=== PATIENT | male | born 1940 | race Caucasian/White ===

== ENCOUNTER 2019-11-05 14:57 | Inpatient (IN) | payer MEDICARE, OTHER ==
--- NOTE | 2019-11-05 15:20 | EDM.PDOC ---
ED HPI GENERAL MEDICAL PROBLEM - General Chief Complaint: Respiratory Problem Stated Complaint: [facility] Time Seen by Provider: 11/05/19 15:18 Source of Information: Reports: Patient History Limitations: Reports: No Limitations - History of Present Illness INITIAL COMMENTS - FREE TEXT/NARRATIVE: pt arrived with a history of being sob. Onset: Other (this has been going on for 1 week. He was much more sob today. he has noticed increased swelling in his legs. ) Duration: Hour(s): Location: Reports: Chest, Lower Extremity, Left, Lower Extremity, Right Associated Symptoms: Reports: Cough, Shortness of Breath, Weakness - Related Data Allergies Allergy/AdvReac Type Severity Reaction Status Date / Time No Known Allergies Allergy Verified 11/05/19 15:13 Home Meds: Home Meds Albuterol [Proventil Neb Soln] 1 ampule NEB Q4HRRT PRN 09/24/13 [History] Albuterol [Ventolin HFA] 2 puff INH Q4H PRN 09/24/13 [History] Cyclobenzaprine [Flexeril] 10 - 15 mg PO BEDTIME PRN 09/24/13 [History] Escitalopram [Lexapro] 10 mg PO DAILY 09/24/13 [History] Isosorbide Mononitrate [Imdur] 30 mg PO DAILY 09/24/13 [History] Lisinopril [Zestril] 2.5 mg PO DAILY 09/24/13 [History] Montelukast [Singulair] 10 mg PO DAILY 09/24/13 [History] Nitroglycerin [Nitrostat] 0.4 mg SL ASDIRECTED PRN 09/24/13 [History] Pramipexole [Mirapex] 2 mg PO BEDTIME 09/24/13 [History] Zolpidem Tartrate [Ambien Cr] 12.5 mg PO BEDTIME 09/24/13 [History] atorvaSTATin [Lipitor] 20 mg PO BEDTIME 09/24/13 [History] hydroCHLOROthiazide [Hydrochlorothiazide] 25 mg PO DAILY 09/24/13 [History] metFORMIN HCl [Glucophage] 1,000 mg PO BIDM 09/24/13 [History] traZODone HCl [Trazodone HCl] 150 mg PO BEDTIME 09/24/13 [History] Aspirin [Low Dose Aspirin EC] 81 mg PO DAILY 09/30/14 [History] Fluticasone Propionate [Flonase] 2 spray NS DAILY 09/30/14 [History] Triamcinolone Acetonide [Kenalog 0.1% Crm] 1 applic TOP BID 09/30/14 [History] Furosemide [Lasix] 20 mg PO DAILY 09/16/16 [History] Exenatide Microspheres [Bydureon Pen] 2 mg SQ WEEKLY 09/18/16 [History] Insulin Glargine,Hum.Rec.Anlog [Lantus Solostar] 14 units SQ Q12H 11/05/19 [ History] Tamsulosin HCl [Flomax] 0.4 mg PO DAILY 11/05/19 [History] Tolterodine Tartrate [Detrol LA] 4 mg PO DAILY 11/05/19 [History] glipiZIDE [Glucotrol] 10 mg PO BID 11/05/19 [History] predniSONE [Prednisone] 5 mg PO DAILY 11/05/19 [History] Albuterol [Proventil Neb Soln] 2.5 mg NEB Q4H PRN #60 neb 11/07/19 [Rx] predniSONE 40 mg PO DAILY #6 tablet 11/07/19 [Rx] Past Medical History HEENT History: Reports: Cataract, Impaired Vision Cardiovascular History: Reports: CAD, High Cholesterol, Hypertension, SOB on Exertion, Stents Respiratory History: Reports: Bronchitis, Recurrent, COPD, Sleep Apnea, SOB Gastrointestinal History: Reports: Colon Polyp, GERD, Hemorrhoids Genitourinary History: Reports: UTI, Recurrent Musculoskeletal History: Reports: Back Pain, Chronic, Fracture, Neck Pain, Chronic, Osteoarthritis Neurological History: Reports: None Psychiatric History: Reports: Depression Endocrine/Metabolic History: Reports: Diabetes, Type II, Obesity/BMI 30+ Dermatologic History: Reports: Eczema - Infectious Disease History Infectious Disease History: Reports: Chicken Pox, Measles, Mumps, Pertussis ( Whooping Cough) - Past Surgical History HEENT Surgical History: Reports: Cataract Surgery Cardiovascular Surgical History: Reports: Coronary Artery Stent Neurological Surgical History: Reports: Discectomy Social & Family History - Tobacco Use Smoking Status *Q: Former Smoker Used Tobacco, but Quit: Yes Month/Year Tobacco Last Used: 2005 - Caffeine Use Caffeine Use: Reports: Coffee - Recreational Drug Use Recreational Drug Use: No ED ROS GENERAL - Review of Systems Review Of Systems: See Below Constitutional: Reports: Malaise, Weakness, Decreased Appetite HEENT: Reports: No Symptoms Respiratory: Reports: Shortness of Breath, Wheezing, Cough Cardiovascular: Reports: No Symptoms Endocrine: Reports: No Symptoms GI/Abdominal: Reports: No Symptoms : Reports: No Symptoms Skin: Reports: No Symptoms Neurological: Reports: No Symptoms Psychiatric: Reports: Anxiety ED EXAM, GENERAL - Physical Exam Exam: See Below Free Text/Narrative:: pt has noticed increased ankle swelling and increased sob for 1 week. He has not had a fever. He was much worse today. He has been coughing but it is non productive. Exam Limited By: No Limitations General Appearance: Alert, Anxious, Moderate Distress Ears: Normal TMs Nose: Normal Inspection Throat/Mouth: Normal Inspection Head: Atraumatic Neck: Normal Inspection Respiratory/Chest: Decreased Breath Sounds, Rales, Wheezing Cardiovascular: Regular Rate, Rhythm, Tachycardia, Irregularly Irregular GI/Abdominal: Soft (Male) Exam: Deferred Rectal (Males) Exam: Deferred Back Exam: Normal Inspection Extremities: Pedal Edema, Other ( plus 2 edema. ) Psychiatric: Normal Affect, Anxious Course - Vital Signs Last Recorded V/S: Last Vital Signs Temp 35.5 C L 11/07/19 07:30 Pulse 90 11/07/19 10:52 Resp 16 11/07/19 07:30 BP 160/65 H 11/07/19 10:10 Pulse Ox 94 L 11/07/19 07:30 - Orders/Labs/Meds Labs: Laboratory Tests 11/05/19 11/05/19 11/05/19 Range/Units 15:36 15:36 15:45 WBC 9.2 (4.5-11.0) K/uL RBC 4.44 (4.30-5.90) M/uL Hgb 12.7 (12.0-15.0) g/dL Hct 40.5 (40.0-54.0) % MCV 91 (80-98) fL MCH 29 (27-31) pg MCHC 31 L (32-36) % Plt Count 183 (150-400) K/uL Neut % (Auto) 80 H (36-66) % Lymph % (Auto) 12 L (24-44) % Smith % (Auto) 6 (2-6) % Eos % (Auto) 1 L (2-4) % Baso % (Auto) 0 (0-1) % D-Dimer, Quantitative (0.0-400.0) ng/mL Puncture Site ABG pH (7.350-7.450) ABG pCO2 (35.0-42.0) mmHg ABG pO2 (75.0-100.0) mmHg ABG HCO3 (22.0-26.0) mmol/L ABG Total CO2 (23.0-27.0) mmol/L ABG O2 Saturation (95.0-98.0) % ABG O2 Content (15.0-23.0) %vol ABG Base Excess mm/L ABG Hemoglobin (13.5-18.0) g/dL ABG Oxyhemoglobin % ABG Carboxyhemoglobin (0.0-1.6) % ABG Methemoglobin % Antoine Test O2 Delivery Device Sodium 142 (140-148) mmol/L Potassium 3.9 (3.6-5.2) mmol/L Chloride 104 (100-108) mmol/L Carbon Dioxide 26 (21-32) mmol/L Anion Gap 12.4 (5.0-14.0) mmol/L BUN 12 (7-18) mg/dL Creatinine 1.3 (0.8-1.3) mg/dL Est Cr Clr Drug Dosing 38.30 mL/min Estimated GFR (MDRD) 54 L (>60) Glucose 111 H (74-106) mg/dL Calcium 8.2 L (8.5-10.1) mg/dL Total Bilirubin 0.3 (0.2-1.0) mg/dL AST 15 (15-37) U/L ALT 29 (12-78) U/L Alkaline Phosphatase 127 H (46-116) U/L Troponin I (0.000-0.056) ng/mL NT-Pro-B Natriuret Pep 261 (5-450) pg/mL Total Protein 6.6 (6.4-8.2) g/dL Albumin 3.2 L (3.4-5.0) g/dL Globulin 3.4 (2.3-3.5) g/dL Albumin/Globulin Ratio 0.9 L (1.2-2.2) Urine Color (YELLOW) Urine Appearance (CLEAR) Urine pH (5.0-8.0) Ur Specific [place] (1.008-1.030) Urine Protein (NEGATIVE) mg/dL Urine Glucose (UA) (NEGATIVE) mg/dL Urine Ketones (NEGATIVE) mg/dL Urine Occult Blood (NEGATIVE) Urine Nitrite (NEGATIVE) Urine Bilirubin (NEGATIVE) Urine Urobilinogen (0.2-1.0) EU/dL Ur Leukocyte Esterase (NEGATIVE) Urine RBC (0-5) Urine WBC (0-5) Ur Epithelial Cells Amorphous Sediment Urine Bacteria Urine Mucus 11/05/19 11/05/19 11/05/19 Range/Units 15:46 15:47 16:38 WBC (4.5-11.0) K/uL RBC (4.30-5.90) M/uL Hgb (12.0-15.0) g/dL Hct (40.0-54.0) % MCV (80-98) fL MCH (27-31) pg MCHC (32-36) % Plt Count (150-400) K/uL Neut % (Auto) (36-66) % Lymph % (Auto) (24-44) % Smith % (Auto) (2-6) % Eos % (Auto) (2-4) % Baso % (Auto) (0-1) % D-Dimer, Quantitative (0.0-400.0) ng/mL Puncture Site Rt radial ABG pH 7.445 (7.350-7.450) ABG pCO2 36.3 (35.0-42.0) mmHg ABG pO2 69.7 L (75.0-100.0) mmHg ABG HCO3 24.5 (22.0-26.0) mmol/L ABG Total CO2 22.0 L (23.0-27.0) mmol/L ABG O2 Saturation 93.5 L (95.0-98.0) % ABG O2 Content 15.7 (15.0-23.0) %vol ABG Base Excess 1.1 mm/L ABG Hemoglobin 12.1 L (13.5-18.0) g/dL ABG Oxyhemoglobin 91.8 % ABG Carboxyhemoglobin 1.1 (0.0-1.6) % ABG Methemoglobin 0.7 % Antoine Test Passed O2 Delivery Device Nasal cannula Sodium (140-148) mmol/L Potassium (3.6-5.2) mmol/L Chloride (100-108) mmol/L Carbon Dioxide (21-32) mmol/L Anion Gap (5.0-14.0) mmol/L BUN (7-18) mg/dL Creatinine (0.8-1.3) mg/dL Est Cr Clr Drug Dosing mL/min Estimated GFR (MDRD) (>60) Glucose (74-106) mg/dL Calcium (8.5-10.1) mg/dL Total Bilirubin (0.2-1.0) mg/dL AST (15-37) U/L ALT (12-78) U/L Alkaline Phosphatase (46-116) U/L Troponin I < 0.017 (0.000-0.056) ng/mL NT-Pro-B Natriuret Pep (5-450) pg/mL Total Protein (6.4-8.2) g/dL Albumin (3.4-5.0) g/dL Globulin (2.3-3.5) g/dL Albumin/Globulin Ratio (1.2-2.2) Urine Color Yellow (YELLOW) Urine Appearance Clear (CLEAR) Urine pH 5.5 (5.0-8.0) Ur Specific [place] 1.020 (1.008-1.030) Urine Protein 30 H (NEGATIVE) mg/dL Urine Glucose (UA) Negative (NEGATIVE) mg/dL Urine Ketones Negative (NEGATIVE) mg/dL Urine Occult Blood Negative (NEGATIVE) Urine Nitrite Negative (NEGATIVE) Urine Bilirubin Negative (NEGATIVE) Urine Urobilinogen 0.2 (0.2-1.0) EU/dL Ur Leukocyte Esterase Small H (NEGATIVE) Urine RBC Not seen (0-5) Urine WBC 0-5 (0-5) Ur Epithelial Cells Not seen Amorphous Sediment Few Urine Bacteria Not seen Urine Mucus Not seen 11/05/19 Range/Units 16:39 WBC (4.5-11.0) K/uL RBC (4.30-5.90) M/uL Hgb (12.0-15.0) g/dL Hct (40.0-54.0) % MCV (80-98) fL MCH (27-31) pg MCHC (32-36) % Plt Count (150-400) K/uL Neut % (Auto) (36-66) % Lymph % (Auto) (24-44) % Smith % (Auto) (2-6) % Eos % (Auto) (2-4) % Baso % (Auto) (0-1) % D-Dimer, Quantitative 514 H (0.0-400.0) ng/mL Puncture Site ABG pH (7.350-7.450) ABG pCO2 (35.0-42.0) mmHg ABG pO2 (75.0-100.0) mmHg ABG HCO3 (22.0-26.0) mmol/L ABG Total CO2 (23.0-27.0) mmol/L ABG O2 Saturation (95.0-98.0) % ABG O2 Content (15.0-23.0) %vol ABG Base Excess mm/L ABG Hemoglobin (13.5-18.0) g/dL ABG Oxyhemoglobin % ABG Carboxyhemoglobin (0.0-1.6) % ABG Methemoglobin % Antoine Test O2 Delivery Device Sodium (140-148) mmol/L Potassium (3.6-5.2) mmol/L Chloride (100-108) mmol/L Carbon Dioxide (21-32) mmol/L Anion Gap (5.0-14.0) mmol/L BUN (7-18) mg/dL Creatinine (0.8-1.3) mg/dL Est Cr Clr Drug Dosing mL/min Estimated GFR (MDRD) (>60) Glucose (74-106) mg/dL Calcium (8.5-10.1) mg/dL Total Bilirubin (0.2-1.0) mg/dL AST (15-37) U/L ALT (12-78) U/L Alkaline Phosphatase (46-116) U/L Troponin I (0.000-0.056) ng/mL NT-Pro-B Natriuret Pep (5-450) pg/mL Total Protein (6.4-8.2) g/dL Albumin (3.4-5.0) g/dL Globulin (2.3-3.5) g/dL Albumin/Globulin Ratio (1.2-2.2) Urine Color (YELLOW) Urine Appearance (CLEAR) Urine pH (5.0-8.0) Ur Specific [place] (1.008-1.030) Urine Protein (NEGATIVE) mg/dL Urine Glucose (UA) (NEGATIVE) mg/dL Urine Ketones (NEGATIVE) mg/dL Urine Occult Blood (NEGATIVE) Urine Nitrite (NEGATIVE) Urine Bilirubin (NEGATIVE) Urine Urobilinogen (0.2-1.0) EU/dL Ur Leukocyte Esterase (NEGATIVE) Urine RBC (0-5) Urine WBC (0-5) Ur Epithelial Cells Amorphous Sediment Urine Bacteria Urine Mucus Meds: Medications Discontinued Medications Generic Name Dose Route Start Last Admin Trade Name Freq PRN Reason Stop Dose Admin Acetaminophen 650 mg 11/05/19 17:25 Tylenol PO Q4H PRN Pain (Mild 1-3)/fever Albuterol 2.5 mg 11/05/19 15:42 11/05/19 15:45 Proventil Neb Soln NEB 11/05/19 15:43 2.5 mg ONETIME ONE Administration Albuterol Confirm 11/05/19 15:41 11/05/19 15:55 Proventil Neb Soln Administered 11/05/19 15:42 Not Given Dose 2.5 mg .ROUTE .STK-MED ONE Albuterol 2.5 mg 11/05/19 17:25 11/06/19 01:26 Proventil Neb Soln NEB 2.5 mg Q4H PRN Administration Shortness Of Breath/wheezing Albuterol/Ipratropium 3 ml 11/05/19 21:00 11/07/19 10:50 Duoneb 3.0-0.5 Mg/3 Ml NEB 3 ml QIDRT KAYLA Administration Aspirin 81 mg 11/06/19 09:00 11/07/19 08:01 Halfprin PO 81 mg DAILY KAYLA Administration Atorvastatin Calcium 20 mg 11/05/19 21:00 11/06/19 21:02 Lipitor PO 20 mg BEDTIME KAYLA Administration Cyclobenzaprine HCl 10 mg 11/05/19 21:19 11/05/19 21:33 Flexeril PO 10 mg BEDTIME PRN Administration Muscle Spasm Dextrose 15 gm 11/05/19 17:25 Glutose 15 PO ONETIME PRN Hypoglycemia Dextrose/Water 50 ml 11/05/19 17:25 Dextrose 50% In Water IV ONETIME PRN Hypoglycemia Enoxaparin Sodium 40 mg 11/05/19 21:00 11/06/19 21:02 Lovenox SUBCUT 40 mg BEDTIME KAYLA Administration Escitalopram Oxalate 10 mg 11/06/19 09:00 11/07/19 08:01 Lexapro PO 10 mg DAILY KAYLA Administration Fluticasone Propionate 0 gm 11/06/19 09:00 11/07/19 08:01 Flonase NASBOTH 2 sprays DAILY KAYLA Administration Furosemide 60 mg 11/05/19 16:37 11/05/19 19:41 Lasix IVPUSH 11/05/19 16:38 Not Given ONETIME ONE Furosemide 20 mg 11/06/19 09:00 11/07/19 08:00 Lasix PO 20 mg DAILY KAYLA Administration Glipizide 10 mg 11/05/19 21:00 11/07/19 08:01 Glucotrol PO 10 mg BID KAYLA Administration Hydrochlorothiazide 25 mg 11/06/19 09:00 11/07/19 08:01 Hydrochlorothiazide PO 25 mg DAILY KAYLA Administration Sodium Chloride 1,000 mls @ 150 mls/hr 11/05/19 17:00 Normal Saline IV ASDIRECTED KAYLA Sodium Chloride 100 mls @ 3 mls/sec 11/05/19 17:00 Normal Saline IV ASDIRECTED [facility] Insulin Glargine 14 units 11/05/19 21:00 11/07/19 10:06 Lantus Solostar SUBCUT Not Given BID [facility] Insulin Human Lispro 0 unit 11/05/19 17:25 11/07/19 07:39 Humalog SUBCUT 1 unit QIDACANDBED [facility] Administration Protocol Iopamidol 100 ml 11/05/19 17:00 [id number] (76%) IV . DIRECTED [facility] Isosorbide Mononitrate 30 mg 11/06/19 09:00 11/07/19 08:00 Imdur PO 30 mg DAILY KAYLA Administration Lisinopril 2.5 mg 11/06/19 09:00 11/07/19 10:10 Prinivil PO 2.5 mg DAILY KAYLA Administration Metformin HCl 1,000 mg 11/05/19 17:25 11/07/19 08:00 Glucophage PO 1,000 mg BIDM KAYLA Administration Methylprednisolone Sodium Succinate 125 mg 11/05/19 16:13 11/05/19 16:25 Solu-Medrol IVPUSH 11/05/19 16:14 125 mg ONETIME ONE Administration Methylprednisolone Sodium Succinate 40 mg 11/05/19 22:00 11/06/19 03:27 Solu-Medrol IVPUSH 40 mg Q6H KAYLA Administration Methylprednisolone Sodium Succinate 40 mg 11/06/19 16:00 11/07/19 03:32 Solu-Medrol IVPUSH 40 mg Q12H KAYLA Administration Montelukast Sodium 10 mg 11/06/19 09:00 11/07/19 08:01 Singulair PO 10 mg DAILY KAYLA Administration Ondansetron HCl 4 mg 11/05/19 17:25 Zofran IV Q4H PRN Nausea/Vomiting Polyethylene Glycol 17 gm 11/05/19 17:25 Miralax PO DAILY PRN Constipation Pramipexole Dihydrochloride 2 mg 11/05/19 21:00 11/06/19 21:00 Mirapex PO 2 mg BEDTIME KAYLA Administration Prednisone 40 mg 11/07/19 09:30 11/07/19 10:10 Prednisone PO 40 mg DAILY KAYLA Administration Sodium Chloride 10 ml 11/05/19 16:12 11/05/19 16:25 Saline Flush FLUSH 10 ml ASDIRECTED PRN Administration Keep Vein Open Sodium Chloride 10 ml 11/05/19 17:25 Saline Flush FLUSH ASDIRECTED PRN Keep Vein Open Tamsulosin HCl 0.4 mg 11/06/19 09:00 11/07/19 08:01 Flomax PO 0.4 mg DAILY KAYLA Administration Tolterodine Tartrate 2 mg 11/06/19 09:00 11/07/19 08:00 Detrol PO 2 mg BID KAYLA Administration Trazodone HCl 150 mg 11/05/19 21:00 11/06/19 21:01 Trazodone PO 150 mg BEDTIME KAYLA Administration Zolpidem Tartrate 10 mg 11/05/19 21:00 11/06/19 21:01 Ambien PO 10 mg BEDTIME KAYLA Administration - Re-Assessments/Exams Free Text/Narrative Re-Assessment/Exam: 11/05/19 16:48 chest xray showed a infiltrate and a cat scan of the chest was obtained. Pt is in atrial fib. He has a rhythm strip from 2017 which did show atrial fib. He has not had a fwever. He has not traveled or had company from out of the area. 11/05/19 16:57 Departure - Departure Time of Disposition: 10:55 Disposition: Admitted As Inpatient 68 Condition: Fair Clinical Impression: COPD exacerbation, Fluid overload - Discharge Information Sepsis Event Note - Focused Exam Date Exam was Performed: 11/08/19 Time Exam was Performed: 19:07
[2019-11-05] MEDS ORDERED: Albuterol 0.083% 2.5 MG/3 ML Neb Soln ONE (15:41)
[2019-11-05] MEDS ORDERED: Albuterol 0.083% 2.5 MG/3 ML Neb Soln NEB ONE (15:42)
[2019-11-05] MEDS ORDERED: Sodium Chloride 0.9% 10 ML Syringe FLUSH PRN ×2 (16:12→17:25)
[2019-11-05] MEDS ORDERED: methylPREDNISolone Sodium Succinate 125 MG/2 ML SDV IVPUSH ONE (16:13)
[2019-11-05] MEDS ORDERED: Furosemide 40 MG/4 ML VIAL IVPUSH ONE (16:37)
--- NOTE | 2019-11-05 16:44 | CRLCR ---
Indication: Shortness of breath Technique: Chest 2 views Comparison: None Findings: Cardiovascular and mediastinum: Heart size and vasculature are normal in caliber and appearance. Lungs and pleural spaces: Perihilar congestive changes are present. Questionable nodular opacity in the lateral left mid lung. Remainder of the lungs and pleural spaces are clear. Bones and soft tissues: No significant findings. Impression: 1. Congestive changes in the hilar regions are nonspecific. Acute infectious or inflammatory process is not definite but possible. 2. Nodular opacity in the lateral left lung is indeterminate. 3. Short-term follow-up PA and lateral chest x-ray or CT evaluation is recommended. Dictated by Omar Calzada MD @ 11/05/2019 4:42:46 PM Dictated by: Omar Calzada MD @ 11/05/2019 16:42:52 (Electronically Signed)
[2019-11-05] MEDS ORDERED: Iopamidol 755 Mg/ML 100 ML Bottle IV SCH (17:00)
[2019-11-05] MEDS ORDERED: Sodium Chloride 0.9% 1,000 ML IV SCH (17:00)
[2019-11-05] MEDS ORDERED: Sodium Chloride 0.9% 100 ML IV SCH (17:00)
--- NOTE | 2019-11-05 17:00 | PCM.HP.2 ---
H&P History of Present Illness - General Date of Service: 11/05/19 Admit Problem/Dx: Admission Diagnosis/Problem Admission Diagnosis/Problem Dyspnea Source of Information: Patient, Provider, RN Notes Reviewed History Limitations: Reports: No Limitations - History of Present Illness Initial Comments - Free Text/Narative: Mr. Corbin is a 79-year-old gentleman who is admitted through the emergency department with shortness of breath secondary to COPD exacerbation. He has a known history of COPD, does not currently require oxygen at home. Over the last 3 weeks he has become progressively more short of breath to the point where he become short of breath with very minimal exertion. He has not had nocturnal dyspnea or significant shortness of breath at rest. He does have a known history of coronary artery disease but denies previous diagnosis of congestive heart failure. On evaluation in the emergency department BNP is within normal range. He was found to have peripheral edema which she reports has been worse recently. CT scan of the chest shows no new infiltrates, evidence of previous pleural disease and lung changes which are chronic. - Related Data Allergies/Adverse Reactions: Allergies Allergy/AdvReac Type Severity Reaction Status Date / Time No Known Allergies Allergy Verified 11/05/19 15:13 Home Medications: Home Meds Albuterol [Proventil Neb Soln] 1 ampule NEB Q4HRRT PRN 09/24/13 [History] Albuterol [Ventolin HFA] 2 puff INH Q4H PRN 09/24/13 [History] Cyclobenzaprine [Flexeril] 10 - 15 mg PO BEDTIME PRN 09/24/13 [History] Escitalopram [Lexapro] 10 mg PO DAILY 09/24/13 [History] Isosorbide Mononitrate [Imdur] 30 mg PO DAILY 09/24/13 [History] Lisinopril [Zestril] 2.5 mg PO DAILY 09/24/13 [History] Montelukast [Singulair] 10 mg PO DAILY 09/24/13 [History] Nitroglycerin [Nitrostat] 0.4 mg SL ASDIRECTED PRN 09/24/13 [History] Pramipexole [Mirapex] 2 mg PO BEDTIME 09/24/13 [History] Zolpidem Tartrate [Ambien Cr] 12.5 mg PO BEDTIME 09/24/13 [History] atorvaSTATin [Lipitor] 20 mg PO BEDTIME 09/24/13 [History] hydroCHLOROthiazide [Hydrochlorothiazide] 25 mg PO DAILY 09/24/13 [History] metFORMIN HCl [Glucophage] 1,000 mg PO BIDM 09/24/13 [History] traZODone HCl [Trazodone HCl] 150 mg PO BEDTIME 09/24/13 [History] Aspirin [Low Dose Aspirin EC] 81 mg PO DAILY 09/30/14 [History] Fluticasone Propionate [Flonase] 2 spray NS DAILY 09/30/14 [History] Triamcinolone Acetonide [Kenalog 0.1% Crm] 1 applic TOP BID 09/30/14 [History] Furosemide [Lasix] 20 mg PO DAILY 09/16/16 [History] Exenatide Microspheres [Bydureon Pen] 2 mg SQ WEEKLY 09/18/16 [History] Insulin Glargine,Hum.Rec.Anlog [Lantus Solostar] 14 units SQ Q12H 11/05/19 [ History] Tamsulosin HCl [Flomax] 0.4 mg PO DAILY 11/05/19 [History] Tolterodine Tartrate [Detrol LA] 4 mg PO DAILY 11/05/19 [History] glipiZIDE [Glucotrol] 10 mg PO BID 11/05/19 [History] predniSONE [Prednisone] 5 mg PO DAILY 11/05/19 [History] Past Medical History HEENT History: Reports: Cataract, Impaired Vision Cardiovascular History: Reports: CAD, High Cholesterol, Hypertension, SOB on Exertion, Stents Respiratory History: Reports: Bronchitis, Recurrent, COPD, Sleep Apnea, SOB Gastrointestinal History: Reports: Colon Polyp, GERD, Hemorrhoids Genitourinary History: Reports: UTI, Recurrent Musculoskeletal History: Reports: Back Pain, Chronic, Fracture, Neck Pain, Chronic, Osteoarthritis Neurological History: Reports: None Psychiatric History: Reports: Depression Endocrine/Metabolic History: Reports: Diabetes, Type II, Obesity/BMI 30+ Dermatologic History: Reports: Eczema - Infectious Disease History Infectious Disease History: Reports: Chicken Pox, Measles, Mumps, Pertussis ( Whooping Cough) - Past Surgical History HEENT Surgical History: Reports: Cataract Surgery Cardiovascular Surgical History: Reports: Coronary Artery Stent Neurological Surgical History: Reports: Discectomy Social & Family History - Tobacco Use Smoking Status *Q: Former Smoker Used Tobacco, but Quit: Yes Month/Year Tobacco Last Used: 2005 - Caffeine Use Caffeine Use: Reports: Coffee - Recreational Drug Use Recreational Drug Use: No H&P Review of Systems - Review of Systems: Review Of Systems: See Below General: Denies: Fever, Chills, Weakness HEENT: Reports: No Symptoms Pulmonary: Reports: Shortness of Breath, Wheezing. Denies: Pleuritic Chest Pain , Cough, Sputum, Hemoptysis Cardiovascular: Reports: Dyspnea on Exertion, Edema. Denies: Chest Pain, Palpitations, Orthopnea, PND, Lightheadedness, Syncope Gastrointestinal: Reports: No Symptoms Genitourinary: Reports: No Symptoms Musculoskeletal: Reports: No Symptoms Skin: Reports: No Symptoms Psychiatric: Reports: No Symptoms Neurological: Reports: No Symptoms Hematologic/Lymphatic: Reports: No Symptoms Immunologic: Reports: No Symptoms Exam - Exam Exam: See Below - Vital Signs Vital Signs: Last Vital Signs Temp 96.7 F L 11/05/19 15:19 Pulse 95 11/05/19 16:27 Resp 22 H 11/05/19 15:19 BP 143/74 H 11/05/19 16:27 Pulse Ox 95 11/05/19 16:27 Weight: 259 lb - Exam Quality Assessment: Supplemental Oxygen, DVT Prophylaxis General: Alert, Oriented, Cooperative, Moderate Distress HEENT: Conjunctiva Clear, Hearing Intact, Mucosa Moist & [place], Normal Nasal Septum, Posterior Pharynx Clear, Pupils Equal Neck: Supple, Trachea Midline, +2 Carotid Pulse wo Bruit Lungs: Normal Respiratory Effort, Decreased Breath Sounds, Wheezing. No: Rales , Rhonchi Cardiovascular: Regular Rate, Regular Rhythm, Normal S1, Normal S2. No: Systolic Murmur, Diastolic Murmur GI/Abdominal Exam: Soft, Non-Tender, No Organomegaly, No Distention Back Exam: Normal Inspection, Full Range of Motion Extremities: Non-Tender, Pedal Edema Skin: Warm, Dry, Intact Neurological: Cranial Nerves Intact, Strength Equal Bilateral, Normal Speech, Normal Tone, Sensation Intact. No: Focal Deficit Neuro Extensive - Mental Status: Alert, Oriented x3, Normal Mood/Affect, Normal Cognition, Memory Intact - Patient Data Lab Results Last 24 hrs: Laboratory Results - last 24 hr 11/05/19 11/05/19 11/05/19 Range/Units 15:36 15:36 15:45 WBC 9.2 (4.5-11.0) K/uL RBC 4.44 (4.30-5.90) M/uL Hgb 12.7 (12.0-15.0) g/dL Hct 40.5 (40.0-54.0) % MCV 91 (80-98) fL MCH 29 (27-31) pg MCHC 31 L (32-36) % Plt Count 183 (150-400) K/uL Neut % (Auto) 80 H (36-66) % Lymph % (Auto) 12 L (24-44) % [place] % (Auto) 6 (2-6) % Eos % (Auto) 1 L (2-4) % Baso % (Auto) 0 (0-1) % Puncture Site ABG pH (7.350-7.450) ABG pCO2 (35.0-42.0) mmHg ABG pO2 (75.0-100.0) mmHg ABG HCO3 (22.0-26.0) mmol/L ABG Total CO2 (23.0-27.0) mmol/L ABG O2 Saturation (95.0-98.0) % ABG O2 Content (15.0-23.0) %vol ABG Base Excess mm/L ABG Hemoglobin (13.5-18.0) g/dL ABG Oxyhemoglobin % ABG Carboxyhemoglobin (0.0-1.6) % ABG Methemoglobin % Antoine Test O2 Delivery Device Sodium 142 (140-148) mmol/L Potassium 3.9 (3.6-5.2) mmol/L Chloride 104 (100-108) mmol/L Carbon Dioxide 26 (21-32) mmol/L Anion Gap 12.4 (5.0-14.0) mmol/L BUN 12 (7-18) mg/dL Creatinine 1.3 (0.8-1.3) mg/dL Est Cr Clr Drug Dosing 38.30 mL/min Estimated GFR (MDRD) 54 L (>60) Glucose 111 H (74-106) mg/dL Calcium 8.2 L (8.5-10.1) mg/dL Total Bilirubin 0.3 (0.2-1.0) mg/dL AST 15 (15-37) U/L ALT 29 (12-78) U/L Alkaline Phosphatase 127 H (46-116) U/L Troponin I (0.000-0.056) ng/mL NT-Pro-B Natriuret Pep 261 (5-450) pg/mL Total Protein 6.6 (6.4-8.2) g/dL Albumin 3.2 L (3.4-5.0) g/dL Globulin 3.4 (2.3-3.5) g/dL Albumin/Globulin Ratio 0.9 L (1.2-2.2) Urine Color (YELLOW) Urine Appearance (CLEAR) Urine pH (5.0-8.0) Ur Specific [place] (1.008-1.030) Urine Protein (NEGATIVE) mg/dL Urine Glucose (UA) (NEGATIVE) mg/dL Urine Ketones (NEGATIVE) mg/dL Urine Occult Blood (NEGATIVE) Urine Nitrite (NEGATIVE) Urine Bilirubin (NEGATIVE) Urine Urobilinogen (0.2-1.0) EU/dL Ur Leukocyte Esterase (NEGATIVE) Urine RBC (0-5) Urine WBC (0-5) Ur Epithelial Cells Amorphous Sediment Urine Bacteria Urine Mucus 11/05/19 11/05/19 11/05/19 Range/Units 15:46 15:47 16:38 WBC (4.5-11.0) K/uL RBC (4.30-5.90) M/uL Hgb (12.0-15.0) g/dL Hct (40.0-54.0) % MCV (80-98) fL MCH (27-31) pg MCHC (32-36) % Plt Count (150-400) K/uL Neut % (Auto) (36-66) % Lymph % (Auto) (24-44) % [place] % (Auto) (2-6) % Eos % (Auto) (2-4) % Baso % (Auto) (0-1) % Puncture Site Rt radial ABG pH 7.445 (7.350-7.450) ABG pCO2 36.3 (35.0-42.0) mmHg ABG pO2 69.7 L (75.0-100.0) mmHg ABG HCO3 24.5 (22.0-26.0) mmol/L ABG Total CO2 22.0 L (23.0-27.0) mmol/L ABG O2 Saturation 93.5 L (95.0-98.0) % ABG O2 Content 15.7 (15.0-23.0) %vol ABG Base Excess 1.1 mm/L ABG Hemoglobin 12.1 L (13.5-18.0) g/dL ABG Oxyhemoglobin 91.8 % ABG Carboxyhemoglobin 1.1 (0.0-1.6) % ABG Methemoglobin 0.7 % Antoine Test Passed O2 Delivery Device Nasal cannula Sodium (140-148) mmol/L Potassium (3.6-5.2) mmol/L Chloride (100-108) mmol/L Carbon Dioxide (21-32) mmol/L Anion Gap (5.0-14.0) mmol/L BUN (7-18) mg/dL Creatinine (0.8-1.3) mg/dL Est Cr Clr Drug Dosing mL/min Estimated GFR (MDRD) (>60) Glucose (74-106) mg/dL Calcium (8.5-10.1) mg/dL Total Bilirubin (0.2-1.0) mg/dL AST (15-37) U/L ALT (12-78) U/L Alkaline Phosphatase (46-116) U/L Troponin I < 0.017 (0.000-0.056) ng/mL NT-Pro-B Natriuret Pep (5-450) pg/mL Total Protein (6.4-8.2) g/dL Albumin (3.4-5.0) g/dL Globulin (2.3-3.5) g/dL Albumin/Globulin Ratio (1.2-2.2) Urine Color Yellow (YELLOW) Urine Appearance Clear (CLEAR) Urine pH 5.5 (5.0-8.0) Ur Specific [place] 1.020 (1.008-1.030) Urine Protein 30 H (NEGATIVE) mg/dL Urine Glucose (UA) Negative (NEGATIVE) mg/dL Urine Ketones Negative (NEGATIVE) mg/dL Urine Occult Blood Negative (NEGATIVE) Urine Nitrite Negative (NEGATIVE) Urine Bilirubin Negative (NEGATIVE) Urine Urobilinogen 0.2 (0.2-1.0) EU/dL Ur Leukocyte Esterase Small H (NEGATIVE) Urine RBC Not seen (0-5) Urine WBC 0-5 (0-5) Ur Epithelial Cells Not seen Amorphous Sediment Few Urine Bacteria Not seen Urine Mucus Not seen Result Diagrams: 11/05/19 15:36 11/05/19 15:36 Sepsis Event Note - Evaluation Sepsis Screening Result: No Definite Risk - Focused Exam Vital Signs: Vital Signs Temp Pulse Resp BP Pulse Ox 11/05/19 16:27 95 143/74 H 95 11/05/19 15:58 93 172/74 H 96 11/05/19 15:19 96.7 F L 98 22 H 170/90 H 95 11/05/19 15:02 96.7 F L 98 22 H 170/90 H 95 Date Exam was Performed: 11/05/19 Time Exam was Performed: 17:56 *Q Meaningful Use (ADM) - VTE Risk Assess *Q Each Risk Factor Represents 1 Point: Swollen Legs, Current, Obesity ( BMI > 25 kg/m2), Abnormal Pulmonary Function (COPD) Total Score 1 Point Risk Factors: 3 Each Risk Factor Represents 2 Points: None Total Score 2 Point Risk Factors: 0 Each Risk Factor Represents 3 Points: Age 75 Years or Greater Total Score 3 Point Risk Factors: 3 Each Risk Factor Represents 5 Points: None Total Score 5 Point Risk Factors: 0 Venous Thromboembolism Risk Factor Score *Q: 6 Problem List Initiated/Reviewed/Updated: Yes Orders Last 24hrs: Active Orders 24 hr Category Date Time Status Patient Status Manage Transfer [TRANSFER] Routine ADT 11/05/19 16:46 Active EKG Documentation Completion [RC] ASDIRECTED Care 11/05/19 15:45 Active RT Aerosol Therapy [RC] ASDIRECTED Care 11/05/19 15:43 Active Ang Chest [CT] Stat Exams 11/05/19 16:47 Ordered Chest wo Cont [CT] Stat Exams 11/05/19 16:58 Ordered CRP [C-REACTIVE PROTEIN] [CHEM] Stat Lab 11/05/19 16:55 Ordered DD [D-DIMER QUANTITATIVE] [COAG] Stat Lab 11/05/19 16:39 Received Iopamidol [Isovue-370 (76%)] Med 11/05/19 17:00 Active 100 ml IV . DIRECTED Sodium Chloride 0.9% [Normal Saline] 1,000 ml Med 11/05/19 17:00 Active IV ASDIRECTED Sodium Chloride 0.9% [Normal Saline] 100 ml Med 11/05/19 17:00 Active IV ASDIRECTED Sodium Chloride 0.9% [Saline Flush] Med 11/05/19 16:12 Active 10 ml FLUSH ASDIRECTED PRN Saline Lock Insert [OM.PC] Routine Oth 11/05/19 16:12 Ordered Resuscitation Status Routine Resus Stat 11/05/19 16:52 Ordered EKG 12 Lead [EK] Routine Ther 11/05/19 15:45 Ordered Medication Orders Sodium Chloride (Normal Saline) 1,000 mls @ 150 mls/hr IV ASDIRECTED KAYLA Sodium Chloride (Normal Saline) 100 mls @ 3 mls/sec IV ASDIRECTED KAYLA Iopamidol (Isovue-370 (76%)) 100 ml IV . DIRECTED KAYLA Sodium Chloride (Saline Flush) 10 ml FLUSH ASDIRECTED PRN PRN Reason: Keep Vein Open Last Admin: 11/05/19 16:25 Dose: 10 ml Assessment/Plan Comment:: ASSESSMENT AND PLAN COPD EXACERBATION-specific cause of exacerbation not apparent. No findings or symptoms consistent with underlying infection. No evidence of significant congestive heart failure or pulmonary edema. Chest x-ray did appear to be abnormal, CT scan of the chest shows no acute abnormalities. BNP and d-dimer within acceptable range. -Hold antibiotic therapy -IV Solu-Medrol -Supplemental oxygen as needed -Nebulized albuterol and DuoNebs CORONARY ARTERY DISEASE-currently asymptomatic, troponin within normal range. -Continue outpatient medical therapy TYPE 2 DIABETES MELLITUS -Continue outpatient long-acting insulin -4 times daily glucometers -Low-dose sliding scale Humalog MAINTENANCE ISSUES -DVT prophylaxis; Lovenox 40 mg subcu daily -GI prophylaxis; not indicated -Robin catheter; not indicated -Nutrition; consistent carb diet -Nicotine dependence; not required CODE STATUS-full code ADMISSION STATUS-patient will be admitted to inpatient status, expect at least a 2 night hospital stay for evaluation and management of problems as outlined above. At the time of this admission I do not reasonably expected evaluation and management of this problem will require more than a 96 hour hospital stay. DISPOSITION-anticipate discharge to home after the hospital stay. PRIMARY CARE PROVIDER-Dr. Gloria - Mortality Measure Prognosis:: Good
[2019-11-05] MEDS ORDERED: Ondansetron 4 MG/2 ML SDV IV PRN (17:25)
[2019-11-05] MEDS ORDERED: Acetaminophen 325 MG Tab PO PRN (17:25)
[2019-11-05] MEDS ORDERED: Polyethylene Glycol 3350 Powder 17 GM Packet PO PRN (17:25)
[2019-11-05] MEDS ORDERED: Glucose Gel 15 GM in 37.5 GM Tube PO PRN (17:25)
[2019-11-05] MEDS ORDERED: 50% Dextrose in Water 50 ML Syringe IV PRN (17:25)
--- NOTE | 2019-11-05 17:40 | CRLCT ---
INDICATION: Dyspnea. Abnormal chest radiograph. CT CHEST WITHOUT CONTRAST TECHNIQUE: Multidetector CT imaging was performed through the chest without intravenous contrast administration. Coronal and sagittal reconstructions were generated. COMPARISON: 11/05/2019 chest radiograph and 06/02/[address] FINDINGS: Lungs and airways: Areas of linear scarring in the right lung appear unchanged compared to the previous exam. Nodular opacity in the inferior lingula on images 48-55 of series 3 appears stable compared to the prior exam and likely represents chronic rounded atelectasis. No acute pulmonary consolidation or suspicious nodule identified. Central airways are patent. Pleura and pleural spaces: Unchanged bilateral pleural calcifications and foci of pleural thickening, possibly reflecting prior asbestos exposure. No pleural effusions or pneumothorax. Heart and mediastinum: Normal heart size. No significant pericardial effusion. A few scattered upper normal sized mediastinal lymph nodes. No pathologically enlarged mediastinal lymph nodes identified. Vascular structures: Normal caliber thoracic aorta. Moderate aortic and coronary artery atherosclerotic calcifications. Chest wall and axillae: No mass or axillary lymphadenopathy. Osseous structures: Spinal degenerative changes. No acute fractures identified. Upper abdomen: Unremarkable. IMPRESSION: 1. No acute intrathoracic abnormality identified. 2. Unchanged areas of linear scarring in the right lung and stable nodular opacity in the left lingula which likely represents chronic rounded atelectasis. Three nonacute additional findings as detailed above. RACHEL GONSALES MD [facility] Dictated by Bry Gonsales MD @ 11/05/2019 5:38:32 PM Dictated by: Bry Gonsales MD @ 11/05/2019 17:38:44 (Electronically Signed)
[2019-11-05] MEDS: Insulin Lispro 100 Unit/ML 3 ML KwikPen SUBCUT SCH ×2 (18:08→21:01)
[2019-11-05] MEDS: metFORMIN 500 MG Tab PO SCH (18:08)
[2019-11-05] MEDS: Albuterol 0.083% 2.5 MG/3 ML Neb Soln NEB PRN (18:39)
[2019-11-05] MEDS ORDERED: glipiZIDE 5 MG Tab.ER PO SCH (21:00)
[2019-11-05] MEDS: Albuterol/Ipratropium 3.0-0.5 MG/3 ML Neb Soln NEB SCH (21:01)
[2019-11-05] MEDS: methylPREDNISolone Sodium Succinate 40 MG/1 ML SDV IVPUSH SCH (21:01)
[2019-11-05] MEDS: Zolpidem 5 MG Tab PO SCH (21:02)
[2019-11-05] MEDS: Enoxaparin 40 MG/0.4 ML Syringe SUBCUT SCH (21:02)
[2019-11-05] MEDS: traZODone 50 MG Tab PO SCH (21:02)
[2019-11-05] MEDS: Insulin Glargine,Human Rec. Analog 100 Units/ML 3 ML Pen SUBCUT SCH (21:04)
[2019-11-05] MEDS: glipiZIDE 5 MG Tab PO SCH (21:06)
[2019-11-05] MEDS: Pramipexole 0.5 MG Tab PO SCH (21:06)
[2019-11-05] MEDS: atorvaSTATin 20 MG Tab PO SCH (21:06)
[2019-11-05] MEDS ORDERED: Cyclobenzaprine 10 MG Tab PO PRN (21:19)
[2019-11-06] MEDS: Albuterol 0.083% 2.5 MG/3 ML Neb Soln NEB PRN (01:26)
[2019-11-06] MEDS: methylPREDNISolone Sodium Succinate 40 MG/1 ML SDV IVPUSH SCH ×2 (03:27→15:22)
[2019-11-06] MEDS: Albuterol/Ipratropium 3.0-0.5 MG/3 ML Neb Soln NEB SCH ×4 (07:41→21:02)
[2019-11-06] MEDS: Fluticasone Propionate Nasal Spray 16 GM Bottle NASBOTH SCH (08:04)
[2019-11-06] MEDS: Aspirin 81 MG Tab.EC PO SCH (08:05)
[2019-11-06] MEDS: Montelukast 10 MG Tab PO SCH (08:05)
[2019-11-06] MEDS: Escitalopram 10 MG Tab PO SCH (08:05)
[2019-11-06] MEDS: Lisinopril 2.5 MG Tab PO SCH (08:05)
[2019-11-06] MEDS: glipiZIDE 5 MG Tab PO SCH ×2 (08:05→21:04)
[2019-11-06] MEDS: Tamsulosin 0.4 MG Cap.ER PO SCH (08:05)
[2019-11-06] MEDS: metFORMIN 500 MG Tab PO SCH ×2 (08:05→17:06)
[2019-11-06] MEDS: Isosorbide Mononitrate 30 MG Tab.ER PO SCH (08:05)
[2019-11-06] MEDS: Furosemide 20 MG Tab PO SCH (08:05)
[2019-11-06] MEDS: Tolterodine 2 MG Tab PO SCH ×2 (08:06→21:01)
[2019-11-06] MEDS: Hydrochlorothiazide 25 MG Tab PO SCH (08:06)
[2019-11-06] MEDS: Insulin Lispro 100 Unit/ML 3 ML KwikPen SUBCUT SCH ×4 (08:09→20:50)
[2019-11-06] MEDS: Insulin Glargine,Human Rec. Analog 100 Units/ML 3 ML Pen SUBCUT SCH ×2 (08:09→20:50)
--- NOTE | 2019-11-06 08:46 | PCM.PN ---
- General Info Date of Service: 11/06/19 Subjective Update: Mr. Corbin has improved since admission with less shortness of breath. No longer requiring supplemental oxygen at rest, does desaturate with fairly minimal exertion. Vital signs have been stable and he has remained afebrile. Functional Status: Reports: Pain Controlled, Tolerating Diet, Urinating - Review of Systems General: Reports: Weakness. Denies: Fever, Chills Pulmonary: Reports: Shortness of Breath, Wheezing. Denies: Pleuritic Chest Pain , Cough, Sputum, Hemoptysis Cardiovascular: Reports: Dyspnea on Exertion, Edema. Denies: Chest Pain, Palpitations, Orthopnea, PND Gastrointestinal: Reports: No Symptoms - Patient Data Vitals - Most Recent: Last Vital Signs Temp 96 F L 11/06/19 07:39 Pulse 102 H 11/06/19 07:43 Resp 18 11/06/19 07:39 BP 180/93 H 11/06/19 08:05 Pulse Ox 96 11/06/19 07:43 Weight - Most Recent: 259 lb I&O - Last 24 Hours: Intake & Output 11/05/19 11/06/19 11/06/19 22:59 06:59 14:59 Intake Total 240 240 Output Total 600 350 125 Balance -360 -110 -125 Lab Results Last 24 Hours: Laboratory Results - last 24 hr 11/05/19 11/05/19 11/05/19 Range/Units 15:36 15:36 15:45 WBC 9.2 (4.5-11.0) K/uL RBC 4.44 (4.30-5.90) M/uL Hgb 12.7 (12.0-15.0) g/dL Hct 40.5 (40.0-54.0) % MCV 91 (80-98) fL MCH 29 (27-31) pg MCHC 31 L (32-36) % Plt Count 183 (150-400) K/uL Neut % (Auto) 80 H (36-66) % Lymph % (Auto) 12 L (24-44) % [place] % (Auto) 6 (2-6) % Eos % (Auto) 1 L (2-4) % Baso % (Auto) 0 (0-1) % D-Dimer, Quantitative (0.0-400.0) ng/mL Puncture Site ABG pH (7.350-7.450) ABG pCO2 (35.0-42.0) mmHg ABG pO2 (75.0-100.0) mmHg ABG HCO3 (22.0-26.0) mmol/L ABG Total CO2 (23.0-27.0) mmol/L ABG O2 Saturation (95.0-98.0) % ABG O2 Content (15.0-23.0) %vol ABG Base Excess mm/L ABG Hemoglobin (13.5-18.0) g/dL ABG Oxyhemoglobin % ABG Carboxyhemoglobin (0.0-1.6) % ABG Methemoglobin % Antoine Test O2 Delivery Device Sodium 142 (140-148) mmol/L Potassium 3.9 (3.6-5.2) mmol/L Chloride 104 (100-108) mmol/L Carbon Dioxide 26 (21-32) mmol/L Anion Gap 12.4 (5.0-14.0) mmol/L BUN 12 (7-18) mg/dL Creatinine 1.3 (0.8-1.3) mg/dL Est Cr Clr Drug Dosing 38.30 mL/min Estimated GFR (MDRD) 54 L (>60) Glucose 111 H (74-106) mg/dL Calcium 8.2 L (8.5-10.1) mg/dL Total Bilirubin 0.3 (0.2-1.0) mg/dL AST 15 (15-37) U/L ALT 29 (12-78) U/L Alkaline Phosphatase 127 H (46-116) U/L Troponin I (0.000-0.056) ng/mL C-Reactive Protein (0.0-0.3) mg/dL NT-Pro-B Natriuret Pep 261 (5-450) pg/mL Total Protein 6.6 (6.4-8.2) g/dL Albumin 3.2 L (3.4-5.0) g/dL Globulin 3.4 (2.3-3.5) g/dL Albumin/Globulin Ratio 0.9 L (1.2-2.2) Urine Color (YELLOW) Urine Appearance (CLEAR) Urine pH (5.0-8.0) Ur Specific [place] (1.008-1.030) Urine Protein (NEGATIVE) mg/dL Urine Glucose (UA) (NEGATIVE) mg/dL Urine Ketones (NEGATIVE) mg/dL Urine Occult Blood (NEGATIVE) Urine Nitrite (NEGATIVE) Urine Bilirubin (NEGATIVE) Urine Urobilinogen (0.2-1.0) EU/dL Ur Leukocyte Esterase (NEGATIVE) Urine RBC (0-5) Urine WBC (0-5) Ur Epithelial Cells Amorphous Sediment Urine Bacteria Urine Mucus 11/05/19 11/05/19 11/05/19 Range/Units 15:46 15:47 16:38 WBC (4.5-11.0) K/uL RBC (4.30-5.90) M/uL Hgb (12.0-15.0) g/dL Hct (40.0-54.0) % MCV (80-98) fL MCH (27-31) pg MCHC (32-36) % Plt Count (150-400) K/uL Neut % (Auto) (36-66) % Lymph % (Auto) (24-44) % [place] % (Auto) (2-6) % Eos % (Auto) (2-4) % Baso % (Auto) (0-1) % D-Dimer, Quantitative (0.0-400.0) ng/mL Puncture Site Rt radial ABG pH 7.445 (7.350-7.450) ABG pCO2 36.3 (35.0-42.0) mmHg ABG pO2 69.7 L (75.0-100.0) mmHg ABG HCO3 24.5 (22.0-26.0) mmol/L ABG Total CO2 22.0 L (23.0-27.0) mmol/L ABG O2 Saturation 93.5 L (95.0-98.0) % ABG O2 Content 15.7 (15.0-23.0) %vol ABG Base Excess 1.1 mm/L ABG Hemoglobin 12.1 L (13.5-18.0) g/dL ABG Oxyhemoglobin 91.8 % ABG Carboxyhemoglobin 1.1 (0.0-1.6) % ABG Methemoglobin 0.7 % Antoine Test Passed O2 Delivery Device Nasal cannula Sodium (140-148) mmol/L Potassium (3.6-5.2) mmol/L Chloride (100-108) mmol/L Carbon Dioxide (21-32) mmol/L Anion Gap (5.0-14.0) mmol/L BUN (7-18) mg/dL Creatinine (0.8-1.3) mg/dL Est Cr Clr Drug Dosing mL/min Estimated GFR (MDRD) (>60) Glucose (74-106) mg/dL Calcium (8.5-10.1) mg/dL Total Bilirubin (0.2-1.0) mg/dL AST (15-37) U/L ALT (12-78) U/L Alkaline Phosphatase (46-116) U/L Troponin I < 0.017 (0.000-0.056) ng/mL C-Reactive Protein (0.0-0.3) mg/dL NT-Pro-B Natriuret Pep (5-450) pg/mL Total Protein (6.4-8.2) g/dL Albumin (3.4-5.0) g/dL Globulin (2.3-3.5) g/dL Albumin/Globulin Ratio (1.2-2.2) Urine Color Yellow (YELLOW) Urine Appearance Clear (CLEAR) Urine pH 5.5 (5.0-8.0) Ur Specific [place] 1.020 (1.008-1.030) Urine Protein 30 H (NEGATIVE) mg/dL Urine Glucose (UA) Negative (NEGATIVE) mg/dL Urine Ketones Negative (NEGATIVE) mg/dL Urine Occult Blood Negative (NEGATIVE) Urine Nitrite Negative (NEGATIVE) Urine Bilirubin Negative (NEGATIVE) Urine Urobilinogen 0.2 (0.2-1.0) EU/dL Ur Leukocyte Esterase Small H (NEGATIVE) Urine RBC Not seen (0-5) Urine WBC 0-5 (0-5) Ur Epithelial Cells Not seen Amorphous Sediment Few Urine Bacteria Not seen Urine Mucus Not seen 11/05/19 11/05/19 11/06/19 Range/Units 16:39 16:55 04:40 WBC 9.4 (4.5-11.0) K/uL RBC 4.28 L (4.30-5.90) M/uL Hgb 12.3 (12.0-15.0) g/dL Hct 39.1 L (40.0-54.0) % MCV 91 (80-98) fL MCH 29 (27-31) pg MCHC 32 (32-36) % Plt Count 222 (150-400) K/uL Neut % (Auto) 95 H (36-66) % Lymph % (Auto) 4 L (24-44) % [place] % (Auto) 1 L (2-6) % Eos % (Auto) 0 L (2-4) % Baso % (Auto) 0 (0-1) % D-Dimer, Quantitative 514 H (0.0-400.0) ng/mL Puncture Site ABG pH (7.350-7.450) ABG pCO2 (35.0-42.0) mmHg ABG pO2 (75.0-100.0) mmHg ABG HCO3 (22.0-26.0) mmol/L ABG Total CO2 (23.0-27.0) mmol/L ABG O2 Saturation (95.0-98.0) % ABG O2 Content (15.0-23.0) %vol ABG Base Excess mm/L ABG Hemoglobin (13.5-18.0) g/dL ABG Oxyhemoglobin % ABG Carboxyhemoglobin (0.0-1.6) % ABG Methemoglobin % Antoine Test O2 Delivery Device Sodium (140-148) mmol/L Potassium (3.6-5.2) mmol/L Chloride (100-108) mmol/L Carbon Dioxide (21-32) mmol/L Anion Gap (5.0-14.0) mmol/L BUN (7-18) mg/dL Creatinine (0.8-1.3) mg/dL Est Cr Clr Drug Dosing mL/min Estimated GFR (MDRD) (>60) Glucose (74-106) mg/dL Calcium (8.5-10.1) mg/dL Total Bilirubin (0.2-1.0) mg/dL AST (15-37) U/L ALT (12-78) U/L Alkaline Phosphatase (46-116) U/L Troponin I (0.000-0.056) ng/mL C-Reactive Protein 0.40 H (0.0-0.3) mg/dL NT-Pro-B Natriuret Pep (5-450) pg/mL Total Protein (6.4-8.2) g/dL Albumin (3.4-5.0) g/dL Globulin (2.3-3.5) g/dL Albumin/Globulin Ratio (1.2-2.2) Urine Color (YELLOW) Urine Appearance (CLEAR) Urine pH (5.0-8.0) Ur Specific [place] (1.008-1.030) Urine Protein (NEGATIVE) mg/dL Urine Glucose (UA) (NEGATIVE) mg/dL Urine Ketones (NEGATIVE) mg/dL Urine Occult Blood (NEGATIVE) Urine Nitrite (NEGATIVE) Urine Bilirubin (NEGATIVE) Urine Urobilinogen (0.2-1.0) EU/dL Ur Leukocyte Esterase (NEGATIVE) Urine RBC (0-5) Urine WBC (0-5) Ur Epithelial Cells Amorphous Sediment Urine Bacteria Urine Mucus 11/06/19 Range/Units 04:40 WBC (4.5-11.0) K/uL RBC (4.30-5.90) M/uL Hgb (12.0-15.0) g/dL Hct (40.0-54.0) % MCV (80-98) fL MCH (27-31) pg MCHC (32-36) % Plt Count (150-400) K/uL Neut % (Auto) (36-66) % Lymph % (Auto) (24-44) % [place] % (Auto) (2-6) % Eos % (Auto) (2-4) % Baso % (Auto) (0-1) % D-Dimer, Quantitative (0.0-400.0) ng/mL Puncture Site ABG pH (7.350-7.450) ABG pCO2 (35.0-42.0) mmHg ABG pO2 (75.0-100.0) mmHg ABG HCO3 (22.0-26.0) mmol/L ABG Total CO2 (23.0-27.0) mmol/L ABG O2 Saturation (95.0-98.0) % ABG O2 Content (15.0-23.0) %vol ABG Base Excess mm/L ABG Hemoglobin (13.5-18.0) g/dL ABG Oxyhemoglobin % ABG Carboxyhemoglobin (0.0-1.6) % ABG Methemoglobin % Antoine Test O2 Delivery Device Sodium 140 (140-148) mmol/L Potassium 4.0 (3.6-5.2) mmol/L Chloride 104 (100-108) mmol/L Carbon Dioxide 25 (21-32) mmol/L Anion Gap 10.7 (5.0-14.0) mmol/L BUN 18 (7-18) mg/dL Creatinine 1.2 (0.8-1.3) mg/dL Est Cr Clr Drug Dosing 41.49 mL/min Estimated GFR (MDRD) 59 L (>60) Glucose 218 H (74-106) mg/dL Calcium 8.4 L (8.5-10.1) mg/dL Total Bilirubin (0.2-1.0) mg/dL AST (15-37) U/L ALT (12-78) U/L Alkaline Phosphatase (46-116) U/L Troponin I (0.000-0.056) ng/mL C-Reactive Protein (0.0-0.3) mg/dL NT-Pro-B Natriuret Pep (5-450) pg/mL Total Protein (6.4-8.2) g/dL Albumin (3.4-5.0) g/dL Globulin (2.3-3.5) g/dL Albumin/Globulin Ratio (1.2-2.2) Urine Color (YELLOW) Urine Appearance (CLEAR) Urine pH (5.0-8.0) Ur Specific [place] (1.008-1.030) Urine Protein (NEGATIVE) mg/dL Urine Glucose (UA) (NEGATIVE) mg/dL Urine Ketones (NEGATIVE) mg/dL Urine Occult Blood (NEGATIVE) Urine Nitrite (NEGATIVE) Urine Bilirubin (NEGATIVE) Urine Urobilinogen (0.2-1.0) EU/dL Ur Leukocyte Esterase (NEGATIVE) Urine RBC (0-5) Urine WBC (0-5) Ur Epithelial Cells Amorphous Sediment Urine Bacteria Urine Mucus Med Orders - Current: Current Medications Acetaminophen (Tylenol) 650 mg PO Q4H PRN PRN Reason: Pain (Mild 1-3)/fever Albuterol (Proventil Neb Soln) 2.5 mg NEB Q4H PRN PRN Reason: Shortness Of Breath/wheezing Last Admin: 11/06/19 01:26 Dose: 2.5 mg Albuterol/Ipratropium (Duoneb 3.0-0.5 Mg/3 Ml) 3 ml NEB QIDRT [facility] Last Admin: 11/06/19 07:41 Dose: 3 ml Aspirin (Halfprin) 81 mg PO DAILY [facility] Last Admin: 11/06/19 08:05 Dose: 81 mg Atorvastatin Calcium (Lipitor) 20 mg PO BEDTIME [facility] Last Admin: 11/05/19 21:06 Dose: 20 mg Cyclobenzaprine HCl (Flexeril) 10 mg PO BEDTIME PRN PRN Reason: Muscle Spasm Last Admin: 11/05/19 21:33 Dose: 10 mg Dextrose (Glutose 15) 15 gm PO ONETIME PRN PRN Reason: Hypoglycemia Dextrose/Water (Dextrose 50% In Water) 50 ml IV ONETIME PRN PRN Reason: Hypoglycemia Enoxaparin Sodium (Lovenox) 40 mg SUBCUT BEDTIME [facility] Last Admin: 11/05/19 21:02 Dose: 40 mg Escitalopram Oxalate (Lexapro) 10 mg PO DAILY [facility] Last Admin: 11/06/19 08:05 Dose: 10 mg Fluticasone Propionate (Flonase) 0 gm NASBOTH DAILY [facility] Last Admin: 11/06/19 08:04 Dose: 2 sprays Furosemide (Lasix) 20 mg PO DAILY [facility] Last Admin: 11/06/19 08:05 Dose: 20 mg Glipizide (Glucotrol) 10 mg PO BID [facility] Last Admin: 11/06/19 08:05 Dose: 10 mg Hydrochlorothiazide (Hydrochlorothiazide) 25 mg PO DAILY [facility] Last Admin: 11/06/19 08:06 Dose: 25 mg Insulin Glargine (Lantus Solostar) 14 units SUBCUT BID [facility] Last Admin: 11/06/19 08:09 Dose: 14 unit Insulin Human Lispro (Humalog) 0 unit SUBCUT QIDACANDBED [facility]; Protocol Last Admin: 11/06/19 08:09 Dose: 2 unit Isosorbide Mononitrate (Imdur) 30 mg PO DAILY [facility] Last Admin: 11/06/19 08:05 Dose: 30 mg Lisinopril (Prinivil) 2.5 mg PO DAILY [facility] Last Admin: 11/06/19 08:05 Dose: 2.5 mg Metformin HCl (Glucophage) 1,000 mg PO BIDM [facility] Last Admin: 11/06/19 08:05 Dose: 1,000 mg Methylprednisolone Sodium Succinate (Solu-Medrol) 40 mg IVPUSH Q12H [facility] Montelukast Sodium (Singulair) 10 mg PO DAILY [facility] Last Admin: 11/06/19 08:05 Dose: 10 mg Ondansetron HCl (Zofran) 4 mg IV Q4H PRN PRN Reason: Nausea/Vomiting Polyethylene Glycol (Miralax) 17 gm PO DAILY PRN PRN Reason: Constipation Pramipexole Dihydrochloride (Mirapex) 2 mg PO BEDTIME [facility] Last Admin: 11/05/19 21:06 Dose: 2 mg Sodium Chloride (Saline Flush) 10 ml FLUSH ASDIRECTED PRN PRN Reason: Keep Vein Open Tamsulosin HCl (Flomax) 0.4 mg PO DAILY [facility] Last Admin: 11/06/19 08:05 Dose: 0.4 mg Tolterodine Tartrate (Detrol) 2 mg PO BID [facility] Last Admin: 11/06/19 08:06 Dose: 2 mg Trazodone HCl (Trazodone) 150 mg PO BEDTIME [facility] Last Admin: 11/05/19 21:02 Dose: 150 mg Zolpidem Tartrate (Ambien) 10 mg PO BEDTIME [facility] Last Admin: 11/05/19 21:02 Dose: 10 mg Discontinued Medications Albuterol (Proventil Neb Soln) 2.5 mg NEB ONETIME ONE Stop: 11/05/19 15:43 Last Admin: 11/05/19 15:45 Dose: 2.5 mg Albuterol (Proventil Neb Soln) Confirm Administered Dose 2.5 mg .ROUTE .STK-MED ONE Stop: 11/05/19 15:42 Last Admin: 11/05/19 15:55 Dose: Not Given Furosemide (Lasix) 60 mg IVPUSH ONETIME ONE Stop: 11/05/19 16:38 Last Admin: 11/05/19 19:41 Dose: Not Given Sodium Chloride (Normal Saline) 1,000 mls @ 150 mls/hr IV ASDIRECTED KAYLA Sodium Chloride (Normal Saline) 100 mls @ 3 mls/sec IV ASDIRECTED KAYLA Iopamidol (Isovue-370 (76%)) 100 ml IV . DIRECTED [facility] Methylprednisolone Sodium Succinate (Solu-Medrol) 125 mg IVPUSH ONETIME ONE Stop: 11/05/19 16:14 Last Admin: 11/05/19 16:25 Dose: 125 mg Methylprednisolone Sodium Succinate (Solu-Medrol) 40 mg IVPUSH Q6H [facility] Last Admin: 11/06/19 03:27 Dose: 40 mg Sodium Chloride (Saline Flush) 10 ml FLUSH ASDIRECTED PRN PRN Reason: Keep Vein Open Last Admin: 11/05/19 16:25 Dose: 10 ml - Exam Quality Assessment: DVT Prophylaxis General: Alert, Oriented, Cooperative, Mild Distress Lungs: Decreased Breath Sounds, Wheezing. No: Rales, Rhonchi Cardiovascular: Regular Rate, Regular Rhythm, No Murmurs GI/Abdominal Exam: Soft, Non-Tender, No Organomegaly, No Distention Extremities: Non-Tender, Pedal Edema Sepsis Event Note - Evaluation Sepsis Screening Result: No Definite Risk - Focused Exam Vital Signs: Vital Signs Temp Pulse Resp BP BP Pulse Ox Pulse Ox 11/06/19 08:05 180/93 H 11/06/19 07:43 102 H 96 11/06/19 07:39 96 F L 99 18 180/93 H 98 11/06/19 03:00 97.0 F 92 20 143/87 H 94 L 11/05/19 23:00 97.2 F 105 H 20 160/74 H 95 Date Exam was Performed: 11/06/19 Time Exam was Performed: 08:44 - Problem List Review Problem List Initiated/Reviewed/Updated: Yes - My Orders Last 24 Hours: My Active Orders 11/05/19 16:52 Resuscitation Status Routine 11/05/19 17:25 Patient Status [ADT] Routine Ambulate [RC] QID Blood Glucose Check, Bedside [RC] QIDACANDBED Diabetes Education [RC] Click to Edit Height and Weight [RC] DAILY Intake and Output [RC] QSHIFT Notify Provider Vital Signs [RC] ASDIRECTED Notify Provider [RC] PRN Oxygen Therapy [RC] PRN RT Aerosol Therapy [RC] ASDIRECTED Up With Assistance [RC] ASDIRECTED Up to Chair [RC] QID Vital Signs [RC] Q4H Acetaminophen [Tylenol] 650 mg PO Q4H PRN Albuterol [Proventil Neb Soln] 2.5 mg NEB Q4H PRN Dextrose 50% in Water 50 ml IV ONETIME PRN Dextrose [Glutose 15] 15 gm PO ONETIME PRN Insulin Lispro [HumaLOG] See Protocol SUBCUT QIDACANDBED Ondansetron [Zofran] 4 mg IV Q4H PRN Sodium Chloride 0.9% [Saline Flush] 10 ml FLUSH ASDIRECTED PRN metFORMIN [Glucophage] 1,000 mg PO BIDM polyethylene glycoL 3350 [MiraLAX] 17 gm PO DAILY PRN Saline Lock Insert [OM.PC] Routine 11/05/19 21:00 Albuterol/Ipratropium [DuoNeb 3.0-0.5 MG/3 ML] 3 ml NEB QIDRT Enoxaparin [Lovenox] 40 mg SUBCUT BEDTIME Insulin Glarg,Human.Rec.Analog [LantUS Solostar] 14 units SUBCUT BID Pramipexole [Mirapex] 2 mg PO BEDTIME Zolpidem [Ambien] 10 mg PO BEDTIME atorvaSTATin [Lipitor] 20 mg PO BEDTIME glipiZIDE [Glucotrol] 10 mg PO BID traZODone 150 mg PO BEDTIME 11/05/19 21:19 Cyclobenzaprine [Flexeril] 10 mg PO BEDTIME PRN 11/05/19 Lunch Consistent Carbohydrate Diet [DIET] 11/06/19 08:45 methylPREDNISolone Sod Succ [Solu-MEDROL] 40 mg IVPUSH Q12H 11/06/19 09:00 Aspirin [Halfprin] 81 mg PO DAILY Escitalopram [Lexapro] 10 mg PO DAILY Fluticasone Propionate [Flonase] 0 gm NASBOTH DAILY Furosemide [Lasix] 20 mg PO DAILY Isosorbide Mononitrate [Imdur] 30 mg PO DAILY Montelukast [Singulair] 10 mg PO DAILY Tamsulosin [Flomax] 0.4 mg PO DAILY Tolterodine [DetroL] 2 mg PO BID hydroCHLOROthiazide 25 mg PO DAILY lisinopriL [Prinivil] 2.5 mg PO DAILY 11/07/19 07:30 GLUCOSE POC LAB TO COLLECT [POC] QIDACANDBED 11/07/19 11:30 GLUCOSE POC LAB TO COLLECT [POC] QIDACANDBED 11/07/19 16:30 GLUCOSE POC LAB TO COLLECT [POC] QIDACANDBED 11/07/19 21:00 GLUCOSE POC LAB TO COLLECT [POC] QIDACANDBED 11/08/19 07:30 GLUCOSE POC LAB TO COLLECT [POC] QIDACANDBED 11/08/19 11:30 GLUCOSE POC LAB TO COLLECT [POC] QIDACANDBED 11/08/19 16:30 GLUCOSE POC LAB TO COLLECT [POC] QIDACANDBED 11/08/19 21:00 GLUCOSE POC LAB TO COLLECT [POC] QIDACANDBED 11/09/19 07:30 GLUCOSE POC LAB TO COLLECT [POC] QIDACANDBED 11/09/19 11:30 GLUCOSE POC LAB TO COLLECT [POC] QIDACANDBED 11/09/19 16:30 GLUCOSE POC LAB TO COLLECT [POC] QIDACANDBED 11/09/19 21:00 GLUCOSE POC LAB TO COLLECT [POC] QIDACANDBED 11/10/19 07:30 GLUCOSE POC LAB TO COLLECT [POC] QIDACANDBED 11/10/19 11:30 GLUCOSE POC LAB TO COLLECT [POC] QIDACANDBED 11/10/19 16:30 GLUCOSE POC LAB TO COLLECT [POC] QIDACANDBED - Plan Plan:: ASSESSMENT AND PLAN COPD EXACERBATION-specific cause of exacerbation not apparent. No findings or symptoms consistent with underlying infection. No evidence of significant congestive heart failure or pulmonary edema. Chest x-ray did appear to be abnormal, CT scan of the chest shows no acute abnormalities. BNP and d-dimer within acceptable range. Improved from admission with less shortness of breath and decreased wheezing on examination. -Hold antibiotic therapy -IV Solu-Medrol -Supplemental oxygen as needed -Nebulized albuterol and DuoNebs CORONARY ARTERY DISEASE-currently asymptomatic, troponin within normal range. -Continue outpatient medical therapy TYPE 2 DIABETES MELLITUS -Continue outpatient long-acting insulin -4 times daily glucometers -Low-dose sliding scale Humalog MAINTENANCE ISSUES -DVT prophylaxis; Lovenox 40 mg subcu daily -GI prophylaxis; not indicated -Robin catheter; not indicated -Nutrition; consistent carb diet -Nicotine dependence; not required CODE STATUS-full code ADMISSION STATUS-patient will be admitted to inpatient status, expect at least a 2 night hospital stay for evaluation and management of problems as outlined above. At the time of this admission I do not reasonably expected evaluation and management of this problem will require more than a 96 hour hospital stay. DISPOSITION-anticipate discharge to home after the hospital stay. PRIMARY CARE PROVIDER-Dr. Gloria
[2019-11-06] MEDS: Pramipexole 0.5 MG Tab PO SCH (21:00)
[2019-11-06] MEDS: traZODone 50 MG Tab PO SCH (21:01)
[2019-11-06] MEDS: Zolpidem 5 MG Tab PO SCH (21:01)
[2019-11-06] MEDS: Enoxaparin 40 MG/0.4 ML Syringe SUBCUT SCH (21:02)
[2019-11-06] MEDS: atorvaSTATin 20 MG Tab PO SCH (21:02)
[2019-11-07] MEDS: methylPREDNISolone Sodium Succinate 40 MG/1 ML SDV IVPUSH SCH (03:32)
[2019-11-07] MEDS: Albuterol/Ipratropium 3.0-0.5 MG/3 ML Neb Soln NEB SCH ×2 (07:19→10:50)
[2019-11-07] MEDS: Insulin Glargine,Human Rec. Analog 100 Units/ML 3 ML Pen SUBCUT SCH ×2 (07:39→10:06)
[2019-11-07] MEDS: Insulin Lispro 100 Unit/ML 3 ML KwikPen SUBCUT SCH (07:39)
[2019-11-07] MEDS: Furosemide 20 MG Tab PO SCH (08:00)
[2019-11-07] MEDS: Tolterodine 2 MG Tab PO SCH (08:00)
[2019-11-07] MEDS: Isosorbide Mononitrate 30 MG Tab.ER PO SCH (08:00)
[2019-11-07] MEDS: metFORMIN 500 MG Tab PO SCH (08:00)
[2019-11-07] MEDS: Fluticasone Propionate Nasal Spray 16 GM Bottle NASBOTH SCH (08:01)
[2019-11-07] MEDS: Aspirin 81 MG Tab.EC PO SCH (08:01)
[2019-11-07] MEDS: Hydrochlorothiazide 25 MG Tab PO SCH (08:01)
[2019-11-07] MEDS: Escitalopram 10 MG Tab PO SCH (08:01)
[2019-11-07] MEDS: Tamsulosin 0.4 MG Cap.ER PO SCH (08:01)
[2019-11-07] MEDS: Montelukast 10 MG Tab PO SCH (08:01)
[2019-11-07] MEDS: glipiZIDE 5 MG Tab PO SCH (08:01)
--- NOTE | 2019-11-07 09:29 | PCM.DCSUM1 ---
Discharge Summary - Hospital Course Brief History: Mr. Corbin is a 79-year-old gentleman who was admitted through the emergency department with weakness and shortness of breath secondary to COPD exacerbation. - Discharge Data Discharge Date: 11/07/19 Discharge Disposition: Home, Self-Care 01 Condition: Fair - Referral to Home Health Primary Care Physician: PCP None - Discharge Diagnosis/Problem(s) (1) COPD with exacerbation SNOMED Code(s): 155058603 ICD Code: J44.1 - CHRONIC OBSTRUCTIVE PULMONARY DISEASE W (ACUTE) EXACERBATION Status: Acute Current Visit: Yes (2) Hypoxia SNOMED Code(s): 522348024 ICD Code: R09.02 - HYPOXEMIA Status: Acute Current Visit: Yes (3) Type 2 diabetes mellitus SNOMED Code(s): 93045294 ICD Code: E11.9 - TYPE 2 DIABETES MELLITUS WITHOUT COMPLICATIONS Status: Acute Current Visit: Yes - Patient Summary/Data Hospital Course: Mr. Corbin is a 79-year-old gentleman who is admitted through the emergency department with shortness of breath secondary to COPD exacerbation. He has a known history of COPD, does not currently require oxygen at home. Over the last 3 weeks he has become progressively more short of breath to the point where he become short of breath with very minimal exertion. He has not had nocturnal dyspnea or significant shortness of breath at rest. He does have a known history of coronary artery disease but denies previous diagnosis of congestive heart failure. On evaluation in the emergency department BNP is within normal range. He was found to have peripheral edema which he reports has been worse recently. CT scan of the chest shows no new infiltrates, evidence of previous pleural disease and lung changes which are chronic. Admission he was started on scheduled and as needed nebulizer therapy as well as IV Solu-Medrol. Over the next few days of hospitalization he improved but was not yet back to baseline by the time of discharge. Oxygen saturation at rest remained within desired range. On the day of discharge he was walked on room air and did drop his oxygen saturation to 86% with fairly minimal activity. After this he was walked with supplemental oxygen and oxygen saturation remained within desired range with activity. No evidence of underlying infection identified during his hospital stay. Activity will be as tolerated and he will resume his usual diet. He will be discharged home with oxygen 2 L/min via nasal cannula. Follow-up appointment will be scheduled with his primary care provider within 1 month. - Patient Instructions Diet: Diabetic Diet Activity: As Tolerated Other/Special Instructions: Please schedule follow-up appointment with primary care provider within 1 week. Please arrange for home oxygen 2 L/min via nasal cannula. - Discharge Plan *PRESCRIPTION DRUG MONITORING PROGRAM REVIEWED*: Not Applicable *COPY OF PRESCRIPTION DRUG MONITORING REPORT IN PATIENT DONAVAN: Not Applicable Prescriptions/Med Rec: Albuterol [Proventil Neb Soln] 2.5 mg NEB Q4H PRN #60 neb PRN Reason: Shortness Of Breath/wheezing predniSONE 40 mg PO DAILY #6 tablet Home Medications: Home Meds Albuterol [Proventil Neb Soln] 1 ampule NEB Q4HRRT PRN 09/24/13 [History] Albuterol [Ventolin HFA] 2 puff INH Q4H PRN 09/24/13 [History] Cyclobenzaprine [Flexeril] 10 - 15 mg PO BEDTIME PRN 09/24/13 [History] Escitalopram [Lexapro] 10 mg PO DAILY 09/24/13 [History] Isosorbide Mononitrate [Imdur] 30 mg PO DAILY 09/24/13 [History] Lisinopril [Zestril] 2.5 mg PO DAILY 09/24/13 [History] Montelukast [Singulair] 10 mg PO DAILY 09/24/13 [History] Nitroglycerin [Nitrostat] 0.4 mg SL ASDIRECTED PRN 09/24/13 [History] Pramipexole [Mirapex] 2 mg PO BEDTIME 09/24/13 [History] Zolpidem Tartrate [Ambien Cr] 12.5 mg PO BEDTIME 09/24/13 [History] atorvaSTATin [Lipitor] 20 mg PO BEDTIME 09/24/13 [History] hydroCHLOROthiazide [Hydrochlorothiazide] 25 mg PO DAILY 09/24/13 [History] metFORMIN HCl [Glucophage] 1,000 mg PO BIDM 09/24/13 [History] traZODone HCl [Trazodone HCl] 150 mg PO BEDTIME 09/24/13 [History] Aspirin [Low Dose Aspirin EC] 81 mg PO DAILY 09/30/14 [History] Fluticasone Propionate [Flonase] 2 spray NS DAILY 09/30/14 [History] Triamcinolone Acetonide [Kenalog 0.1% Crm] 1 applic TOP BID 09/30/14 [History] Furosemide [Lasix] 20 mg PO DAILY 09/16/16 [History] Exenatide Microspheres [Bydureon Pen] 2 mg SQ WEEKLY 09/18/16 [History] Insulin Glargine,Hum.Rec.Anlog [Lantus Solostar] 14 units SQ Q12H 11/05/19 [ History] Tamsulosin HCl [Flomax] 0.4 mg PO DAILY 11/05/19 [History] Tolterodine Tartrate [Detrol LA] 4 mg PO DAILY 11/05/19 [History] glipiZIDE [Glucotrol] 10 mg PO BID 11/05/19 [History] predniSONE [Prednisone] 5 mg PO DAILY 11/05/19 [History] Albuterol [Proventil Neb Soln] 2.5 mg NEB Q4H PRN #60 neb 11/07/19 [Rx] predniSONE 40 mg PO DAILY #6 tablet 11/07/19 [Rx] - Discharge Summary/Plan Comment DC Time >30 min.: No - Patient Data Vitals - Most Recent: Last Vital Signs Temp 96 F L 11/07/19 07:30 Pulse 98 11/07/19 07:30 Resp 16 11/07/19 07:30 BP 163/83 H 11/07/19 08:00 Pulse Ox 94 L 11/07/19 07:30 Weight - Most Recent: 259 lb I&O - Last 24 hours: Intake & Output 11/06/19 11/07/19 11/07/19 22:59 06:59 14:59 Intake Total 150 Output Total 200 Balance -50 Med Orders - Current: Current Medications Acetaminophen (Tylenol) 650 mg PO Q4H PRN PRN Reason: Pain (Mild 1-3)/fever Albuterol (Proventil Neb Soln) 2.5 mg NEB Q4H PRN PRN Reason: Shortness Of Breath/wheezing Last Admin: 11/06/19 01:26 Dose: 2.5 mg Albuterol/Ipratropium (Duoneb 3.0-0.5 Mg/3 Ml) 3 ml NEB QIDRT KAYLA Last Admin: 11/07/19 07:19 Dose: 3 ml Aspirin (Halfprin) 81 mg PO DAILY [facility] Last Admin: 11/07/19 08:01 Dose: 81 mg Atorvastatin Calcium (Lipitor) 20 mg PO BEDTIME [facility] Last Admin: 11/06/19 21:02 Dose: 20 mg Cyclobenzaprine HCl (Flexeril) 10 mg PO BEDTIME PRN PRN Reason: Muscle Spasm Last Admin: 11/05/19 21:33 Dose: 10 mg Dextrose (Glutose 15) 15 gm PO ONETIME PRN PRN Reason: Hypoglycemia Dextrose/Water (Dextrose 50% In Water) 50 ml IV ONETIME PRN PRN Reason: Hypoglycemia Enoxaparin Sodium (Lovenox) 40 mg SUBCUT BEDTIME [facility] Last Admin: 11/06/19 21:02 Dose: 40 mg Escitalopram Oxalate (Lexapro) 10 mg PO DAILY [facility] Last Admin: 11/07/19 08:01 Dose: 10 mg Fluticasone Propionate (Flonase) 0 gm NASBOTH DAILY [facility] Last Admin: 11/07/19 08:01 Dose: 2 sprays Furosemide (Lasix) 20 mg PO DAILY [facility] Last Admin: 11/07/19 08:00 Dose: 20 mg Glipizide (Glucotrol) 10 mg PO BID [facility] Last Admin: 11/07/19 08:01 Dose: 10 mg Hydrochlorothiazide (Hydrochlorothiazide) 25 mg PO DAILY [facility] Last Admin: 11/07/19 08:01 Dose: 25 mg Insulin Glargine (Lantus Solostar) 14 units SUBCUT BID [facility] Last Admin: 11/07/19 07:39 Dose: 14 unit Insulin Human Lispro (Humalog) 0 unit SUBCUT QIDACANDBED [facility]; Protocol Last Admin: 11/07/19 07:39 Dose: 1 unit Isosorbide Mononitrate (Imdur) 30 mg PO DAILY [facility] Last Admin: 11/07/19 08:00 Dose: 30 mg Lisinopril (Prinivil) 2.5 mg PO DAILY [facility] Last Admin: 11/06/19 08:05 Dose: 2.5 mg Metformin HCl (Glucophage) [facility] Last Admin: 11/07/19 08:00 Dose: 1,000 mg Montelukast Sodium (Singulair) 10 mg PO DAILY [facility] Last Admin: 11/07/19 08:01 Dose: 10 mg Ondansetron HCl (Zofran) 4 mg IV Q4H PRN PRN Reason: Nausea/Vomiting Polyethylene Glycol (Miralax) 17 gm PO DAILY PRN PRN Reason: Constipation Pramipexole Dihydrochloride (Mirapex) 2 mg PO BEDTIME [facility] Last Admin: 11/06/19 21:00 Dose: 2 mg Prednisone (Prednisone) 40 mg PO DAILY [facility] Sodium Chloride (Saline Flush) 10 ml FLUSH ASDIRECTED PRN PRN Reason: Keep Vein Open Tamsulosin HCl (Flomax) 0.4 mg PO DAILY [facility] Last Admin: 11/07/19 08:01 Dose: 0.4 mg Tolterodine Tartrate (Detrol) 2 mg PO BID [facility] Last Admin: 11/07/19 08:00 Dose: 2 mg Trazodone HCl (Trazodone) 150 mg PO BEDTIME [facility] Last Admin: 11/06/19 21:01 Dose: 150 mg Zolpidem Tartrate (Ambien) 10 mg PO BEDTIME [facility] Last Admin: 11/06/19 21:01 Dose: 10 mg Discontinued Medications Albuterol (Proventil Neb Soln) 2.5 mg NEB ONETIME ONE Stop: 11/05/19 15:43 Last Admin: 11/05/19 15:45 Dose: 2.5 mg Albuterol (Proventil Neb Soln) Confirm Administered Dose 2.5 mg .ROUTE .STK-MED ONE Stop: 11/05/19 15:42 Last Admin: 11/05/19 15:55 Dose: Not Given Furosemide (Lasix) 60 mg IVPUSH ONETIME ONE Stop: 11/05/19 16:38 Last Admin: 11/05/19 19:41 Dose: Not Given Sodium Chloride (Normal Saline) 1,000 mls @ 150 mls/hr IV ASDIRECTED [facility] Sodium Chloride (Normal Saline) 100 mls @ 3 mls/sec IV ASDIRECTED [facility] Iopamidol (Isovue-370 (76%)) 100 ml IV . DIRECTED [facility] Methylprednisolone Sodium Succinate (Solu-Medrol) 125 mg IVPUSH ONETIME ONE Stop: 11/05/19 16:14 Last Admin: 11/05/19 16:25 Dose: 125 mg Methylprednisolone Sodium Succinate (Solu-Medrol) 40 mg IVPUSH Q6H [facility] Last Admin: 11/06/19 03:27 Dose: 40 mg Methylprednisolone Sodium Succinate (Solu-Medrol) 40 mg IVPUSH Q12H [facility] Last Admin: 11/07/19 03:32 Dose: 40 mg Sodium Chloride (Saline Flush) 10 ml FLUSH ASDIRECTED PRN PRN Reason: Keep Vein Open Last Admin: 11/05/19 16:25 Dose: 10 ml - Exam Quality Assessment: Reports: DVT Prophylaxis General: Reports: Alert, Oriented, Cooperative, Mild Distress Lungs: Reports: Decreased Breath Sounds, Wheezing. Denies: Rales, Rhonchi Cardiovascular: Reports: Regular Rate, Regular Rhythm, No Murmurs GI/Abdominal Exam: Soft, Non-Tender, No Organomegaly, No Distention Extremities: Non-Tender, Pedal Edema
[2019-11-07] MEDS ORDERED: predniSONE 20 MG Tab PO SCH (09:30)
[2019-11-07 10:10] VITALS: BP 160/65
[2019-11-07] MEDS: Lisinopril 2.5 MG Tab PO SCH (10:10)
[2019-11-07 10:53] VITALS: PULSE 90
== END 2019-11-07 12:10 | disposition home or self-care (01) | DRG 191 ==
LOC: JP.ED 14:57 → JP.MS 16:46 → JP.ICU 17:28
PROVIDERS: ADMIT Hospitalist; ATTEND Hospitalist
DX: J44.1 Chronic obstructive pulmonary disease with (acute) exacerbation (principal); E87.70 Fluid overload, unspecified; Z68.42 Body mass index [BMI] 45.0-49.9, adult; E11.9 Type 2 diabetes mellitus without complications; I10 Essential (primary) hypertension; I25.10 Atherosclerotic heart disease of native coronary artery without angina pectoris; H54.7 Unspecified visual loss; E78.00 Pure hypercholesterolemia, unspecified; G47.30 Sleep apnea, unspecified; K21.9 Gastro-esophageal reflux disease without esophagitis; G89.29 Other chronic pain; M54.9 Dorsalgia, unspecified; M54.2 Cervicalgia; M19.90 Unspecified osteoarthritis, unspecified site; F32.9 Major depressive disorder, single episode, unspecified; E66.9 Obesity, unspecified; Z98.49 Cataract extraction status, unspecified eye; Z79.899 Other long term (current) drug therapy; Z79.84 Long term (current) use of oral hypoglycemic drugs; Z79.4 Long term (current) use of insulin; Z79.51 Long term (current) use of inhaled steroids; Z79.52 Long term (current) use of systemic steroids; Z79.82 Long term (current) use of aspirin; Z86.010 Personal history of colon polyps; Z87.440 Personal history of urinary (tract) infections; Z95.5 Presence of coronary angioplasty implant and graft; Z87.891 Personal history of nicotine dependence
CPT/HCPCS: 36415; 36600; 71045; 80053; 81001; 82803; 83880; 84484; 85025; 85379; 94640; J2930; 71250; 80048; 82962; 86140; 96374; 99285-25; A9270-GY; J1650; J1815; J1815-GY; J2920; J7620-GY

== ENCOUNTER 2020-11-10 15:54 | Inpatient (IN) | payer MEDICARE, OTHER ==
--- NOTE | 2020-11-10 17:25 | EDM.PDOC ---
ED HPI GENERAL MEDICAL PROBLEM - General Chief Complaint: Respiratory Problem Stated Complaint: SENT OVER FROM CLINIC FOR TEST Time Seen by Provider: 11/10/20 17:16 Source of Information: Reports: Patient, Family, Provider, RN Notes Reviewed History Limitations: Reports: No Limitations - History of Present Illness INITIAL COMMENTS - FREE TEXT/NARRATIVE: 80-year-old gentleman presents emergency department today sent over from clinic, he did see his primary care provider he has known history of COPD although he states over the last 3 to 4 days has been feeling maybe more short of breath than usual his biggest thing is he has had chills mainly at night just cannot keep warm enough and he describes what appears to be more like night sweats. He denies any fevers does not cough any sputum no chest pain no problems with bowel movements Chest Pain Score (Numeric/FACES): 3 - Related Data Allergies Allergy/AdvReac Type Severity Reaction Status Date / Time No Known Allergies Allergy Verified 11/10/20 16:41 Home Meds: Home Meds Albuterol [Ventolin HFA] 2 puff INH Q4H PRN 09/24/13 [History] Cyclobenzaprine [Flexeril] 10 - 15 mg PO BEDTIME PRN 09/24/13 [History] Escitalopram [Lexapro] 10 mg PO DAILY 09/24/13 [History] Isosorbide Mononitrate [Imdur] 30 mg PO DAILY 09/24/13 [History] Lisinopril [Zestril] 2.5 mg PO DAILY 09/24/13 [History] Montelukast [Singulair] 10 mg PO DAILY 09/24/13 [History] Nitroglycerin [Nitrostat] 0.4 mg SL ASDIRECTED PRN 09/24/13 [History] Pramipexole [Mirapex] 2 mg PO BEDTIME 09/24/13 [History] Zolpidem Tartrate [Ambien Cr] 12.5 mg PO BEDTIME 09/24/13 [History] atorvaSTATin [Lipitor] 20 mg PO BEDTIME 09/24/13 [History] hydroCHLOROthiazide [Hydrochlorothiazide] 25 mg PO DAILY 09/24/13 [History] metFORMIN HCl [Glucophage] 1,000 mg PO BIDM 09/24/13 [History] traZODone HCl [Trazodone HCl] 150 mg PO BEDTIME 09/24/13 [History] Aspirin [Low Dose Aspirin EC] 81 mg PO DAILY 09/30/14 [History] Fluticasone Propionate [Flonase] 2 spray NS DAILY 09/30/14 [History] Triamcinolone Acetonide [Kenalog 0.1% Crm] 1 applic TOP BID 09/30/14 [History] Furosemide [Lasix] 20 mg PO DAILY 09/16/16 [History] Exenatide Microspheres [Bydureon Pen] 2 mg SQ WEEKLY 09/18/16 [History] Insulin Glargine,Hum.Rec.Anlog [Lantus Solostar] 14 units SQ Q12H 11/05/19 [History] Tamsulosin HCl [Flomax] 0.4 mg PO DAILY 11/05/19 [History] Tolterodine Tartrate [Detrol LA] 4 mg PO DAILY 11/05/19 [History] glipiZIDE [Glucotrol] 10 mg PO BID 11/05/19 [History] predniSONE [Prednisone] 5 mg PO DAILY 11/05/19 [History] Albuterol [Proventil Neb Soln] 2.5 mg NEB Q4H PRN #60 neb 11/07/19 [Rx] Acetaminophen/HYDROcodone [[place] 325-5 MG] 1 tab PO DAILY 11/10/20 [History] Omeprazole 40 mg PO BIDAC 11/10/20 [History] Trospium Chloride 20 mg PO DAILY 11/10/20 [History] Umeclidinium Brm/Vilanterol Tr [Anoro Ellipta 62.5-25 MCG] 1 puff IH DAILY 11/10/20 [History] Past Medical History HEENT History: Reports: Cataract, Impaired Vision Cardiovascular History: Reports: CAD, High Cholesterol, Hypertension, SOB on Exertion, Stents Respiratory History: Reports: Bronchitis, Recurrent, COPD, Sleep Apnea, SOB Gastrointestinal History: Reports: Colon Polyp, GERD, Hemorrhoids Genitourinary History: Reports: UTI, Recurrent Musculoskeletal History: Reports: Back Pain, Chronic, Fracture, Neck Pain, Chronic, Osteoarthritis Psychiatric History: Reports: Depression Endocrine/Metabolic History: Reports: Diabetes, Type II, Obesity/BMI 30+ Dermatologic History: Reports: Eczema - Infectious Disease History Infectious Disease History: Reports: Chicken Pox, Measles, Mumps, Pertussis (Whooping Cough) - Past Surgical History HEENT Surgical History: Reports: Cataract Surgery Cardiovascular Surgical History: Reports: Coronary Artery Stent Respiratory Surgical History: Reports: None GI Surgical History: Reports: Colonoscopy, EGD Male Surgical History: Reports: None Endocrine Surgical History: Reports: None Neurological Surgical History: Reports: Discectomy Musculoskeletal Surgical History: Reports: None Dermatological Surgical History: Reports: None Social & Family History - Family History Family Medical History: No Pertinent Family History - Tobacco Use Tobacco Use Status *Q: Former Tobacco User Used Tobacco, but Quit: Yes Month/Year Tobacco Last Used: 2005 - Caffeine Use Caffeine Use: Reports: Coffee - Recreational Drug Use Recreational Drug Use: No ED ROS GENERAL - Review of Systems Review Of Systems: See Below Constitutional: Reports: Chills. Denies: Fever HEENT: Reports: No Symptoms Respiratory: Reports: Shortness of Breath. Denies: Cough, Sputum Cardiovascular: Reports: Dyspnea on Exertion. Denies: Chest Pain GI/Abdominal: Reports: No Symptoms ED EXAM, SEPSIS - Physical Exam Exam: See Below Exam Limited By: No Limitations General Appearance: Alert, WD/WN, No Apparent Distress Respiratory/Chest: No Respiratory Distress, Lungs Clear, Normal Breath Sounds, No Accessory Muscle Use, Chest Non-Tender Cardiovascular: Regular Rate, Rhythm, No Murmur, Tachycardia GI/Abdominal Exam: Soft, Non-Tender Extremities: No Pedal Edema Course - Vital Signs Last Recorded V/S: Last Vital Signs Temp 96.3 F L 11/11/20 02:28 Pulse 97 11/11/20 02:28 Resp 20 11/11/20 02:28 BP 132/65 11/11/20 02:28 Pulse Ox 94 L 11/11/20 02:28 - Orders/Labs/Meds Orders: Active Orders 24 hr Category Date Time Status Blood Pressure Mgt: Sepsis [RC] Q15MX2 Care 11/10/20 17:22 Active Cardiac Monitoring [RC] CONTINUOUS Care 11/10/20 21:49 Active Communication Order [RC] PER UNIT ROUTINE Care 11/10/20 21:49 Active Diabetes Education [RC] Click to Edit Care 11/10/20 21:49 Active EKG Documentation Completion [RC] ASDIRECTED Care 11/10/20 18:29 Active Intake and Output [RC] QSHIFT Care 11/10/20 21:49 Active Notify Provider Vital Signs [RC] ASDIRECTED Care 11/10/20 21:49 Active Notify Provider [RC] PRN Care 11/10/20 21:49 Active Oxygen Therapy [RC] PRN Care 11/10/20 21:49 Active Pulse Oximetry [RC] CONTINUOUS Care 11/10/20 21:49 Active RT Aerosol Therapy [RC] ASDIRECTED Care 11/10/20 21:49 Active Up With Assistance [RC] ASDIRECTED Care 11/10/20 21:49 Active VTE/DVT Education [RC] Per Unit Routine Care 11/10/20 21:49 Active Vital Signs [RC] Q4H Care 11/10/20 21:49 Active Consistent Carbohydrate Diet [DIET] Diet 11/10/20 Breakfast Active Chest 2V [CR] Stat Exams 11/10/20 17:21 Taken CULTURE BLOOD [BC] Urgent Lab 11/10/20 17:40 Received CULTURE BLOOD [BC] Urgent Lab 11/10/20 17:45 Received GLUCOSE POC LAB TO COLLECT JPM [POC] QIDACANDBED Lab 11/11/20 07:30 Ordered Acetaminophen [TylenoL] Med 11/10/20 21:49 Active 650 mg PO Q4H PRN Acetaminophen/HYDROcodone [[place] 325-5 MG] Med 11/11/20 09:00 Active 1 tab PO DAILY Albuterol [Proventil Neb Soln] Med 11/10/20 21:49 Active 2.5 mg NEB Q4H PRN Albuterol/Ipratropium [DuoNeb 3.0-0.5 MG/3 ML] Med 11/10/20 21:49 Active 3 ml NEB QID PRN Cyclobenzaprine [Flexeril] Med 11/10/20 21:59 Active 10 - 15 mg PO BEDTIME PRN Dextrose 50% in Water Med 11/10/20 21:49 Active 50 ml IVPUSH ASDIRECTED PRN Docusate Sodium [Colace] Med 11/10/20 21:49 Active 100 mg PO BID PRN Enoxaparin [Lovenox] Med 11/10/20 21:49 Active 40 mg SUBCUT DAILY Escitalopram [Lexapro] Med 11/11/20 09:00 Active 10 mg PO DAILY Exenatide Microspheres [Bydureon Pen] Med 11/10/20 21:49 Pending 2 mg SQ WEEKLY Fluticasone Propionate [Flonase] Med 11/11/20 09:00 Active 0 gm NASBOTH DAILY Furosemide [Lasix] Med 11/11/20 09:00 Active 20 mg PO DAILY Glucagon,Human Recombinant [GlucaGen] Med 11/10/20 21:49 Active 1 mg IM ASDIRECTED PRN Insulin Glarg,Human.Rec.Analog [LantUS Solostar] Med 11/10/20 21:49 Hold 14 units SUBCUT Q12H Insulin Lispro [HumaLOG] Med 11/11/20 07:00 Active See Protocol SUBCUT QIDACANDBED Isosorbide Mononitrate [Imdur] Med 11/11/20 09:00 Active 30 mg PO DAILY LORazepam [Ativan] Med 11/10/20 21:49 Active 1 mg IV Q6H PRN Levofloxacin/Dextrose 5%-Water [Levaquin in D5W 750 MG/ Med 11/10/20 17:30 Active 150 ML] 750 mg Premix Bag 1 bag IV Q24H Montelukast [Singulair] Med 11/11/20 21:00 Active 10 mg PO BEDTIME Morphine Med 11/10/20 21:49 Active 2 mg IVPUSH Q2H PRN Nitroglycerin [Nitrostat] Med 11/10/20 21:49 Active 0.4 mg SL ASDIRECTED PRN Ondansetron [Zofran ODT] Med 11/10/20 21:49 Active 4 mg PO Q6H PRN Pantoprazole [ProTONIX] Med 11/11/20 07:30 Active 40 mg PO BIDAC Pramipexole [Mirapex] Med 11/10/20 21:00 Active 2 mg PO BEDTIME Tamsulosin [Flomax] Med 11/11/20 09:00 Active 0.4 mg PO DAILY Tiotropium BR/Olodaterol HCL [Stiolto Respimat] Med 11/11/20 09:00 Active 0 gm INH DAILY Triamcinolone Acetonide [Kenalog 0.1% Crm] Med 11/10/20 21:49 Active 0 gm TOP BID Trospium [Sanctura] Med 11/11/20 09:00 Active 20 mg PO DAILY Zolpidem [Ambien] Med 11/10/20 21:00 Active 10 mg PO BEDTIME atorvaSTATin [Lipitor] Med 11/10/20 21:49 Active 20 mg PO BEDTIME bisacodyL [Dulcolax] Med 11/10/20 21:49 Active 5 mg PO DAILY PRN glipiZIDE [Glucotrol] Med 11/11/20 09:00 Active 10 mg PO BID hydroCHLOROthiazide Med 11/11/20 09:00 Active 25 mg PO DAILY lisinopriL [Prinivil] Med 11/11/20 09:00 Active 2.5 mg PO DAILY oxyCODONE Med 11/10/20 21:49 Active 5 mg PO Q4H PRN predniSONE Med 11/11/20 09:00 Active 5 mg PO DAILY traZODone Med 11/10/20 21:00 Active 150 mg PO BEDTIME Blood Culture x2 Reflex Set [OM.PC] Urgent Oth 11/10/20 17:21 Ordered Severe Sepsis Onset Time [OM.PC] Stat Oth 11/10/20 17:21 Ordered Resuscitation Status Routine Resus Stat 11/10/20 20:37 Ordered EKG 12 Lead [EK] Routine Ther 11/10/20 18:29 Ordered Medication Orders Acetaminophen (Acetaminophen 325 Mg Tab) 650 mg PO Q4H PRN PRN Reason: Pain (Mild 1-3)/fever Hydrocodone Bitart/Acetaminophen (Acetaminophen/Hydrocodone 325-5 Mg Tab) 1 tab PO DAILY KAYLA Albuterol (Albuterol 0.083% 2.5 Mg/3 Ml Neb Soln) 2.5 mg NEB Q4H PRN PRN Reason: Shortness Of Breath/wheezing Albuterol/Ipratropium (Albuterol/Ipratropium 3.0-0.5 Mg/3 Ml Neb Soln) 3 ml NEB QID PRN PRN Reason: Shortness Of Breath/wheezing Atorvastatin Calcium (Atorvastatin 20 Mg Tab) 20 mg PO BEDTIME KAYLA Last Admin: 11/10/20 22:21 Dose: 20 mg Documented by: ANETTE Bisacodyl (Bisacodyl 5 Mg Tab) 5 mg PO DAILY PRN PRN Reason: Constipation Cyclobenzaprine HCl (Cyclobenzaprine 10 Mg Tab) 10 - 15 mg PO BEDTIME PRN PRN Reason: Muscle Spasm Dextrose/Water (50% Dextrose In Water 50 Ml Syringe) 50 ml IVPUSH ASDIRECTED PRN PRN Reason: Hypoglycemia Docusate Sodium (Docusate Sodium 100 Mg Cap) 100 mg PO BID PRN PRN Reason: Constipation Enoxaparin Sodium (Enoxaparin 40 Mg/0.4 Ml Syringe) 40 mg SUBCUT DAILY [facility] Last Admin: 11/10/20 22:22 Dose: 40 mg Documented by: ANETTE Escitalopram Oxalate (Escitalopram 10 Mg Tab) 10 mg PO DAILY [facility] Fluticasone Propionate (Fluticasone Propionate Nasal [place] 16 Gm Bottle) 0 gm NASBOTH DAILY [facility] Furosemide (Furosemide 20 Mg Tab) 20 mg PO DAILY [facility] Glipizide (Glipizide 5 Mg Tab) 10 mg PO BID [facility] Glucagon (Glucagon,Human Recombinant 1 Mg Vial) 1 mg IM ASDIRECTED PRN PRN Reason: Hypoglycemia Hydrochlorothiazide (Hydrochlorothiazide 25 Mg Tab) 25 mg PO DAILY [facility] Levofloxacin/Dextrose 750 mg/ (Premix) 150 mls @ 100 mls/hr IV Q24H [facility] Last Admin: 11/10/20 17:50 Dose: 100 mls/hr Documented by: PREILOR Potassium Chloride 20 meq/ (Premix) 100 mls @ 50 mls/hr IV ONETIME ONE Stop: 11/11/20 07:39 Last Admin: 11/11/20 06:04 Dose: 50 mls/hr Documented by: ANETTE Insulin Glargine (Insulin Glargine,Human Rec. Analog 100 Units/Ml 3 Ml Pen) 14 units SUBCUT Q12H [facility] Last Admin: 11/10/20 22:11 Dose: Not Given Documented by: CHASE Insulin Human Lispro (Insulin Lispro 100 Unit/Ml 3 Ml Kwikpen) 0 unit SUBCUT QIDACANDBED [facility]; Protocol Isosorbide Mononitrate (Isosorbide Mononitrate 30 Mg Tab.Er) 30 mg PO DAILY [facility] Lisinopril (Lisinopril 2.5 Mg Tab) 2.5 mg PO DAILY [facility] Lorazepam (Lorazepam 2 Mg/Ml Sdv) 1 mg IV Q6H PRN PRN Reason: Nausea/Vomiting Montelukast Sodium (Montelukast 10 Mg Tab) 10 mg PO BEDTIME [facility] Morphine Sulfate (Morphine 2 Mg/Ml Syringe) 2 mg IVPUSH Q2H PRN PRN Reason: Pain (severe 7-10) Nitroglycerin (Nitroglycerin 0.4 Mg Tab.Sl) 0.4 mg SL ASDIRECTED PRN PRN Reason: Chest Pain Non-Formulary Medication (Exenatide Microspheres [Bydureon Pen]) 2 mg SQ WEEKLY [facility] Ondansetron HCl (Ondansetron 4 Mg Tab.Dis) 4 mg PO Q6H PRN PRN Reason: Nausea able to take PO Oxycodone HCl (Oxycodone 5 Mg Tab) 5 mg PO Q4H PRN PRN Reason: Pain (moderate 4-6) Pantoprazole Sodium (Pantoprazole 40 Mg Tab.Cr) 40 mg PO BIDAC [facility] Pramipexole Dihydrochloride (Pramipexole 0.5 Mg Tab) 2 mg PO BEDTIME [facility] Last Admin: 11/10/20 23:16 Dose: 2 mg Documented by: ANETTE Prednisone (Prednisone 5 Mg Tab) 5 mg PO DAILY [facility] Tamsulosin HCl (Tamsulosin 0.4 Mg Cap.Er) 0.4 mg PO DAILY [facility] Trazodone HCl (Trazodone 50 Mg Tab) 150 mg PO BEDTIME [facility] Last Admin: 11/10/20 22:21 Dose: 150 mg Documented by: ANETTE Triamcinolone Acetonide (Triamcinolone Acetonide 0.1% Crm 80 Gm Tube) 0 gm TOP BID [facility] Last Admin: 11/10/20 22:58 Dose: Not Given Documented by: ANETTE Trospium (Trospium 20 Mg Tab) 20 mg PO DAILY [facility] Zolpidem Tartrate (Zolpidem 5 Mg Tab) 10 mg PO BEDTIME [facility] Last Admin: 11/10/20 22:21 Dose: 10 mg Documented by: ANETTE Labs: Laboratory Tests 11/10/20 11/10/20 11/10/20 Range/Units 17:40 17:40 17:40 WBC 14.0 H (4.5-11.0) K/uL RBC 4.79 (4.30-5.90) M/uL Hgb 14.0 (12.0-15.0) g/dL Hct 41.1 (40.0-54.0) % MCV 86 (80-98) fL MCH 29 (27-31) pg MCHC 34 (32-36) % Plt Count 193 (150-400) K/uL Neut % (Auto) 79 H (36-66) % Lymph % (Auto) 11 L (24-44) % [place] % (Auto) 9 H (2-6) % Eos % (Auto) 0 L (2-4) % Baso % (Auto) 0 (0-1) % Sodium 130 L (140-148) mmol/L Potassium 3.3 L (3.6-5.2) mmol/L Chloride 87 L (100-108) mmol/L Carbon Dioxide 31 (21-32) mmol/L Anion Gap 15.3 H (5.0-14.0) mmol/L BUN 19 H (7-18) mg/dL Creatinine 1.2 (0.8-1.3) mg/dL Est Cr Clr Drug Dosing 39.18 mL/min Estimated GFR (MDRD) 59 L (>60) Glucose 71 L (74-106) mg/dL Lactic Acid 2.5 H (0.4-2.0) mmol/L Calcium 9.2 (8.5-10.1) mg/dL Total Bilirubin 0.5 D (0.2-1.0) mg/dL AST 19 (15-37) U/L ALT 21 (12-78) U/L Alkaline Phosphatase 135 H (46-116) U/L Troponin I 0.177 H* (0.000-0.056) ng/mL C-Reactive Protein < 0.05 (0.0-0.3) mg/dL NT-Pro-B Natriuret Pep (5-450) pg/mL Total Protein 7.0 (6.4-8.2) g/dL Albumin 3.5 (3.4-5.0) g/dL Globulin 3.5 (2.3-3.5) g/dL Albumin/Globulin Ratio 1.0 L (1.2-2.2) Procalcitonin ng/mL Influenza Type A RNA (NEGATIVE) RSV RNA (INAAT) (NEGATIVE) Influenza Type B RNA (NEGATIVE) SARS-CoV-2 RNA (JAN) (NEGATIVE) 11/10/20 11/10/20 11/10/20 Range/Units 17:40 18:37 19:21 WBC (4.5-11.0) K/uL RBC (4.30-5.90) M/uL Hgb (12.0-15.0) g/dL Hct (40.0-54.0) % MCV (80-98) fL MCH (27-31) pg MCHC (32-36) % Plt Count (150-400) K/uL Neut % (Auto) (36-66) % Lymph % (Auto) (24-44) % [place] % (Auto) (2-6) % Eos % (Auto) (2-4) % Baso % (Auto) (0-1) % Sodium (140-148) mmol/L Potassium (3.6-5.2) mmol/L Chloride (100-108) mmol/L Carbon Dioxide (21-32) mmol/L Anion Gap (5.0-14.0) mmol/L BUN (7-18) mg/dL Creatinine (0.8-1.3) mg/dL Est Cr Clr Drug Dosing mL/min Estimated GFR (MDRD) (>60) Glucose (74-106) mg/dL Lactic Acid (0.4-2.0) mmol/L Calcium (8.5-10.1) mg/dL Total Bilirubin (0.2-1.0) mg/dL AST (15-37) U/L ALT (12-78) U/L Alkaline Phosphatase (46-116) U/L Troponin I (0.000-0.056) ng/mL C-Reactive Protein (0.0-0.3) mg/dL NT-Pro-B Natriuret Pep 1135 H (5-450) pg/mL Total Protein (6.4-8.2) g/dL Albumin (3.4-5.0) g/dL Globulin (2.3-3.5) g/dL Albumin/Globulin Ratio (1.2-2.2) Procalcitonin < 0.05 ng/mL Influenza Type A RNA Negative (NEGATIVE) RSV RNA (INAAT) Negative (NEGATIVE) Influenza Type B RNA Negative (NEGATIVE) SARS-CoV-2 RNA (JAN) Negative (NEGATIVE) Meds: Medications Generic Name Dose Route Start Last Admin Trade Name Freq PRN Reason Stop Dose Admin Acetaminophen 650 mg 11/10/20 21:49 Acetaminophen 325 Mg Tab PO Q4H PRN Pain (Mild 1-3)/fever Hydrocodone Bitart/Acetaminophen 1 tab 11/11/20 09:00 Acetaminophen/Hydrocodone 325-5 Mg Tab PO DAILY KAYLA Albuterol 2.5 mg 11/10/20 21:49 Albuterol 0.083% 2.5 Mg/3 Ml Neb Soln NEB Q4H PRN Shortness Of Breath/wheezing Albuterol/Ipratropium 3 ml 11/10/20 21:49 Albuterol/Ipratropium 3.0-0.5 Mg/3 Ml Neb Soln NEB QID PRN Shortness Of Breath/wheezing Atorvastatin Calcium 20 mg 11/10/20 21:49 11/10/20 22:21 Atorvastatin 20 Mg Tab PO 20 mg BEDTIME KAYLA Administration Bisacodyl 5 mg 11/10/20 21:49 Bisacodyl 5 Mg Tab PO DAILY PRN Constipation Cyclobenzaprine HCl 10 - 15 mg 11/10/20 21:59 Cyclobenzaprine 10 Mg Tab PO BEDTIME PRN Muscle Spasm Dextrose/Water 50 ml 11/10/20 21:49 50% Dextrose In Water 50 Ml Syringe IVPUSH ASDIRECTED PRN Hypoglycemia Docusate Sodium 100 mg 11/10/20 21:49 Docusate Sodium 100 Mg Cap PO BID PRN Constipation Enoxaparin Sodium 40 mg 11/10/20 21:49 11/10/20 22:22 Enoxaparin 40 Mg/0.4 Ml Syringe SUBCUT 40 mg DAILY KAYLA Administration Escitalopram Oxalate 10 mg 11/11/20 09:00 Escitalopram 10 Mg Tab PO DAILY KAYLA Fluticasone Propionate 0 gm 11/11/20 09:00 Fluticasone Propionate Nasal [place] 16 Gm Bottle NASBOTH DAILY KAYLA Furosemide 20 mg 11/11/20 09:00 Furosemide 20 Mg Tab PO DAILY KAYLA Glipizide 10 mg 11/11/20 09:00 Glipizide 5 Mg Tab PO BID KAYLA Glucagon 1 mg 11/10/20 21:49 Glucagon,Human Recombinant 1 Mg Vial IM ASDIRECTED PRN Hypoglycemia Hydrochlorothiazide 25 mg 11/11/20 09:00 Hydrochlorothiazide 25 Mg Tab PO DAILY KAYLA Levofloxacin/Dextrose 750 mg/ 150 mls @ 100 mls/hr 11/10/20 17:30 11/10/20 17:50 Premix IV 100 mls/hr Q24H KAYLA Administration Potassium Chloride 20 meq/ 100 mls @ 50 mls/hr 11/11/20 05:40 11/11/20 06:04 Premix IV 11/11/20 07:39 50 mls/hr ONETIME ONE Administration Insulin Glargine 14 units 11/10/20 21:49 11/10/20 22:11 Insulin Glargine,Human Rec. Analog 100 Units/Ml 3 Ml Pen SUBCUT Not Given Q12H [facility] Insulin Human Lispro 0 unit 11/11/20 07:00 Insulin Lispro 100 Unit/Ml 3 Ml Kwikpen SUBCUT QIDACANDBED [facility] Protocol Isosorbide Mononitrate 30 mg 11/11/20 09:00 Isosorbide Mononitrate 30 Mg Tab.Er PO DAILY [facility] Lisinopril 2.5 mg 11/11/20 09:00 Lisinopril 2.5 Mg Tab PO DAILY [facility] Lorazepam 1 mg 11/10/20 21:49 Lorazepam 2 Mg/Ml Sdv IV Q6H PRN Nausea/Vomiting Montelukast Sodium 10 mg 11/11/20 21:00 Montelukast 10 Mg Tab PO BEDTIME [facility] Morphine Sulfate 2 mg 11/10/20 21:49 Morphine 2 Mg/Ml Syringe IVPUSH Q2H PRN Pain (severe 7-10) Nitroglycerin 0.4 mg 11/10/20 21:49 Nitroglycerin 0.4 Mg Tab.Sl SL ASDIRECTED PRN Chest Pain Non-Formulary Medication 2 mg 11/10/20 21:49 Exenatide Microspheres [Bydureon Pen] SQ WEEKLY [facility] Ondansetron HCl 4 mg 11/10/20 21:49 Ondansetron 4 Mg Tab.Dis PO Q6H PRN Nausea able to take PO Oxycodone HCl 5 mg 11/10/20 21:49 Oxycodone 5 Mg Tab PO Q4H PRN Pain (moderate 4-6) Pantoprazole Sodium 40 mg 11/11/20 07:30 Pantoprazole 40 Mg Tab.Cr PO BIDAC [facility] Pramipexole Dihydrochloride 2 mg 11/10/20 21:00 11/10/20 23:16 Pramipexole 0.5 Mg Tab PO 2 mg BEDTIME KAYLA Administration Prednisone 5 mg 11/11/20 09:00 Prednisone 5 Mg Tab PO DAILY [facility] Tamsulosin HCl 0.4 mg 11/11/20 09:00 Tamsulosin 0.4 Mg Cap.Er PO DAILY KAYLA Trazodone HCl 150 mg 11/10/20 21:00 11/10/20 22:21 Trazodone 50 Mg Tab PO 150 mg BEDTIME KAYLA Administration Triamcinolone Acetonide 0 gm 11/10/20 21:49 11/10/20 22:58 Triamcinolone Acetonide 0.1% Crm 80 Gm Tube TOP Not Given BID KAYLA Trospium 20 mg 11/11/20 09:00 Trospium 20 Mg Tab PO DAILY KAYLA Zolpidem Tartrate 10 mg 11/10/20 21:00 11/10/20 22:21 Zolpidem 5 Mg Tab PO 10 mg BEDTIME KAYLA Administration Discontinued Medications Generic Name Dose Route Start Last Admin Trade Name Freq PRN Reason Stop Dose Admin Bumetanide 2 mg 11/10/20 19:48 11/10/20 20:14 Bumetanide 2.5 Mg/10 Ml Mdv IVPUSH 11/10/20 19:49 2 mg ONETIME ONE Administration Lactated Ringer's 1,000 mls @ 500 mls/hr 11/10/20 17:30 11/10/20 17:49 Ringers, Lactated IV 500 mls/hr ASDIRECTED KAYLA Administration Potassium Chloride 20 meq/ 100 mls @ 50 mls/hr 11/10/20 19:50 11/10/20 20:15 Premix IV 11/10/20 21:49 50 mls/hr ONETIME ONE Administration Lidocaine HCl 5 ml 11/10/20 20:07 11/10/20 20:16 Lidocaine 1% 5 Ml Sdv INJECT 11/10/20 20:08 2 ml ONETIME ONE Administration Lidocaine HCl 2 ml 11/11/20 05:42 11/11/20 06:05 Lidocaine 1% 5 Ml Sdv INJECT 11/11/20 05:43 2 ml ONETIME ONE Administration Departure - Departure Time of Disposition: 07:01 Disposition: Admitted As Inpatient 68 Clinical Impression: Congestive heart failure (CHF) Qualifiers: Heart failure type: unspecified Heart failure chronicity: acute on chronic Qualified Code(s): I50.9 - Heart failure, unspecified - Discharge Information Sepsis Event Note (ED) - Evaluation Sepsis Screening Result: Possible Sepsis Risk - Focused Exam Vital Signs: Vital Signs Pulse Resp BP Pulse Ox 11/10/20 20:43 105 H 20 152/79 H 93 L 11/10/20 20:03 113 H 18 139/67 94 L - My Orders Last 24 Hours: My Active Orders 11/10/20 17:21 Chest 2V [CR] Stat Blood Culture x2 Reflex Set [OM.PC] Urgent Severe Sepsis Onset Time [OM.PC] Stat 11/10/20 17:22 Blood Pressure Mgt: Sepsis [RC] Q15MX2 11/10/20 17:30 Levofloxacin/Dextrose 5%-Water [Levaquin in D5W 750 MG/150 ML] 750 mg Premix Bag 1 bag IV Q24H 11/10/20 17:40 CULTURE BLOOD [BC] Urgent 11/10/20 17:45 CULTURE BLOOD [BC] Urgent - Assessment/Plan Last 24 Hours: My Active Orders 11/10/20 17:21 Chest 2V [CR] Stat Blood Culture x2 Reflex Set [OM.PC] Urgent Severe Sepsis Onset Time [OM.PC] Stat 11/10/20 17:22 Blood Pressure Mgt: Sepsis [RC] [id number] 11/10/20 17:30 Levofloxacin/Dextrose 5%-Water [Levaquin in D5W 750 MG/150 ML] 750 mg Premix Bag 1 bag IV Q24H 11/10/20 17:40 CULTURE BLOOD [BC] Urgent 11/10/20 17:45 CULTURE BLOOD [BC] Urgent Plan: Assessment Acuity = acute Site and laterality = CHF exacerbation Etiology = unknown Manifestations = dyspnea Location of injury = Home Lab values = WBC 14.0 consistent with leukocytosis, sodium of 130 consistent hyponatremia potassium low at 3.3 consistent hypokalemia lactic acid slightly elevated 2.5 consistent with lactic acidosis troponin elevated 0.177 high related to leak phenomenon BNP elevated 1135 consistent with fluid overload type pattern CRP is negative process calcitonin is negative chest x-ray no acute process official read radiologist pending EKG demonstrates atrial fibrillation Plan Call discussed case hospitalist on-call at 1830 kindly agreed to come evaluate the patient emergency department for admission This note was dictated using [employer] voice recognition software please call with any questions on syntax or grammar.
[2020-11-10] MEDS ORDERED: Lactated Ringers 1,000 ML IV SCH (17:30)
[2020-11-10] MEDS ORDERED: Levofloxacin/Dextrose 5%-Water 750 MG in Premix Bag 1 BAG IV SCH (17:30)
[2020-11-10 19:19] LABS: CORONAVIRUS COVID-19 NAA NEGATIVE (NEGATIVE)
[2020-11-10] MEDS ORDERED: Bumetanide 2.5 MG/10 ML MDV IVPUSH ONE (19:48)
[2020-11-10] MEDS ORDERED: Potassium Chloride 20 MEQ in Premix Bag 1 BAG IV ONE (19:50)
[2020-11-10] MEDS ORDERED: oxyCODONE 5 MG Tab PO PRN (21:49)
[2020-11-10] MEDS ORDERED: Morphine 2 MG/ML SYRINGE IVPUSH PRN (21:49)
[2020-11-10] MEDS ORDERED: Enoxaparin 40 MG/0.4 ML Syringe SUBCUT SCH (21:49)
[2020-11-10] MEDS ORDERED: Albuterol/Ipratropium 3.0-0.5 MG/3 ML Neb Soln NEB PRN (21:49)
[2020-11-10] MEDS ORDERED: EXENATIDE MICROSPHERES 2 MG/0.65 ML SQ SCH (21:49)
[2020-11-10] MEDS ORDERED: Acetaminophen 325 MG Tab PO PRN (21:49)
[2020-11-10] MEDS ORDERED: LORazepam 2 MG/ML SDV IV PRN (21:49)
[2020-11-10] MEDS ORDERED: Bisacodyl 5 MG Tab PO PRN (21:49)
[2020-11-10] MEDS ORDERED: Glucagon,Human Recombinant 1 MG Vial IM PRN (21:49)
[2020-11-10] MEDS ORDERED: Ondansetron 4 MG Tab.DIS PO PRN (21:49)
[2020-11-10] MEDS ORDERED: 50% Dextrose in Water 50 ML Syringe IVPUSH PRN (21:49)
[2020-11-10] MEDS ORDERED: Nitroglycerin 0.4 MG Tab.SL SL PRN (21:49)
[2020-11-10] MEDS ORDERED: Cyclobenzaprine 10 MG Tab PO PRN (21:59)
[2020-11-10] MEDS: Insulin Glargine,Human Rec. Analog 100 Units/ML 3 ML Pen SUBCUT SCH (22:11)
--- NOTE | 2020-11-10 22:18 | PCM.HP.2 ---
H&P History of Present Illness - General Date of Service: 11/10/20 Admit Problem/Dx: Admission Diagnosis/Problem Admission Diagnosis/Problem Congestive heart failure Source of Information: Patient History Limitations: Reports: No Limitations - History of Present Illness Initial Comments - Free Text/Narative: chief complaint: shortness of breath 80-year-old gentleman presents emergency department today sent over from clinic, he did see his primary care provider he has known history of COPD although he states over the last 3 to 4 days has been feeling maybe more short of breath than usual his biggest thing is he has had chills mainly at night just cannot keep warm enough and he describes what appears to be more like night sweats. He denies any fevers does not cough any sputum no chest pain no problems with bowel movements. Onset of Symptoms: Reports: Gradual Duration of Symptoms: Reports: Chronic (shortness of breath for about one month- getting worse the past 3-4 days.), Other Location: Reports: Chest, Generalized Quality: Reports: Same as Previous Episode Improves with: Reports: Medication, Rest Worsens with: Reports: Movement Context: Reports: Other (chronic disease) Associated Symptoms: Reports: Cough, Fever/Chills (chills without fever), Shortness of Breath Chest Pain Score (Numeric/FACES): 3 - Related Data Allergies/Adverse Reactions: Allergies Allergy/AdvReac Type Severity Reaction Status Date / Time No Known Allergies Allergy Verified 11/10/20 16:41 Home Medications: Home Meds Albuterol [Ventolin HFA] 2 puff INH Q4H PRN 09/24/13 [History] Cyclobenzaprine [Flexeril] 10 - 15 mg PO BEDTIME PRN 09/24/13 [History] Escitalopram [Lexapro] 10 mg PO DAILY 09/24/13 [History] Isosorbide Mononitrate [Imdur] 30 mg PO DAILY 09/24/13 [History] Lisinopril [Zestril] 2.5 mg PO DAILY 09/24/13 [History] Montelukast [Singulair] 10 mg PO DAILY 09/24/13 [History] Nitroglycerin [Nitrostat] 0.4 mg SL ASDIRECTED PRN 09/24/13 [History] Pramipexole [Mirapex] 2 mg PO BEDTIME 09/24/13 [History] Zolpidem Tartrate [Ambien Cr] 12.5 mg PO BEDTIME 09/24/13 [History] atorvaSTATin [Lipitor] 20 mg PO BEDTIME 09/24/13 [History] hydroCHLOROthiazide [Hydrochlorothiazide] 25 mg PO DAILY 09/24/13 [History] metFORMIN HCl [Glucophage] 1,000 mg PO BIDM 09/24/13 [History] traZODone HCl [Trazodone HCl] 150 mg PO BEDTIME 09/24/13 [History] Aspirin [Low Dose Aspirin EC] 81 mg PO DAILY 09/30/14 [History] Fluticasone Propionate [Flonase] 2 spray NS DAILY 09/30/14 [History] Triamcinolone Acetonide [Kenalog 0.1% Crm] 1 applic TOP BID 09/30/14 [History] Furosemide [Lasix] 20 mg PO DAILY 09/16/16 [History] Exenatide Microspheres [Bydureon Pen] 2 mg SQ WEEKLY 09/18/16 [History] Insulin Glargine,Hum.Rec.Anlog [Lantus Solostar] 14 units SQ Q12H 11/05/19 [History] Tamsulosin HCl [Flomax] 0.4 mg PO DAILY 11/05/19 [History] Tolterodine Tartrate [Detrol LA] 4 mg PO DAILY 11/05/19 [History] glipiZIDE [Glucotrol] 10 mg PO BID 11/05/19 [History] predniSONE [Prednisone] 5 mg PO DAILY 11/05/19 [History] Albuterol [Proventil Neb Soln] 2.5 mg NEB Q4H PRN #60 neb 11/07/19 [Rx] Acetaminophen/HYDROcodone [[place]if[place] 325-5 MG] 1 tab PO DAILY 11/10/20 [History] Omeprazole 40 mg PO BIDAC 11/10/20 [History] Trospium Chloride 20 mg PO DAILY 11/10/20 [History] Umeclidinium Brm/Vilanterol Tr [Anoro Ellipta 62.5-25 MCG] 1 puff IH DAILY 11/10/20 [History] Past Medical History HEENT History: Reports: Cataract, Impaired Vision Cardiovascular History: Reports: CAD, High Cholesterol, Hypertension, SOB on Exertion, Stents Respiratory History: Reports: Bronchitis, Recurrent, COPD, Sleep Apnea, SOB Gastrointestinal History: Reports: Colon Polyp, GERD, Hemorrhoids Genitourinary History: Reports: UTI, Recurrent Musculoskeletal History: Reports: Back Pain, Chronic, Fracture, Neck Pain, Chronic, Osteoarthritis Neurological History: Reports: None Psychiatric History: Reports: Depression Endocrine/Metabolic History: Reports: Diabetes, Type II, Obesity/BMI 30+ Dermatologic History: Reports: Eczema - Infectious Disease History Infectious Disease History: Reports: Chicken Pox, Measles, Mumps, Pertussis (Whooping Cough) - Past Surgical History HEENT Surgical History: Reports: Cataract Surgery Cardiovascular Surgical History: Reports: Coronary Artery Stent Respiratory Surgical History: Reports: None GI Surgical History: Reports: Colonoscopy, EGD Male Surgical History: Reports: None Endocrine Surgical History: Reports: None Neurological Surgical History: Reports: Discectomy Musculoskeletal Surgical History: Reports: None Dermatological Surgical History: Reports: None Social & Family History - Family History Family Medical History: No Pertinent Family History - Tobacco Use Tobacco Use Status *Q: Former Tobacco User Used Tobacco, but Quit: Yes Month/Year Tobacco Last Used: 2005 - Caffeine Use Caffeine Use: Reports: Coffee - Recreational Drug Use Recreational Drug Use: No - Living Situation & Occupation Living situation: Reports: Single (li) Occupation: Disabled (lives with Son in [place], [place]. has two adult children.) H&P Review of Systems - Review of Systems: Review Of Systems: See Below General: Reports: Chills, Weakness, Fatigue, Weight Gain HEENT: Reports: Glasses, Other (dentures) Pulmonary: Reports: Shortness of Breath, Pleuritic Chest Pain, Cough (occasional) Cardiovascular: Reports: Dyspnea on Exertion, Edema (lower legs and hands) Gastrointestinal: Reports: No Symptoms Genitourinary: Reports: No Symptoms Musculoskeletal: Reports: No Symptoms Skin: Reports: Rash (lower legs- treated with triamcinolone) Psychiatric: Reports: No Symptoms Neurological: Reports: No Symptoms Hematologic/Lymphatic: Reports: No Symptoms Immunologic: Reports: No Symptoms Exam - Exam Exam: See Below - Vital Signs Vital Signs: Last Vital Signs Temp 98.5 F 11/10/20 16:46 Pulse 105 H 11/10/20 20:43 Resp 20 11/10/20 20:43 BP 152/79 H 11/10/20 20:43 Pulse Ox 93 L 11/10/20 20:43 Weight: 290 lb - Exam Quality Assessment: Skin Breakdown (rash to lower legs) General: Alert, Oriented, Cooperative, Mild Distress (increased work of respiration with movement ) HEENT: PERRLA, Hearing Intact, Mucosa Moist & [place], Nares Patent, Normal Nasal Septum, Posterior Pharynx Clear, Conjunctiva Clear, EOMI, EACs Clear, TMs Clear Neck: Supple, Trachea Midline, 2 Lungs: Decreased Breath Sounds, Crackles (at bases), Wheezing (bilateral) Cardiovascular: Irregular Rhythm GI/Abdominal Exam: Normal Bowel Sounds, Soft, Distended (due to obese) (Male) Exam: Other (depends on Mr. Corbin) Back Exam: Normal Inspection, Full Range of Motion Extremities: Normal Range of Motion, Non-Tender, Pedal Edema (1+), Slow Capillary Refill Skin: Warm, Dry, Intact, Rash (dry dermatitis to the lower legs, more intense rash noted to the right lower leg) Neurological: Reflexes Equal Bilateral, Strength Equal Bilateral, Normal Gait, Normal Speech, Normal Tone, Sensation Intact Neuro Extensive - Mental Status: Alert, Oriented x3, Normal Mood/Affect, Normal Cognition, Memory Intact Psychiatric: Alert, Normal Affect, Normal Mood - Patient Data Lab Results Last 24 hrs: Laboratory Results - last 24 hr 11/10/20 11/10/20 11/10/20 Range/Units 17:40 17:40 17:40 WBC 14.0 H (4.5-11.0) K/uL RBC 4.79 (4.30-5.90) M/uL Hgb 14.0 (12.0-15.0) g/dL Hct 41.1 (40.0-54.0) % MCV 86 (80-98) fL MCH 29 (27-31) pg MCHC 34 (32-36) % Plt Count 193 (150-400) K/uL Neut % (Auto) 79 H (36-66) % Lymph % (Auto) 11 L (24-44) % [place] % (Auto) 9 H (2-6) % Eos % (Auto) 0 L (2-4) % Baso % (Auto) 0 (0-1) % Sodium 130 L (140-148) mmol/L Potassium 3.3 L (3.6-5.2) mmol/L Chloride 87 L (100-108) mmol/L Carbon Dioxide 31 (21-32) mmol/L Anion Gap 15.3 H (5.0-14.0) mmol/L BUN 19 H (7-18) mg/dL Creatinine 1.2 (0.8-1.3) mg/dL Est Cr Clr Drug Dosing 39.18 mL/min Estimated GFR (MDRD) 59 L (>60) Glucose 71 L (74-106) mg/dL Lactic Acid 2.5 H (0.4-2.0) mmol/L Calcium 9.2 (8.5-10.1) mg/dL Total Bilirubin 0.5 D (0.2-1.0) mg/dL AST 19 (15-37) U/L ALT 21 (12-78) U/L Alkaline Phosphatase 135 H (46-116) U/L Troponin I 0.177 H* (0.000-0.056) ng/mL C-Reactive Protein < 0.05 (0.0-0.3) mg/dL NT-Pro-B Natriuret Pep (5-450) pg/mL Total Protein 7.0 (6.4-8.2) g/dL Albumin 3.5 (3.4-5.0) g/dL Globulin 3.5 (2.3-3.5) g/dL Albumin/Globulin Ratio 1.0 L (1.2-2.2) Procalcitonin ng/mL Urine Color (YELLOW) Urine Appearance (CLEAR) Urine pH (5.0-8.0) Ur Specific [place] (1.008-1.030) Urine Protein (NEGATIVE) mg/dL Urine Glucose (UA) (NEGATIVE) mg/dL Urine Ketones (NEGATIVE) mg/dL Urine Occult Blood (NEGATIVE) Urine Nitrite (NEGATIVE) Urine Bilirubin (NEGATIVE) Urine Urobilinogen (0.2-1.0) EU/dL Ur Leukocyte Esterase (NEGATIVE) Influenza Type A RNA (NEGATIVE) RSV RNA (INAAT) (NEGATIVE) Influenza Type B RNA (NEGATIVE) SARS-CoV-2 RNA (JAN) (NEGATIVE) 11/10/20 11/10/20 11/10/20 Range/Units 17:40 18:37 19:21 WBC (4.5-11.0) K/uL RBC (4.30-5.90) M/uL Hgb (12.0-15.0) g/dL Hct (40.0-54.0) % MCV (80-98) fL MCH (27-31) pg MCHC (32-36) % Plt Count (150-400) K/uL Neut % (Auto) (36-66) % Lymph % (Auto) (24-44) % [place] % (Auto) (2-6) % Eos % (Auto) (2-4) % Baso % (Auto) (0-1) % Sodium (140-148) mmol/L Potassium (3.6-5.2) mmol/L Chloride (100-108) mmol/L Carbon Dioxide (21-32) mmol/L Anion Gap (5.0-14.0) mmol/L BUN (7-18) mg/dL Creatinine (0.8-1.3) mg/dL Est Cr Clr Drug Dosing mL/min Estimated GFR (MDRD) (>60) Glucose (74-106) mg/dL Lactic Acid (0.4-2.0) mmol/L Calcium (8.5-10.1) mg/dL Total Bilirubin (0.2-1.0) mg/dL AST (15-37) U/L ALT (12-78) U/L Alkaline Phosphatase (46-116) U/L Troponin I (0.000-0.056) ng/mL C-Reactive Protein (0.0-0.3) mg/dL NT-Pro-B Natriuret Pep 1135 H (5-450) pg/mL Total Protein (6.4-8.2) g/dL Albumin (3.4-5.0) g/dL Globulin (2.3-3.5) g/dL Albumin/Globulin Ratio (1.2-2.2) Procalcitonin < 0.05 ng/mL Urine Color (YELLOW) Urine Appearance (CLEAR) Urine pH (5.0-8.0) Ur Specific [place] (1.008-1.030) Urine Protein (NEGATIVE) mg/dL Urine Glucose (UA) (NEGATIVE) mg/dL Urine Ketones (NEGATIVE) mg/dL Urine Occult Blood (NEGATIVE) Urine Nitrite (NEGATIVE) Urine Bilirubin (NEGATIVE) Urine Urobilinogen (0.2-1.0) EU/dL Ur Leukocyte Esterase (NEGATIVE) Influenza Type A RNA Negative (NEGATIVE) RSV RNA (INAAT) Negative (NEGATIVE) Influenza Type B RNA Negative (NEGATIVE) SARS-CoV-2 RNA (JAN) Negative (NEGATIVE) 11/10/20 Range/Units 21:49 WBC (4.5-11.0) K/uL RBC (4.30-5.90) M/uL Hgb (12.0-15.0) g/dL Hct (40.0-54.0) % MCV (80-98) fL MCH (27-31) pg MCHC (32-36) % Plt Count (150-400) K/uL Neut % (Auto) (36-66) % Lymph % (Auto) (24-44) % [place] % (Auto) (2-6) % Eos % (Auto) (2-4) % Baso % (Auto) (0-1) % Sodium (140-148) mmol/L Potassium (3.6-5.2) mmol/L Chloride (100-108) mmol/L Carbon Dioxide (21-32) mmol/L Anion Gap (5.0-14.0) mmol/L BUN (7-18) mg/dL Creatinine (0.8-1.3) mg/dL Est Cr Clr Drug Dosing mL/min Estimated GFR (MDRD) (>60) Glucose (74-106) mg/dL Lactic Acid (0.4-2.0) mmol/L Calcium (8.5-10.1) mg/dL Total Bilirubin (0.2-1.0) mg/dL AST (15-37) U/L ALT (12-78) U/L Alkaline Phosphatase (46-116) U/L Troponin I (0.000-0.056) ng/mL C-Reactive Protein (0.0-0.3) mg/dL NT-Pro-B Natriuret Pep (5-450) pg/mL Total Protein (6.4-8.2) g/dL Albumin (3.4-5.0) g/dL Globulin (2.3-3.5) g/dL Albumin/Globulin Ratio (1.2-2.2) Procalcitonin ng/mL Urine Color Yellow (YELLOW) Urine Appearance Clear (CLEAR) Urine pH 7.5 (5.0-8.0) Ur Specific [place] 1.020 (1.008-1.030) Urine Protein Negative (NEGATIVE) mg/dL Urine Glucose (UA) Negative (NEGATIVE) mg/dL Urine Ketones Negative (NEGATIVE) mg/dL Urine Occult Blood Trace-intact H (NEGATIVE) Urine Nitrite Negative (NEGATIVE) Urine Bilirubin Negative (NEGATIVE) Urine Urobilinogen 0.2 (0.2-1.0) EU/dL Ur Leukocyte Esterase Small H (NEGATIVE) Influenza Type A RNA (NEGATIVE) RSV RNA (INAAT) (NEGATIVE) Influenza Type B RNA (NEGATIVE) SARS-CoV-2 RNA (JAN) (NEGATIVE) Result Diagrams: 11/10/20 17:40 11/10/20 17:40 Sepsis Event Note - Evaluation Sepsis Screening Result: Possible Sepsis Risk - Focused Exam Vital Signs: Vital Signs Temp Pulse Resp BP Pulse Ox 11/10/20 20:43 105 H 20 152/79 H 93 L 11/10/20 20:03 113 H 18 139/67 94 L 11/10/20 17:47 73 22 H 133/75 94 L 11/10/20 16:46 98.5 F 104 H 21 H 139/67 92 L 11/10/20 16:33 98.5 F 104 H 21 H 139/67 92 L - Problem List (1) Congestive heart failure (CHF) SNOMED Code(s): 91000388 ICD Code: I50.9 - HEART FAILURE, UNSPECIFIED Status: Acute Priority: High Current Visit: Yes Qualifiers: Heart failure type: unspecified Heart failure chronicity: acute on chronic Qualified Code(s): I50.9 - Heart failure, unspecified (2) Type 2 diabetes mellitus SNOMED Code(s): 45597451 ICD Code: E11.9 - TYPE 2 DIABETES MELLITUS WITHOUT COMPLICATIONS Status: Chronic Priority: Medium Current Visit: Yes Qualifiers: Diabetes mellitus terminal supervisor insulin use: with terminal supervisor use (3) Hypokalemia SNOMED Code(s): 38650180 ICD Code: E87.6 - HYPOKALEMIA Status: Acute Priority: Medium Current Visit: Yes (4) Elevated troponin I level SNOMED Code(s): 742192230 ICD Code: R77.8 - OTHER SPECIFIED ABNORMALITIES OF PLASMA PROTEINS Status: Acute Priority: Medium Current Visit: Yes Problem List Initiated/Reviewed/Updated: Yes Orders Last 24hrs: Active Orders 24 hr Category Date Time Status Admission Status [Patient Status] [ADT] Routine ADT 11/10/20 20:32 Active Blood Pressure Mgt: Sepsis [RC] Q15MX2 Care 11/10/20 17:22 Active Cardiac Monitoring [RC] CONTINUOUS Care 11/10/20 21:49 Active Communication Order [RC] PER UNIT ROUTINE Care 11/10/20 21:49 Active Diabetes Education [RC] Click to Edit Care 11/10/20 21:49 Active EKG Documentation Completion [RC] ASDIRECTED Care 11/10/20 18:29 Active Intake and Output [RC] QSHIFT Care 11/10/20 21:49 Active Notify Provider Vital Signs [RC] ASDIRECTED Care 11/10/20 21:49 Active Notify Provider [RC] PRN Care 11/10/20 21:49 Active Oxygen Therapy [RC] PRN Care 11/10/20 21:49 Active Pulse Oximetry [RC] CONTINUOUS Care 11/10/20 21:49 Active RT Aerosol Therapy [RC] ASDIRECTED Care 11/10/20 21:49 Active Up With Assistance [RC] ASDIRECTED Care 11/10/20 21:49 Active VTE/DVT Education [RC] Per Unit Routine Care 11/10/20 21:49 Active Vital Signs [RC] Q4H Care 11/10/20 21:49 Active Consistent Carbohydrate Diet [DIET] Diet 11/10/20 Breakfast Active Chest 2V [CR] Stat Exams 11/10/20 17:21 Taken BASIC METABOLIC PANEL,BMP [CHEM] AM Lab 11/11/20 05:11 Ordered CBC WITH AUTO DIFF [HEME] AM Lab 11/11/20 05:11 Ordered CULTURE BLOOD [BC] Urgent Lab 11/10/20 17:40 Received CULTURE BLOOD [BC] Urgent Lab 11/10/20 17:45 Received GLUCOSE POC LAB TO COLLECT JPM [POC] QIDACANDBED Lab 11/11/20 07:30 Ordered LACTIC ACID [CHEM] Routine Lab 11/10/20 21:28 Ordered LACTIC ACID [CHEM] Routine Lab 11/10/20 23:10 Ordered TROPONIN I [CHEM] Routine Lab 11/10/20 23:10 Ordered UA W/MICROSCOPIC [URIN] Urgent Lab 11/10/20 21:49 Results Acetaminophen [TylenoL] Med 11/10/20 21:49 Active 650 mg PO Q4H PRN Acetaminophen/HYDROcodone [[place] 325-5 MG] Med 11/11/20 09:00 Active 1 tab PO DAILY Albuterol [Proventil Neb Soln] Med 11/10/20 21:49 Active 2.5 mg NEB Q4H PRN Albuterol/Ipratropium [DuoNeb 3.0-0.5 MG/3 ML] Med 11/10/20 21:49 Active 3 ml NEB QID PRN Cyclobenzaprine [Flexeril] Med 11/10/20 21:59 Active 10 - 15 mg PO BEDTIME PRN Dextrose 50% in Water Med 11/10/20 21:49 Active 50 ml IVPUSH ASDIRECTED PRN Docusate Sodium [Colace] Med 11/10/20 21:49 Active 100 mg PO BID PRN Enoxaparin [Lovenox] Med 11/10/20 21:49 Active 40 mg SUBCUT DAILY Escitalopram [Lexapro] Med 11/11/20 09:00 Active 10 mg PO DAILY Exenatide Microspheres [Bydureon Pen] Med 11/10/20 21:49 Pending 2 mg SQ WEEKLY Fluticasone Propionate [Flonase] Med 11/11/20 09:00 Active 0 gm NASBOTH DAILY Furosemide [Lasix] Med 11/11/20 09:00 Active 20 mg PO DAILY Glucagon,Human Recombinant [GlucaGen] Med 11/10/20 21:49 Active 1 mg IM ASDIRECTED PRN Insulin Glarg,Human.Rec.Analog [LantUS Solostar] Med 11/10/20 21:49 Hold 14 units SUBCUT Q12H Insulin Lispro [HumaLOG] Med 11/11/20 07:00 Active See Protocol SUBCUT QIDACANDBED Isosorbide Mononitrate [Imdur] Med 11/11/20 09:00 Active 30 mg PO DAILY LORazepam [Ativan] Med 11/10/20 21:49 Active 1 mg IV Q6H PRN Levofloxacin/Dextrose 5%-Water [Levaquin in D5W 750 MG/ Med 11/10/20 17:30 Active 150 ML] 750 mg Premix Bag 1 bag IV Q24H Montelukast [Singulair] Med 11/11/20 21:00 Active 10 mg PO BEDTIME Morphine Med 11/10/20 21:49 Active 2 mg IVPUSH Q2H PRN Nitroglycerin [Nitrostat] Med 11/10/20 21:49 Active 0.4 mg SL ASDIRECTED PRN Ondansetron [Zofran ODT] Med 11/10/20 21:49 Active 4 mg PO Q6H PRN Pantoprazole [ProTONIX] Med 11/11/20 07:30 Active 40 mg PO BIDAC Pramipexole [Mirapex] Med 11/10/20 21:00 Active 2 mg PO BEDTIME Tamsulosin [Flomax] Med 11/11/20 09:00 Active 0.4 mg PO DAILY Tiotropium BR/Olodaterol HCL [Stiolto Respimat] Med 11/11/20 09:00 Active 0 gm INH DAILY Triamcinolone Acetonide [Kenalog 0.1% Crm] Med 11/10/20 21:49 Active 0 gm TOP BID Trospium [San[place]] Med 11/11/20 09:00 Active 20 mg PO DAILY Zolpidem [Ambien] Med 11/10/20 21:00 Active 10 mg PO BEDTIME atorvaSTATin [Lipitor] Med 11/10/20 21:49 Active 20 mg PO BEDTIME bisacodyL [Dulcolax] Med 11/10/20 21:49 Active 5 mg PO DAILY PRN glipiZIDE [Glucotrol] Med 11/11/20 09:00 Active 10 mg PO BID hydroCHLOROthiazide Med 11/11/20 09:00 Active 25 mg PO DAILY lisinopriL [Prinivil] Med 11/11/20 09:00 Active 2.5 mg PO DAILY oxyCODONE Med 11/10/20 21:49 Active 5 mg PO Q4H PRN predniSONE Med 11/11/20 09:00 Active 5 mg PO DAILY traZODone Med 11/10/20 21:00 Active 150 mg PO BEDTIME Blood Culture x2 Reflex Set [OM.PC] Urgent Oth 11/10/20 17:21 Ordered Convert IV to Saline Lock [OM.PC] Routine Oth 11/10/20 22:12 Ordered Severe Sepsis Onset Time [OM.PC] Stat Oth 11/10/20 17:21 Ordered Resuscitation Status Routine Resus Stat 11/10/20 20:37 Ordered EKG 12 Lead [EK] Routine Ther 11/10/20 18:29 Ordered Medication Orders Acetaminophen (Acetaminophen 325 Mg Tab) 650 mg PO Q4H PRN PRN Reason: Pain (Mild 1-3)/fever Hydrocodone Bitart/Acetaminophen (Acetaminophen/Hydrocodone 325-5 Mg Tab) 1 tab PO DAILY [facility] Albuterol (Albuterol 0.083% 2.5 Mg/3 Ml Neb Soln) 2.5 mg NEB Q4H PRN PRN Reason: Shortness Of Breath/wheezing Albuterol/Ipratropium (Albuterol/Ipratropium 3.0-0.5 Mg/3 Ml Neb Soln) 3 ml NEB QID PRN PRN Reason: Shortness Of Breath/wheezing Atorvastatin Calcium (Atorvastatin 20 Mg Tab) 20 mg PO BEDTIME KAYLA Bisacodyl (Bisacodyl 5 Mg Tab) 5 mg PO DAILY PRN PRN Reason: Constipation Cyclobenzaprine HCl (Cyclobenzaprine 10 Mg Tab) 10 - 15 mg PO BEDTIME PRN PRN Reason: Muscle Spasm Dextrose/Water (50% Dextrose In Water 50 Ml Syringe) 50 ml IVPUSH ASDIRECTED PRN PRN Reason: Hypoglycemia Docusate Sodium (Docusate Sodium 100 Mg Cap) 100 mg PO BID PRN PRN Reason: Constipation Enoxaparin Sodium (Enoxaparin 40 Mg/0.4 Ml Syringe) 40 mg SUBCUT DAILY [facility] Escitalopram Oxalate (Escitalopram 10 Mg Tab) 10 mg PO DAILY [facility] Fluticasone Propionate (Fluticasone Propionate Nasal [place] 16 Gm Bottle) 0 gm NASBOTH DAILY [facility] Furosemide (Furosemide 20 Mg Tab) 20 mg PO DAILY [facility] Glipizide (Glipizide 5 Mg Tab) 10 mg PO BID [facility] Glucagon (Glucagon,Human Recombinant 1 Mg Vial) 1 mg IM ASDIRECTED PRN PRN Reason: Hypoglycemia Hydrochlorothiazide (Hydrochlorothiazide 25 Mg Tab) 25 mg PO DAILY [facility] Levofloxacin/Dextrose 750 mg/ (Premix) 150 mls @ 100 mls/hr IV Q24H [facility] Last Admin: 11/10/20 17:50 Dose: 100 mls/hr Documented by: PREILOR Insulin Glargine (Insulin Glargine,Human Rec. Analog 100 Units/Ml 3 Ml Pen) 14 units SUBCUT Q12H [facility] Last Admin: 11/10/20 22:11 Dose: Not Given Documented by: [id number] Insulin Human Lispro (Insulin Lispro 100 Unit/Ml 3 Ml Kwikpen) 0 unit SUBCUT QIDACANDBED KAYLA; Protocol Isosorbide Mononitrate (Isosorbide Mononitrate 30 Mg Tab.Er) 30 mg PO DAILY [facility] Lisinopril (Lisinopril 2.5 Mg Tab) 2.5 mg PO DAILY [facility] Lorazepam (Lorazepam 2 Mg/Ml Sdv) 1 mg IV Q6H PRN PRN Reason: Nausea/Vomiting Montelukast Sodium (Montelukast 10 Mg Tab) 10 mg PO BEDTIME [facility] Morphine Sulfate (Morphine 2 Mg/Ml Syringe) 2 mg IVPUSH Q2H PRN PRN Reason: Pain (severe 7-10) Nitroglycerin (Nitroglycerin 0.4 Mg Tab.Sl) 0.4 mg SL ASDIRECTED PRN PRN Reason: Chest Pain Non-Formulary Medication (Exenatide Microspheres [Bydureon Pen]) 2 mg SQ WEEKLY [facility] Ondansetron HCl (Ondansetron 4 Mg Tab.Dis) 4 mg PO Q6H PRN PRN Reason: Nausea able to take PO Oxycodone HCl (Oxycodone 5 Mg Tab) 5 mg PO Q4H PRN PRN Reason: Pain (moderate 4-6) Pantoprazole Sodium (Pantoprazole 40 Mg Tab.Cr) 40 mg PO BIDAC [facility] Pramipexole Dihydrochloride (Pramipexole 0.5 Mg Tab) 2 mg PO BEDTIME [facility] Prednisone (Prednisone 5 Mg Tab) 5 mg PO DAILY [facility] Tamsulosin HCl (Tamsulosin 0.4 Mg Cap.Er) 0.4 mg PO DAILY [facility] Trazodone HCl (Trazodone 50 Mg Tab) 150 mg PO BEDTIME [facility] Triamcinolone Acetonide (Triamcinolone Acetonide 0.1% Crm 80 Gm Tube) 0 gm TOP BID [facility] Trospium (Trospium 20 Mg Tab) 20 mg PO DAILY [facility] Zolpidem Tartrate (Zolpidem 5 Mg Tab) 10 mg PO BEDTIME [facility] Assessment/Plan Comment:: Assessment/Plan Comment:: ASSESSMENT AND PLAN DIASTOLIC CONGESTIVE HEART FAILURE-progressive increase in peripheral edema over the last several weeks to one month, increased shortness of breath over the last week. -Bumex 2 mg IV given in the emergency department -Lasix 20 mg in am -saline lock IV TYPE 2 DIABETES MELLITUS -Continue usual dose of long-acting insulin- Lantus 14 units subcut. every 12 hours -before meals and at bedtime glucometers -Low-dose sliding scale Humalog -consistent carb diet HYPOKALEMIA- Potassium noted to be 3.3, given IV Potassium 20 meq in ER -recheck Potassium in am. ELEVATED TROPONIN-this is most likely related to CHF, Troponin 0.177 in ER, recheck at 2300 now 0.152 -will recheck in am MAINTENANCE ISSUES -DVT prophylaxis; Lovenox 40 mg subcu daily -GI prophylaxis; continue PPI therapy -Robin catheter; not indicated -Nutrition- consistent carb diet -Nicotine dependence; not required CODE STATUS-FULL CODE ADMISSION STATUS-patient will be admitted to inpatient status, expect at least a 2 night hospital stay for evaluation and management of problems as outlined above. At the time of this admission I do not reasonably expected evaluation and management of this problem will require more than a 96 hour hospital stay. DISPOSITION-anticipate discharge to home after the hospital stay. PRIMARY CARE PROVIDER-Dr. Сергей Gloria HOSPITALIST - Dr. Montesinos - Mortality Measure Prognosis:: Good - Mortality Measure Prognosis:: Good
[2020-11-10] MEDS: traZODone 50 MG Tab PO SCH (22:21)
[2020-11-10] MEDS: atorvaSTATin 20 MG Tab PO SCH (22:21)
[2020-11-10] MEDS: Zolpidem 5 MG Tab PO SCH (22:21)
[2020-11-10] MEDS: Triamcinolone Acetonide 0.1% Crm 80 GM Tube TOP SCH (22:58)
[2020-11-10] MEDS: Pramipexole 0.5 MG Tab PO SCH (23:16)
[2020-11-11] MEDS ORDERED: Potassium Chloride 20 MEQ in Premix Bag 1 BAG IV ONE (05:40)
[2020-11-11] MEDS ORDERED: Insulin Lispro 100 Unit/ML 3 ML KwikPen SUBCUT SCH (07:00)
[2020-11-11] MEDS: Pantoprazole 40 MG Tab.CR PO SCH ×2 (08:20→16:56)
[2020-11-11] MEDS: Tiotropium BR/Olodaterol HCL 4 GM Inhalation Spray 2.5mcg/1 dose; 10 doses INH SCH (08:43)
[2020-11-11] MEDS ORDERED: Tiotropium BR/Olodaterol HCL 4 GM Inhalation Spray 2.5mcg/1 dose; 10 doses INH SCH (09:00)
[2020-11-11] MEDS ORDERED: Furosemide 20 MG Tab PO SCH (09:00)
[2020-11-11] MEDS ORDERED: Escitalopram 10 MG Tab PO SCH (09:00)
[2020-11-11] MEDS ORDERED: Potassium Chloride 20 MEQ Tab.ER PO ONE ×2 (09:00→18:26)
[2020-11-11] MEDS: Hydrochlorothiazide 25 MG Tab PO SCH (09:04)
[2020-11-11] MEDS: Isosorbide Mononitrate 30 MG Tab.ER PO SCH (09:07)
[2020-11-11] MEDS: Tamsulosin 0.4 MG Cap.ER PO SCH (09:07)
[2020-11-11] MEDS: Lisinopril 2.5 MG Tab PO SCH (09:11)
[2020-11-11] MEDS: Trospium 20 MG Tab PO SCH (09:12)
[2020-11-11] MEDS: Acetaminophen/HYDROcodone 325-5 MG Tab PO SCH (09:13)
[2020-11-11] MEDS: predniSONE 5 MG Tab PO SCH (09:13)
[2020-11-11] MEDS: glipiZIDE 5 MG Tab PO SCH ×3 (09:13→16:55)
[2020-11-11] MEDS: Triamcinolone Acetonide 0.1% Crm 80 GM Tube TOP SCH ×2 (09:14→21:21)
[2020-11-11] MEDS: Fluticasone Propionate Nasal Spray 16 GM Bottle NASBOTH SCH (09:14)
[2020-11-11] MEDS: Insulin Glargine,Human Rec. Analog 100 Units/ML 3 ML Pen SUBCUT SCH ×2 (09:58→21:19)
--- NOTE | 2020-11-11 10:47 | PCM.PN ---
- General Info Date of Service: 11/11/20 Subjective Update: No acute events overnight since admission. He still feels short of breath and thinks this is about the same as it was yesterday. He did have an excellent response to diuresis yesterday. Lower extremity edema has improved. He does not have any chest pain or nausea. He is quite weak and required assistance to get out of bed and get to the chair. Potassium level is slightly lower today. Functional Status: Reports: Pain Controlled, Tolerating Diet - Review of Systems General: Reports: Weakness Pulmonary: Reports: Shortness of Breath - Patient Data Vitals - Most Recent: Last Vital Signs Temp 36.5 C 11/11/20 07:00 Pulse 68 11/11/20 07:00 Resp 18 11/11/20 07:00 BP 130/64 11/11/20 09:11 Pulse Ox 93 L 11/11/20 07:24 Weight - Most Recent: 111.2 kg I&O - Last 24 Hours: Intake & Output 11/10/20 11/11/20 11/11/20 22:59 06:59 14:59 Intake Total 280 Output Total 400 6045 600 Balance -592 -9757 -910 Lab Results Last 24 Hours: Laboratory Results - last 24 hr 11/10/20 11/10/20 11/10/20 Range/Units 17:40 17:40 17:40 WBC 14.0 H (4.5-11.0) K/uL RBC 4.79 (4.30-5.90) M/uL Hgb 14.0 (12.0-15.0) g/dL Hct 41.1 (40.0-54.0) % MCV 86 (80-98) fL MCH 29 (27-31) pg MCHC 34 (32-36) % Plt Count 193 (150-400) K/uL Neut % (Auto) 79 H (36-66) % Lymph % (Auto) 11 L (24-44) % [place] % (Auto) 9 H (2-6) % Eos % (Auto) 0 L (2-4) % Baso % (Auto) 0 (0-1) % Sodium 130 L (140-148) mmol/L Potassium 3.3 L (3.6-5.2) mmol/L Chloride 87 L (100-108) mmol/L Carbon Dioxide 31 (21-32) mmol/L Anion Gap 15.3 H (5.0-14.0) mmol/L BUN 19 H (7-18) mg/dL Creatinine 1.2 (0.8-1.3) mg/dL Est Cr Clr Drug Dosing 39.18 mL/min Estimated GFR (MDRD) 59 L (>60) Glucose 71 L (74-106) mg/dL POC Glucose (74-106) MG/DL Lactic Acid 2.5 H (0.4-2.0) mmol/L Calcium 9.2 (8.5-10.1) mg/dL Total Bilirubin 0.5 D (0.2-1.0) mg/dL AST 19 (15-37) U/L ALT 21 (12-78) U/L Alkaline Phosphatase 135 H (46-116) U/L Troponin I 0.177 H* (0.000-0.056) ng/mL C-Reactive Protein < 0.05 (0.0-0.3) mg/dL NT-Pro-B Natriuret Pep (5-450) pg/mL Total Protein 7.0 (6.4-8.2) g/dL Albumin 3.5 (3.4-5.0) g/dL Globulin 3.5 (2.3-3.5) g/dL Albumin/Globulin Ratio 1.0 L (1.2-2.2) Procalcitonin ng/mL Urine Color (YELLOW) Urine Appearance (CLEAR) Urine pH (5.0-8.0) Ur Specific [place] (1.008-1.030) Urine Protein (NEGATIVE) mg/dL Urine Glucose (UA) (NEGATIVE) mg/dL Urine Ketones (NEGATIVE) mg/dL Urine Occult Blood (NEGATIVE) Urine Nitrite (NEGATIVE) Urine Bilirubin (NEGATIVE) Urine Urobilinogen (0.2-1.0) EU/dL Ur Leukocyte Esterase (NEGATIVE) Urine RBC (0-5) Urine WBC (0-5) Ur Epithelial Cells Amorphous Sediment Urine Bacteria Urine Mucus Influenza Type A RNA (NEGATIVE) RSV RNA (INAAT) (NEGATIVE) Influenza Type B RNA (NEGATIVE) SARS-CoV-2 RNA (JAN) (NEGATIVE) 11/10/20 11/10/20 11/10/20 Range/Units 17:40 18:37 19:21 WBC (4.5-11.0) K/uL RBC (4.30-5.90) M/uL Hgb (12.0-15.0) g/dL Hct (40.0-54.0) % MCV (80-98) fL MCH (27-31) pg MCHC (32-36) % Plt Count (150-400) K/uL Neut % (Auto) (36-66) % Lymph % (Auto) (24-44) % [place] % (Auto) (2-6) % Eos % (Auto) (2-4) % Baso % (Auto) (0-1) % Sodium (140-148) mmol/L Potassium (3.6-5.2) mmol/L Chloride (100-108) mmol/L Carbon Dioxide (21-32) mmol/L Anion Gap (5.0-14.0) mmol/L BUN (7-18) mg/dL Creatinine (0.8-1.3) mg/dL Est Cr Clr Drug Dosing mL/min Estimated GFR (MDRD) (>60) Glucose (74-106) mg/dL POC Glucose (74-106) MG/DL Lactic Acid (0.4-2.0) mmol/L Calcium (8.5-10.1) mg/dL Total Bilirubin (0.2-1.0) mg/dL AST (15-37) U/L ALT (12-78) U/L Alkaline Phosphatase (46-116) U/L Troponin I (0.000-0.056) ng/mL C-Reactive Protein (0.0-0.3) mg/dL NT-Pro-B Natriuret Pep 1135 H (5-450) pg/mL Total Protein (6.4-8.2) g/dL Albumin (3.4-5.0) g/dL Globulin (2.3-3.5) g/dL Albumin/Globulin Ratio (1.2-2.2) Procalcitonin < 0.05 ng/mL Urine Color (YELLOW) Urine Appearance (CLEAR) Urine pH (5.0-8.0) Ur Specific [place] (1.008-1.030) Urine Protein (NEGATIVE) mg/dL Urine Glucose (UA) (NEGATIVE) mg/dL Urine Ketones (NEGATIVE) mg/dL Urine Occult Blood (NEGATIVE) Urine Nitrite (NEGATIVE) Urine Bilirubin (NEGATIVE) Urine Urobilinogen (0.2-1.0) EU/dL Ur Leukocyte Esterase (NEGATIVE) Urine RBC (0-5) Urine WBC (0-5) Ur Epithelial Cells Amorphous Sediment Urine Bacteria Urine Mucus Influenza Type A RNA Negative (NEGATIVE) RSV RNA (INAAT) Negative (NEGATIVE) Influenza Type B RNA Negative (NEGATIVE) SARS-CoV-2 RNA (JAN) Negative (NEGATIVE) 11/10/20 11/10/20 11/10/20 Range/Units 21:49 23:10 23:10 WBC (4.5-11.0) K/uL RBC (4.30-5.90) M/uL Hgb (12.0-15.0) g/dL Hct (40.0-54.0) % MCV (80-98) fL MCH (27-31) pg MCHC (32-36) % Plt Count (150-400) K/uL Neut % (Auto) (36-66) % Lymph % (Auto) (24-44) % [place] % (Auto) (2-6) % Eos % (Auto) (2-4) % Baso % (Auto) (0-1) % Sodium (140-148) mmol/L Potassium (3.6-5.2) mmol/L Chloride (100-108) mmol/L Carbon Dioxide (21-32) mmol/L Anion Gap (5.0-14.0) mmol/L BUN (7-18) mg/dL Creatinine (0.8-1.3) mg/dL Est Cr Clr Drug Dosing mL/min Estimated GFR (MDRD) (>60) Glucose (74-106) mg/dL POC Glucose (74-106) MG/DL Lactic Acid 1.5 (0.4-2.0) mmol/L Calcium (8.5-10.1) mg/dL Total Bilirubin (0.2-1.0) mg/dL AST (15-37) U/L ALT (12-78) U/L Alkaline Phosphatase (46-116) U/L Troponin I 0.152 H* (0.000-0.056) ng/mL C-Reactive Protein (0.0-0.3) mg/dL NT-Pro-B Natriuret Pep (5-450) pg/mL Total Protein (6.4-8.2) g/dL Albumin (3.4-5.0) g/dL Globulin (2.3-3.5) g/dL Albumin/Globulin Ratio (1.2-2.2) Procalcitonin ng/mL Urine Color Yellow (YELLOW) Urine Appearance Clear (CLEAR) Urine pH 7.5 (5.0-8.0) Ur Specific [place] 1.020 (1.008-1.030) Urine Protein Negative (NEGATIVE) mg/dL Urine Glucose (UA) Negative (NEGATIVE) mg/dL Urine Ketones Negative (NEGATIVE) mg/dL Urine Occult Blood Trace-intact H (NEGATIVE) Urine Nitrite Negative (NEGATIVE) Urine Bilirubin Negative (NEGATIVE) Urine Urobilinogen 0.2 (0.2-1.0) EU/dL Ur Leukocyte Esterase Small H (NEGATIVE) Urine RBC 0-5 (0-5) Urine WBC 5-10 H (0-5) Ur Epithelial Cells Rare Amorphous Sediment Occasional Urine Bacteria Occasional Urine Mucus Not seen Influenza Type A RNA (NEGATIVE) RSV RNA (INAAT) (NEGATIVE) Influenza Type B RNA (NEGATIVE) SARS-CoV-2 RNA (JAN) (NEGATIVE) 11/11/20 11/11/20 11/11/20 Range/Units 00:21 04:10 04:10 WBC 10.6 (4.5-11.0) K/uL RBC 4.42 (4.30-5.90) M/uL Hgb 13.1 (12.0-15.0) g/dL Hct 38.0 L (40.0-54.0) % MCV 86 (80-98) fL MCH 30 (27-31) pg MCHC 35 (32-36) % Plt Count 163 (150-400) K/uL Neut % (Auto) 70 H (36-66) % Lymph % (Auto) 17 L (24-44) % [place] % (Auto) 13 H (2-6) % Eos % (Auto) 0 L (2-4) % Baso % (Auto) 0 (0-1) % Sodium 133 L (140-148) mmol/L Potassium 2.9 L* (3.6-5.2) mmol/L Chloride 91 L (100-108) mmol/L Carbon Dioxide 33 H (21-32) mmol/L Anion Gap 11.9 (5.0-14.0) mmol/L BUN 17 (7-18) mg/dL Creatinine 1.2 (0.8-1.3) mg/dL Est Cr Clr Drug Dosing 40.83 mL/min Estimated GFR (MDRD) 59 L (>60) Glucose 84 (74-106) mg/dL POC Glucose 97 (74-106) MG/DL Lactic Acid (0.4-2.0) mmol/L Calcium 8.9 (8.5-10.1) mg/dL Total Bilirubin (0.2-1.0) mg/dL AST (15-37) U/L ALT (12-78) U/L Alkaline Phosphatase (46-116) U/L Troponin I 0.134 H* (0.000-0.056) ng/mL C-Reactive Protein (0.0-0.3) mg/dL NT-Pro-B Natriuret Pep (5-450) pg/mL Total Protein (6.4-8.2) g/dL Albumin (3.4-5.0) g/dL Globulin (2.3-3.5) g/dL Albumin/Globulin Ratio (1.2-2.2) Procalcitonin ng/mL Urine Color (YELLOW) Urine Appearance (CLEAR) Urine pH (5.0-8.0) Ur Specific [place] (1.008-1.030) Urine Protein (NEGATIVE) mg/dL Urine Glucose (UA) (NEGATIVE) mg/dL Urine Ketones (NEGATIVE) mg/dL Urine Occult Blood (NEGATIVE) Urine Nitrite (NEGATIVE) Urine Bilirubin (NEGATIVE) Urine Urobilinogen (0.2-1.0) EU/dL Ur Leukocyte Esterase (NEGATIVE) Urine RBC (0-5) Urine WBC (0-5) Ur Epithelial Cells Amorphous Sediment Urine Bacteria Urine Mucus Influenza Type A RNA (NEGATIVE) RSV RNA (INAAT) (NEGATIVE) Influenza Type B RNA (NEGATIVE) SARS-CoV-2 RNA (JAN) (NEGATIVE) 11/11/20 Range/Units 07:30 WBC (4.5-11.0) K/uL RBC (4.30-5.90) M/uL Hgb (12.0-15.0) g/dL Hct (40.0-54.0) % MCV (80-98) fL MCH (27-31) pg MCHC (32-36) % Plt Count (150-400) K/uL Neut % (Auto) (36-66) % Lymph % (Auto) (24-44) % [place] % (Auto) (2-6) % Eos % (Auto) (2-4) % Baso % (Auto) (0-1) % Sodium (140-148) mmol/L Potassium (3.6-5.2) mmol/L Chloride (100-108) mmol/L Carbon Dioxide (21-32) mmol/L Anion Gap (5.0-14.0) mmol/L BUN (7-18) mg/dL Creatinine (0.8-1.3) mg/dL Est Cr Clr Drug Dosing mL/min Estimated GFR (MDRD) (>60) Glucose (74-106) mg/dL POC Glucose 87 (74-106) MG/DL Lactic Acid (0.4-2.0) mmol/L Calcium (8.5-10.1) mg/dL Total Bilirubin (0.2-1.0) mg/dL AST (15-37) U/L ALT (12-78) U/L Alkaline Phosphatase (46-116) U/L Troponin I (0.000-0.056) ng/mL C-Reactive Protein (0.0-0.3) mg/dL NT-Pro-B Natriuret Pep (5-450) pg/mL Total Protein (6.4-8.2) g/dL Albumin (3.4-5.0) g/dL Globulin (2.3-3.5) g/dL Albumin/Globulin Ratio (1.2-2.2) Procalcitonin ng/mL Urine Color (YELLOW) Urine Appearance (CLEAR) Urine pH (5.0-8.0) Ur Specific [place] (1.008-1.030) Urine Protein (NEGATIVE) mg/dL Urine Glucose (UA) (NEGATIVE) mg/dL Urine Ketones (NEGATIVE) mg/dL Urine Occult Blood (NEGATIVE) Urine Nitrite (NEGATIVE) Urine Bilirubin (NEGATIVE) Urine Urobilinogen (0.2-1.0) EU/dL Ur Leukocyte Esterase (NEGATIVE) Urine RBC (0-5) Urine WBC (0-5) Ur Epithelial Cells Amorphous Sediment Urine Bacteria Urine Mucus Influenza Type A RNA (NEGATIVE) RSV RNA (INAAT) (NEGATIVE) Influenza Type B RNA (NEGATIVE) SARS-CoV-2 RNA (JAN) (NEGATIVE) Med Orders - Current: Current Medications Acetaminophen (Acetaminophen 325 Mg Tab) 650 mg PO Q4H PRN PRN Reason: Pain (Mild 1-3)/fever Hydrocodone Bitart/Acetaminophen (Acetaminophen/Hydrocodone 325-5 Mg Tab) 1 tab PO DAILY [facility] Last Admin: 11/11/20 09:13 Dose: 1 tab Documented by: Albuterol (Albuterol 0.083% 2.5 Mg/3 Ml Neb Soln) 2.5 mg NEB Q4H PRN PRN Reason: Shortness Of Breath/wheezing Albuterol/Ipratropium (Albuterol/Ipratropium 3.0-0.5 Mg/3 Ml Neb Soln) 3 ml NEB QID PRN PRN Reason: Shortness Of Breath/wheezing Last Admin: 11/11/20 10:07 Dose: 3 ml Documented by: Atorvastatin Calcium (Atorvastatin 20 Mg Tab) 20 mg PO BEDTIME [facility] Last Admin: 11/10/20 22:21 Dose: 20 mg Documented by: Bisacodyl (Bisacodyl 5 Mg Tab) 5 mg PO DAILY PRN PRN Reason: Constipation Bumetanide (Bumetanide 1 Mg/4 Ml Mdv) 2 mg IVPUSH ONETIME ONE Stop: 11/11/20 10:46 Cyclobenzaprine HCl (Cyclobenzaprine 10 Mg Tab) 10 - 15 mg PO BEDTIME PRN PRN Reason: Muscle Spasm Dextrose/Water (50% Dextrose In Water 50 Ml Syringe) 50 ml IVPUSH ASDIRECTED PRN PRN Reason: Hypoglycemia Docusate Sodium (Docusate Sodium 100 Mg Cap) 100 mg PO BID PRN PRN Reason: Constipation Enoxaparin Sodium (Enoxaparin 40 Mg/0.4 Ml Syringe) 40 mg SUBCUT BEDTIME [facility] Escitalopram Oxalate (Escitalopram 10 Mg Tab) 10 mg PO DAILY [facility] Last Admin: 11/11/20 09:12 Dose: 10 mg Documented by: Fluticasone Propionate (Fluticasone Propionate Nasal [place] 16 Gm Bottle) 0 gm NASBOTH DAILY [facility] Last Admin: 11/11/20 09:14 Dose: 2 sprays Documented by: Glipizide (Glipizide 5 Mg Tab) 5 mg PO BIDAC [facility] Glucagon (Glucagon,Human Recombinant 1 Mg Vial) 1 mg IM ASDIRECTED PRN PRN Reason: Hypoglycemia Hydrochlorothiazide (Hydrochlorothiazide 25 Mg Tab) 25 mg PO DAILY [facility] Last Admin: 11/11/20 09:04 Dose: 25 mg Documented by: Insulin Glargine (Insulin Glargine,Human Rec. Analog 100 Units/Ml 3 Ml Pen) 14 units SUBCUT Q12H [facility] Last Admin: 11/11/20 09:58 Dose: 14 units Documented by: Isosorbide Mononitrate (Isosorbide Mononitrate 30 Mg Tab.Er) 30 mg PO DAILY [facility] Last Admin: 11/11/20 09:07 Dose: 30 mg Documented by: Lisinopril (Lisinopril 2.5 Mg Tab) 2.5 mg PO DAILY [facility] Last Admin: 11/11/20 09:11 Dose: 2.5 mg Documented by: Lorazepam (Lorazepam 2 Mg/Ml Sdv) 1 mg IV Q6H PRN PRN Reason: Nausea/Vomiting Montelukast Sodium (Montelukast 10 Mg Tab) 10 mg PO BEDTIME [facility] Morphine Sulfate (Morphine 2 Mg/Ml Syringe) 2 mg IVPUSH Q2H PRN PRN Reason: Pain (severe 7-10) Nitroglycerin (Nitroglycerin 0.4 Mg Tab.Sl) 0.4 mg SL ASDIRECTED PRN PRN Reason: Chest Pain Ondansetron HCl (Ondansetron 4 Mg Tab.Dis) 4 mg PO Q6H PRN PRN Reason: Nausea able to take PO Oxycodone HCl (Oxycodone 5 Mg Tab) 5 mg PO Q4H PRN PRN Reason: Pain (moderate 4-6) Pantoprazole Sodium (Pantoprazole 40 Mg Tab.Cr) 40 mg PO BIDAC [facility] Last Admin: 11/11/20 08:20 Dose: 40 mg Documented by: Pramipexole Dihydrochloride (Pramipexole 0.5 Mg Tab) 2 mg PO BEDTIME [facility] Last Admin: 11/10/20 23:16 Dose: 2 mg Documented by: Prednisone (Prednisone 5 Mg Tab) 5 mg PO DAILY [facility] Last Admin: 11/11/20 09:13 Dose: 5 mg Documented by: Tamsulosin HCl (Tamsulosin 0.4 Mg Cap.Er) 0.4 mg PO DAILY [facility] Last Admin: 11/11/20 09:07 Dose: 0.4 mg Documented by: Trazodone HCl (Trazodone 50 Mg Tab) 150 mg PO BEDTIME [facility] Last Admin: 11/10/20 22:21 Dose: 150 mg Documented by: Triamcinolone Acetonide (Triamcinolone Acetonide 0.1% Crm 80 Gm Tube) 0 gm TOP BID [facility] Last Admin: 11/11/20 09:14 Dose: 1 applic Documented by: Trospium (Trospium 20 Mg Tab) 20 mg PO DAILY [facility] Last Admin: 11/11/20 09:12 Dose: 20 mg Documented by: Zolpidem Tartrate (Zolpidem 5 Mg Tab) 10 mg PO BEDTIME [facility] Last Admin: 11/10/20 22:21 Dose: 10 mg Documented by: Discontinued Medications Bumetanide (Bumetanide 2.5 Mg/10 Ml Mdv) 2 mg IVPUSH ONETIME ONE Stop: 11/10/20 19:49 Last Admin: 11/10/20 20:14 Dose: 2 mg Documented by: Enoxaparin Sodium (Enoxaparin 40 Mg/0.4 Ml Syringe) 40 mg SUBCUT DAILY [facility] Last Admin: 11/10/20 22:22 Dose: 40 mg Documented by: Furosemide (Furosemide 20 Mg Tab) 20 mg PO DAILY [facility] Glipizide (Glipizide 5 Mg Tab) 10 mg PO BID [facility] Last Admin: 11/11/20 09:17 Dose: 5 mg Documented by: Lactated Ringer's (Ringers, Lactated) 1,000 mls @ 500 mls/hr IV ASDIRECTED [facility] Last Admin: 11/10/20 17:49 Dose: 500 mls/hr Documented by: Levofloxacin/Dextrose 750 mg/ (Premix) 150 mls @ 100 mls/hr IV Q24H [facility] Last Admin: 11/10/20 17:50 Dose: 100 mls/hr Documented by: Potassium Chloride 20 meq/ (Premix) 100 mls @ 50 mls/hr IV ONETIME ONE Stop: 11/10/20 21:49 Last Admin: 11/10/20 20:15 Dose: 50 mls/hr Documented by: Potassium Chloride 20 meq/ (Premix) 100 mls @ 50 mls/hr IV ONETIME ONE Stop: 11/11/20 07:39 Last Admin: 11/11/20 06:04 Dose: 50 mls/hr Documented by: Insulin Human Lispro (Insulin Lispro 100 Unit/Ml 3 Ml Kwikpen) 0 unit SUBCUT QIDACANDBED [facility]; Protocol Last Admin: 11/11/20 08:19 Dose: Not Given Documented by: Lidocaine HCl (Lidocaine 1% 5 Ml Sdv) 5 ml INJECT ONETIME ONE Stop: 11/10/20 20:08 Last Admin: 11/10/20 20:16 Dose: 2 ml Documented by: Lidocaine HCl (Lidocaine 1% 5 Ml Sdv) 2 ml INJECT ONETIME ONE Stop: 11/11/20 05:43 Last Admin: 11/11/20 06:05 Dose: 2 ml Documented by: Non-Formulary Medication (Exenatide Microspheres [Bydureon Pen]) 2 mg SQ WEEKLY [facility] Potassium Chloride (Potassium Chloride 20 Meq Tab.Er) 40 meq PO ONETIME ONE Stop: 11/11/20 09:01 Last Admin: 11/11/20 09:11 Dose: 40 meq Documented by: - Exam Quality Assessment: No: Supplemental Oxygen General: Alert, Oriented, Cooperative, No Acute Distress Lungs: Clear to Auscultation, Normal Respiratory Effort Cardiovascular: Irregular Rhythm, Tachycardia GI/Abdominal Exam: Soft, No Distention Extremities: Pedal Edema (mild bilateral ankle edema L>R). No: Increased Warmth Skin: Warm, Dry Psy/Mental Status: Alert, Normal Affect - Patient Data Lab Results Last 24 hrs: Laboratory Results - last 24 hr 11/10/20 11/10/20 11/10/20 Range/Units 17:40 17:40 17:40 WBC 14.0 H (4.5-11.0) K/uL RBC 4.79 (4.30-5.90) M/uL Hgb 14.0 (12.0-15.0) g/dL Hct 41.1 (40.0-54.0) % MCV 86 (80-98) fL MCH 29 (27-31) pg MCHC 34 (32-36) % Plt Count 193 (150-400) K/uL Neut % (Auto) 79 H (36-66) % Lymph % (Auto) 11 L (24-44) % [place] % (Auto) 9 H (2-6) % Eos % (Auto) 0 L (2-4) % Baso % (Auto) 0 (0-1) % Sodium 130 L (140-148) mmol/L Potassium 3.3 L (3.6-5.2) mmol/L Chloride 87 L (100-108) mmol/L Carbon Dioxide 31 (21-32) mmol/L Anion Gap 15.3 H (5.0-14.0) mmol/L BUN 19 H (7-18) mg/dL Creatinine 1.2 (0.8-1.3) mg/dL Est Cr Clr Drug Dosing 39.18 mL/min Estimated GFR (MDRD) 59 L (>60) Glucose 71 L (74-106) mg/dL POC Glucose (74-106) MG/DL Lactic Acid 2.5 H (0.4-2.0) mmol/L Calcium 9.2 (8.5-10.1) mg/dL Total Bilirubin 0.5 D (0.2-1.0) mg/dL AST 19 (15-37) U/L ALT 21 (12-78) U/L Alkaline Phosphatase 135 H (46-116) U/L Troponin I 0.177 H* (0.000-0.056) ng/mL C-Reactive Protein < 0.05 (0.0-0.3) mg/dL NT-Pro-B Natriuret Pep (5-450) pg/mL Total Protein 7.0 (6.4-8.2) g/dL Albumin 3.5 (3.4-5.0) g/dL Globulin 3.5 (2.3-3.5) g/dL Albumin/Globulin Ratio 1.0 L (1.2-2.2) Procalcitonin ng/mL Urine Color (YELLOW) Urine Appearance (CLEAR) Urine pH (5.0-8.0) Ur Specific [place] (1.008-1.030) Urine Protein (NEGATIVE) mg/dL Urine Glucose (UA) (NEGATIVE) mg/dL Urine Ketones (NEGATIVE) mg/dL Urine Occult Blood (NEGATIVE) Urine Nitrite (NEGATIVE) Urine Bilirubin (NEGATIVE) Urine Urobilinogen (0.2-1.0) EU/dL Ur Leukocyte Esterase (NEGATIVE) Urine RBC (0-5) Urine WBC (0-5) Ur Epithelial Cells Amorphous Sediment Urine Bacteria Urine Mucus Influenza Type A RNA (NEGATIVE) RSV RNA (INAAT) (NEGATIVE) Influenza Type B RNA (NEGATIVE) SARS-CoV-2 RNA (JAN) (NEGATIVE) 11/10/20 11/10/20 11/10/20 Range/Units 17:40 18:37 19:21 WBC (4.5-11.0) K/uL RBC (4.30-5.90) M/uL Hgb (12.0-15.0) g/dL Hct (40.0-54.0) % MCV (80-98) fL MCH (27-31) pg MCHC (32-36) % Plt Count (150-400) K/uL Neut % (Auto) (36-66) % Lymph % (Auto) (24-44) % [place] % (Auto) (2-6) % Eos % (Auto) (2-4) % Baso % (Auto) (0-1) % Sodium (140-148) mmol/L Potassium (3.6-5.2) mmol/L Chloride (100-108) mmol/L Carbon Dioxide (21-32) mmol/L Anion Gap (5.0-14.0) mmol/L BUN (7-18) mg/dL Creatinine (0.8-1.3) mg/dL Est Cr Clr Drug Dosing mL/min Estimated GFR (MDRD) (>60) Glucose (74-106) mg/dL POC Glucose (74-106) MG/DL Lactic Acid (0.4-2.0) mmol/L Calcium (8.5-10.1) mg/dL Total Bilirubin (0.2-1.0) mg/dL AST (15-37) U/L ALT (12-78) U/L Alkaline Phosphatase (46-116) U/L Troponin I (0.000-0.056) ng/mL C-Reactive Protein (0.0-0.3) mg/dL NT-Pro-B Natriuret Pep 1135 H (5-450) pg/mL Total Protein (6.4-8.2) g/dL Albumin (3.4-5.0) g/dL Globulin (2.3-3.5) g/dL Albumin/Globulin Ratio (1.2-2.2) Procalcitonin < 0.05 ng/mL Urine Color (YELLOW) Urine Appearance (CLEAR) Urine pH (5.0-8.0) Ur Specific [place] (1.008-1.030) Urine Protein (NEGATIVE) mg/dL Urine Glucose (UA) (NEGATIVE) mg/dL Urine Ketones (NEGATIVE) mg/dL Urine Occult Blood (NEGATIVE) Urine Nitrite (NEGATIVE) Urine Bilirubin (NEGATIVE) Urine Urobilinogen (0.2-1.0) EU/dL Ur Leukocyte Esterase (NEGATIVE) Urine RBC (0-5) Urine WBC (0-5) Ur Epithelial Cells Amorphous Sediment Urine Bacteria Urine Mucus Influenza Type A RNA Negative (NEGATIVE) RSV RNA (INAAT) Negative (NEGATIVE) Influenza Type B RNA Negative (NEGATIVE) SARS-CoV-2 RNA (JAN) Negative (NEGATIVE) 11/10/20 11/10/20 11/10/20 Range/Units 21:49 23:10 23:10 WBC (4.5-11.0) K/uL RBC (4.30-5.90) M/uL Hgb (12.0-15.0) g/dL Hct (40.0-54.0) % MCV (80-98) fL MCH (27-31) pg MCHC (32-36) % Plt Count (150-400) K/uL Neut % (Auto) (36-66) % Lymph % (Auto) (24-44) % [place] % (Auto) (2-6) % Eos % (Auto) (2-4) % Baso % (Auto) (0-1) % Sodium (140-148) mmol/L Potassium (3.6-5.2) mmol/L Chloride (100-108) mmol/L Carbon Dioxide (21-32) mmol/L Anion Gap (5.0-14.0) mmol/L BUN (7-18) mg/dL Creatinine (0.8-1.3) mg/dL Est Cr Clr Drug Dosing mL/min Estimated GFR (MDRD) (>60) Glucose (74-106) mg/dL POC Glucose (74-106) MG/DL Lactic Acid 1.5 (0.4-2.0) mmol/L Calcium (8.5-10.1) mg/dL Total Bilirubin (0.2-1.0) mg/dL AST (15-37) U/L ALT (12-78) U/L Alkaline Phosphatase (46-116) U/L Troponin I 0.152 H* (0.000-0.056) ng/mL C-Reactive Protein (0.0-0.3) mg/dL NT-Pro-B Natriuret Pep (5-450) pg/mL Total Protein (6.4-8.2) g/dL Albumin (3.4-5.0) g/dL Globulin (2.3-3.5) g/dL Albumin/Globulin Ratio (1.2-2.2) Procalcitonin ng/mL Urine Color Yellow (YELLOW) Urine Appearance Clear (CLEAR) Urine pH 7.5 (5.0-8.0) Ur Specific [place] 1.020 (1.008-1.030) Urine Protein Negative (NEGATIVE) mg/dL Urine Glucose (UA) Negative (NEGATIVE) mg/dL Urine Ketones Negative (NEGATIVE) mg/dL Urine Occult Blood Trace-intact H (NEGATIVE) Urine Nitrite Negative (NEGATIVE) Urine Bilirubin Negative (NEGATIVE) Urine Urobilinogen 0.2 (0.2-1.0) EU/dL Ur Leukocyte Esterase Small H (NEGATIVE) Urine RBC 0-5 (0-5) Urine WBC 5-10 H (0-5) Ur Epithelial Cells Rare Amorphous Sediment Occasional Urine Bacteria Occasional Urine Mucus Not seen Influenza Type A RNA (NEGATIVE) RSV RNA (INAAT) (NEGATIVE) Influenza Type B RNA (NEGATIVE) SARS-CoV-2 RNA (JAN) (NEGATIVE) 11/11/20 11/11/20 11/11/20 Range/Units 00:21 04:10 04:10 WBC 10.6 (4.5-11.0) K/uL RBC 4.42 (4.30-5.90) M/uL Hgb 13.1 (12.0-15.0) g/dL Hct 38.0 L (40.0-54.0) % MCV 86 (80-98) fL MCH 30 (27-31) pg MCHC 35 (32-36) % Plt Count 163 (150-400) K/uL Neut % (Auto) 70 H (36-66) % Lymph % (Auto) 17 L (24-44) % [place] % (Auto) 13 H (2-6) % Eos % (Auto) 0 L (2-4) % Baso % (Auto) 0 (0-1) % Sodium 133 L (140-148) mmol/L Potassium 2.9 L* (3.6-5.2) mmol/L Chloride 91 L (100-108) mmol/L Carbon Dioxide 33 H (21-32) mmol/L Anion Gap 11.9 (5.0-14.0) mmol/L BUN 17 (7-18) mg/dL Creatinine 1.2 (0.8-1.3) mg/dL Est Cr Clr Drug Dosing 40.83 mL/min Estimated GFR (MDRD) 59 L (>60) Glucose 84 (74-106) mg/dL POC Glucose 97 (74-106) MG/DL Lactic Acid (0.4-2.0) mmol/L Calcium 8.9 (8.5-10.1) mg/dL Total Bilirubin (0.2-1.0) mg/dL AST (15-37) U/L ALT (12-78) U/L Alkaline Phosphatase (46-116) U/L Troponin I 0.134 H* (0.000-0.056) ng/mL C-Reactive Protein (0.0-0.3) mg/dL NT-Pro-B Natriuret Pep (5-450) pg/mL Total Protein (6.4-8.2) g/dL Albumin (3.4-5.0) g/dL Globulin (2.3-3.5) g/dL Albumin/Globulin Ratio (1.2-2.2) Procalcitonin ng/mL Urine Color (YELLOW) Urine Appearance (CLEAR) Urine pH (5.0-8.0) Ur Specific [place] (1.008-1.030) Urine Protein (NEGATIVE) mg/dL Urine Glucose (UA) (NEGATIVE) mg/dL Urine Ketones (NEGATIVE) mg/dL Urine Occult Blood (NEGATIVE) Urine Nitrite (NEGATIVE) Urine Bilirubin (NEGATIVE) Urine Urobilinogen (0.2-1.0) EU/dL Ur Leukocyte Esterase (NEGATIVE) Urine RBC (0-5) Urine WBC (0-5) Ur Epithelial Cells Amorphous Sediment Urine Bacteria Urine Mucus Influenza Type A RNA (NEGATIVE) RSV RNA (INAAT) (NEGATIVE) Influenza Type B RNA (NEGATIVE) SARS-CoV-2 RNA (JAN) (NEGATIVE) 11/11/20 Range/Units 07:30 WBC (4.5-11.0) K/uL RBC (4.30-5.90) M/uL Hgb (12.0-15.0) g/dL Hct (40.0-54.0) % MCV (80-98) fL MCH (27-31) pg MCHC (32-36) % Plt Count (150-400) K/uL Neut % (Auto) (36-66) % Lymph % (Auto) (24-44) % [place] % (Auto) (2-6) % Eos % (Auto) (2-4) % Baso % (Auto) (0-1) % Sodium (140-148) mmol/L Potassium (3.6-5.2) mmol/L Chloride (100-108) mmol/L Carbon Dioxide (21-32) mmol/L Anion Gap (5.0-14.0) mmol/L BUN (7-18) mg/dL Creatinine (0.8-1.3) mg/dL Est Cr Clr Drug Dosing mL/min Estimated GFR (MDRD) (>60) Glucose (74-106) mg/dL POC Glucose 87 (74-106) MG/DL Lactic Acid (0.4-2.0) mmol/L Calcium (8.5-10.1) mg/dL Total Bilirubin (0.2-1.0) mg/dL AST (15-37) U/L ALT (12-78) U/L Alkaline Phosphatase (46-116) U/L Troponin I (0.000-0.056) ng/mL C-Reactive Protein (0.0-0.3) mg/dL NT-Pro-B Natriuret Pep (5-450) pg/mL Total Protein (6.4-8.2) g/dL Albumin (3.4-5.0) g/dL Globulin (2.3-3.5) g/dL Albumin/Globulin Ratio (1.2-2.2) Procalcitonin ng/mL Urine Color (YELLOW) Urine Appearance (CLEAR) Urine pH (5.0-8.0) Ur Specific [place] (1.008-1.030) Urine Protein (NEGATIVE) mg/dL Urine Glucose (UA) (NEGATIVE) mg/dL Urine Ketones (NEGATIVE) mg/dL Urine Occult Blood (NEGATIVE) Urine Nitrite (NEGATIVE) Urine Bilirubin (NEGATIVE) Urine Urobilinogen (0.2-1.0) EU/dL Ur Leukocyte Esterase (NEGATIVE) Urine RBC (0-5) Urine WBC (0-5) Ur Epithelial Cells Amorphous Sediment Urine Bacteria Urine Mucus Influenza Type A RNA (NEGATIVE) RSV RNA (INAAT) (NEGATIVE) Influenza Type B RNA (NEGATIVE) SARS-CoV-2 RNA (JAN) (NEGATIVE) Result Diagrams: 11/11/20 04:10 11/11/20 04:10 Sepsis Event Note - Evaluation Sepsis Screening Result: No Definite Risk - Focused Exam Vital Signs: Vital Signs Temp Pulse Resp BP BP Pulse Ox 11/11/20 09:11 130/64 11/11/20 09:07 130/64 11/11/20 07:24 93 L 11/11/20 07:00 36.5 C 68 18 142/81 H 95 11/11/20 02:28 35.7 C L 97 20 132/65 94 L 11/11/20 02:02 97 - Problem List Review Problem List Initiated/Reviewed/Updated: Yes - My Orders Last 24 Hours: My Active Orders 11/11/20 09:52 PT Evaluation and Treatment [CONS] Routine 11/11/20 10:45 Bumetanide [Bumex] 2 mg IVPUSH ONETIME ONE 11/11/20 16:00 POTASSIUM,K [CHEM] Routine 11/11/20 16:30 glipiZIDE [Glucotrol] 5 mg PO BIDAC 11/12/20 05:00 BASIC METABOLIC PANEL,BMP [CHEM] Timed - Plan Plan:: ASSESSMENT AND PLAN DIASTOLIC CONGESTIVE HEART FAILURE, suspected-edema better with diuresis but lisa rtness of breath is not much different than yesterday. -Bumetanide 2 mg IV x1 this morning and reassess this afternoon -Monitor intake and output -saline lock IV -Supplement oxygen if needed TYPE 2 DIABETES MELLITUS-well controlled so far. -Continue usual dose of long-acting insulin -Continue glipizide -before meals and at bedtime glucometers -consistent carb diet HYPOKALEMIA- Potassium little lower today after diuresis. -Supplement potassium this morning and recheck this afternoon -Supplement as indicated this afternoon -recheck Potassium in am. ELEVATED TROPONIN-this is most likely related to demand ischemia with CHF. Level is trending down. No chest pain. -will recheck in am MAINTENANCE ISSUES -DVT prophylaxis; Lovenox 40 mg subcu daily -GI prophylaxis; continue PPI therapy -Robin catheter; not indicated -Nutrition- consistent carb diet DISPOSITION-anticipate discharge to home after the hospital stay. Abdoulaye Montesinos MD
[2020-11-11] MEDS ORDERED: Bumetanide 1 MG/4 ML MDV IVPUSH ONE (10:55)
[2020-11-11] MEDS: Albuterol 0.083% 2.5 MG/3 ML Neb Soln NEB PRN (15:54)
[2020-11-11] MEDS: Pramipexole 0.5 MG Tab PO SCH (21:20)
[2020-11-11] MEDS: atorvaSTATin 20 MG Tab PO SCH (21:20)
[2020-11-11] MEDS: Montelukast 10 MG Tab PO SCH (21:20)
[2020-11-11] MEDS: Zolpidem 5 MG Tab PO SCH (21:20)
[2020-11-11] MEDS: Enoxaparin 40 MG/0.4 ML Syringe SUBCUT SCH (21:20)
[2020-11-11] MEDS: traZODone 50 MG Tab PO SCH (21:20)
[2020-11-12] MEDS: Tiotropium BR/Olodaterol HCL 4 GM Inhalation Spray 2.5mcg/1 dose; 10 doses INH SCH (06:59)
[2020-11-12] MEDS: Pantoprazole 40 MG Tab.CR PO SCH ×2 (07:30→16:20)
[2020-11-12] MEDS: glipiZIDE 5 MG Tab PO SCH ×2 (07:30→16:20)
[2020-11-12] MEDS ORDERED: Potassium Chloride 20 MEQ Tab.ER PO ONE (08:30)
[2020-11-12] MEDS: Acetaminophen/HYDROcodone 325-5 MG Tab PO SCH (09:03)
[2020-11-12] MEDS: Escitalopram 20 MG Tab PO SCH (09:03)
[2020-11-12] MEDS: predniSONE 5 MG Tab PO SCH (09:03)
[2020-11-12] MEDS: Hydrochlorothiazide 25 MG Tab PO SCH (09:03)
[2020-11-12] MEDS: Tamsulosin 0.4 MG Cap.ER PO SCH (09:04)
[2020-11-12] MEDS: Fluticasone Propionate Nasal Spray 16 GM Bottle NASBOTH SCH (09:04)
[2020-11-12] MEDS: Triamcinolone Acetonide 0.1% Crm 80 GM Tube TOP SCH ×2 (09:04→21:11)
[2020-11-12] MEDS: Insulin Glargine,Human Rec. Analog 100 Units/ML 3 ML Pen SUBCUT SCH ×2 (09:04→21:23)
[2020-11-12] MEDS: Trospium 20 MG Tab PO SCH (09:04)
[2020-11-12] MEDS: Isosorbide Mononitrate 30 MG Tab.ER PO SCH (09:05)
[2020-11-12] MEDS: Lisinopril 2.5 MG Tab PO SCH (09:07)
[2020-11-12] MEDS: Albuterol 0.083% 2.5 MG/3 ML Neb Soln NEB PRN ×2 (09:12→14:58)
--- NOTE | 2020-11-12 10:46 | PCM.PN ---
- General Info Date of Service: 11/12/20 Subjective Update: There were no acute events overnight. Shortness of breath is a little better today but not back to baseline. No chest pain. Lower extremity edema has improved but not quite resolved. No fevers. No significant cough. Strength is better but he does continue to require the assist of 1. Creatinine is slightly higher today. Potassium is low normal. Functional Status: Reports: Pain Controlled, Tolerating Diet - Review of Systems General: Reports: Weakness Pulmonary: Reports: Shortness of Breath - Patient Data Vitals - Most Recent: Last Vital Signs Temp 35.3 C L 11/12/20 07:24 Pulse 90 11/12/20 07:24 Resp 18 11/12/20 07:24 BP 149/72 H 11/12/20 09:07 Pulse Ox 95 11/12/20 07:45 Weight - Most Recent: 107.4 kg I&O - Last 24 Hours: Intake & Output 11/11/20 11/12/20 11/12/20 22:59 06:59 14:59 Intake Total 950 1060 Output Total 1100 Balance -150 1060 Lab Results Last 24 Hours: Laboratory Results - last 24 hr 11/11/20 11/11/20 11/11/20 Range/Units 11:30 16:05 16:30 Sodium (140-148) mmol/L Potassium 3.6 (3.6-5.2) mmol/L Chloride (100-108) mmol/L Carbon Dioxide (21-32) mmol/L Anion Gap (5.0-14.0) mmol/L BUN (7-18) mg/dL Creatinine (0.8-1.3) mg/dL Est Cr Clr Drug Dosing mL/min Estimated GFR (MDRD) (>60) Glucose (74-106) mg/dL POC Glucose 175 H 199 H (74-106) MG/DL Calcium (8.5-10.1) mg/dL 11/11/20 11/12/20 11/12/20 Range/Units 21:05 05:30 07:31 Sodium 137 L (140-148) mmol/L Potassium 3.5 L (3.6-5.2) mmol/L Chloride 96 L (100-108) mmol/L Carbon Dioxide 31 (21-32) mmol/L Anion Gap 13.5 (5.0-14.0) mmol/L BUN 24 H (7-18) mg/dL Creatinine 1.6 H (0.8-1.3) mg/dL Est Cr Clr Drug Dosing 30.62 mL/min Estimated GFR (MDRD) 42 L (>60) Glucose 132 H (74-106) mg/dL POC Glucose 206 H 102 (74-106) MG/DL Calcium 8.8 (8.5-10.1) mg/dL Antony Results Last 24 Hours: Microbiology 11/10/20 17:45 Aerobic Blood Culture - Preliminary Blood - Venous - Iv Start NO GROWTH AFTER 1 DAY Anaerobic Blood Culture - Preliminary NO GROWTH AFTER 1 DAY 11/10/20 17:40 Aerobic Blood Culture - Preliminary Blood - Venous - Iv Start NO GROWTH AFTER 1 DAY Anaerobic Blood Culture - Preliminary NO GROWTH AFTER 1 DAY Med Orders - Current: Current Medications Acetaminophen (Acetaminophen 325 Mg Tab) 650 mg PO Q4H PRN PRN Reason: Pain (Mild 1-3)/fever Hydrocodone Bitart/Acetaminophen (Acetaminophen/Hydrocodone 325-5 Mg Tab) 1 tab PO DAILY [facility] Last Admin: 11/12/20 09:03 Dose: 1 tab Documented by: Albuterol (Albuterol 0.083% 2.5 Mg/3 Ml Neb Soln) 2.5 mg NEB Q4H PRN PRN Reason: Shortness Of Breath/wheezing Last Admin: 11/12/20 09:12 Dose: 2.5 mg Documented by: Albuterol/Ipratropium (Albuterol/Ipratropium 3.0-0.5 Mg/3 Ml Neb Soln) 3 ml NEB QID PRN PRN Reason: Shortness Of Breath/wheezing Last Admin: 11/11/20 10:07 Dose: 3 ml Documented by: Atorvastatin Calcium (Atorvastatin 20 Mg Tab) 20 mg PO BEDTIME [facility] Last Admin: 11/11/20 21:20 Dose: 20 mg Documented by: Bisacodyl (Bisacodyl 5 Mg Tab) 5 mg PO DAILY PRN PRN Reason: Constipation Bumetanide (Bumetanide 1 Mg/4 Ml Mdv) 1 mg IVPUSH ONETIME ONE Stop: 11/12/20 13:01 Cyclobenzaprine HCl (Cyclobenzaprine 10 Mg Tab) 10 - 15 mg PO BEDTIME PRN PRN Reason: Muscle Spasm Dextrose/Water (50% Dextrose In Water 50 Ml Syringe) 50 ml IVPUSH ASDIRECTED PRN PRN Reason: Hypoglycemia Docusate Sodium (Docusate Sodium 100 Mg Cap) 100 mg PO BID PRN PRN Reason: Constipation Enoxaparin Sodium (Enoxaparin 40 Mg/0.4 Ml Syringe) 40 mg SUBCUT BEDTIME [facility] Last Admin: 11/11/20 21:20 Dose: 40 mg Documented by: Escitalopram Oxalate (Escitalopram 20 Mg Tab) 20 mg PO DAILY [facility] Last Admin: 11/12/20 09:03 Dose: 20 mg Documented by: Fluticasone Propionate (Fluticasone Propionate Nasal [place] 16 Gm Bottle) 0 gm NASBOTH DAILY [facility] Last Admin: 11/12/20 09:04 Dose: 2 sprays Documented by: Glipizide (Glipizide 5 Mg Tab) 5 mg PO BIDAC [facility] Last Admin: 11/12/20 07:30 Dose: 5 mg Documented by: Glucagon (Glucagon,Human Recombinant 1 Mg Vial) 1 mg IM ASDIRECTED PRN PRN Reason: Hypoglycemia Hydrochlorothiazide (Hydrochlorothiazide 25 Mg Tab) 25 mg PO DAILY [facility] Last Admin: 11/12/20 09:03 Dose: 25 mg Documented by: Insulin Glargine (Insulin Glargine,Human Rec. Analog 100 Units/Ml 3 Ml Pen) 14 units SUBCUT Q12H [facility] Last Admin: 11/12/20 09:04 Dose: 14 units Documented by: Isosorbide Mononitrate (Isosorbide Mononitrate 30 Mg Tab.Er) 30 mg PO DAILY [facility] Last Admin: 11/12/20 09:05 Dose: 30 mg Documented by: Lisinopril (Lisinopril 2.5 Mg Tab) 2.5 mg PO DAILY [facility] Last Admin: 11/12/20 09:07 Dose: 2.5 mg Documented by: Lorazepam (Lorazepam 2 Mg/Ml Sdv) 1 mg IV Q6H PRN PRN Reason: Nausea/Vomiting Montelukast Sodium (Montelukast 10 Mg Tab) 10 mg PO BEDTIME [facility] Last Admin: 11/11/20 21:20 Dose: 10 mg Documented by: Morphine Sulfate (Morphine 2 Mg/Ml Syringe) 2 mg IVPUSH Q2H PRN PRN Reason: Pain (severe 7-10) Nitroglycerin (Nitroglycerin 0.4 Mg Tab.Sl) 0.4 mg SL ASDIRECTED PRN PRN Reason: Chest Pain Ondansetron HCl (Ondansetron 4 Mg Tab.Dis) 4 mg PO Q6H PRN PRN Reason: Nausea able to take PO Oxycodone HCl (Oxycodone 5 Mg Tab) 5 mg PO Q4H PRN PRN Reason: Pain (moderate 4-6) Pantoprazole Sodium (Pantoprazole 40 Mg Tab.Cr) 40 mg PO BIDAC [facility] Last Admin: 11/12/20 07:30 Dose: 40 mg Documented by: Pramipexole Dihydrochloride (Pramipexole 0.5 Mg Tab) 2 mg PO BEDTIME [facility] Last Admin: 11/11/20 21:20 Dose: 2 mg Documented by: Prednisone (Prednisone 5 Mg Tab) 5 mg PO DAILY [facility] Last Admin: 11/12/20 09:03 Dose: 5 mg Documented by: Tamsulosin HCl (Tamsulosin 0.4 Mg Cap.Er) 0.4 mg PO DAILY [facility] Last Admin: 11/12/20 09:04 Dose: 0.4 mg Documented by: Trazodone HCl (Trazodone 50 Mg Tab) 150 mg PO BEDTIME [facility] Last Admin: 11/11/20 21:20 Dose: 150 mg Documented by: Triamcinolone Acetonide (Triamcinolone Acetonide 0.1% Crm 80 Gm Tube) 0 gm TOP BID [facility] Last Admin: 11/12/20 09:04 Dose: 1 applic Documented by: Trospium (Trospium 20 Mg Tab) 20 mg PO DAILY [facility] Last Admin: 11/12/20 09:04 Dose: 20 mg Documented by: Zolpidem Tartrate (Zolpidem 5 Mg Tab) 10 mg PO BEDTIME [facility] Last Admin: 11/11/20 21:20 Dose: 10 mg Documented by: Discontinued Medications Bumetanide (Bumetanide 2.5 Mg/10 Ml Mdv) 2 mg IVPUSH ONETIME ONE Stop: 11/10/20 19:49 Last Admin: 11/10/20 20:14 Dose: 2 mg Documented by: Bumetanide (Bumetanide 1 Mg/4 Ml Mdv) 2 mg IVPUSH ONETIME ONE Stop: 11/11/20 10:56 Last Admin: 11/11/20 11:00 Dose: 2 mg Documented by: Enoxaparin Sodium (Enoxaparin 40 Mg/0.4 Ml Syringe) 40 mg SUBCUT DAILY [facility] Last Admin: 11/10/20 22:22 Dose: 40 mg Documented by: Escitalopram Oxalate (Escitalopram 10 Mg Tab) 10 mg PO DAILY [facility] Last Admin: 11/11/20 09:12 Dose: 10 mg Documented by: Furosemide (Furosemide 20 Mg Tab) 20 mg PO DAILY [facility] Glipizide (Glipizide 5 Mg Tab) 10 mg PO BID [facility] Last Admin: 11/11/20 09:17 Dose: 5 mg Documented by: Lactated Ringer's (Ringers, Lactated) 1,000 mls @ 500 mls/hr IV ASDIRECTED [facility] Last Admin: 11/10/20 17:49 Dose: 500 mls/hr Documented by: Levofloxacin/Dextrose 750 mg/ (Premix) 150 mls @ 100 mls/hr IV Q24H [facility] Last Admin: 11/10/20 17:50 Dose: 100 mls/hr Documented by: Potassium Chloride 20 meq/ (Premix) 100 mls @ 50 mls/hr IV ONETIME ONE Stop: 11/10/20 21:49 Last Admin: 11/10/20 20:15 Dose: 50 mls/hr Documented by: Potassium Chloride 20 meq/ (Premix) 100 mls @ 50 mls/hr IV ONETIME ONE Stop: 11/11/20 07:39 Last Admin: 11/11/20 06:04 Dose: 50 mls/hr Documented by: Insulin Human Lispro (Insulin Lispro 100 Unit/Ml 3 Ml Kwikpen) 0 unit SUBCUT QIDACANDBED [facility]; Protocol Last Admin: 11/11/20 08:19 Dose: Not Given Documented by: Lidocaine HCl (Lidocaine 1% 5 Ml Sdv) 5 ml INJECT ONETIME ONE Stop: 11/10/20 20:08 Last Admin: 11/10/20 20:16 Dose: 2 ml Documented by: Lidocaine HCl (Lidocaine 1% 5 Ml Sdv) 2 ml INJECT ONETIME ONE Stop: 11/11/20 05:43 Last Admin: 11/11/20 06:05 Dose: 2 ml Documented by: Non-Formulary Medication (Exenatide Microspheres [Bydureon Pen]) 2 mg SQ WEEKLY [facility] Potassium Chloride (Potassium Chloride 20 Meq Tab.Er) 40 meq PO ONETIME ONE Stop: 11/11/20 09:01 Last Admin: 11/11/20 09:11 Dose: 40 meq Documented by: Potassium Chloride (Potassium Chloride 20 Meq Tab.Er) 40 meq PO ONETIME ONE Stop: 11/11/20 18:27 Last Admin: 11/11/20 18:32 Dose: 40 meq Documented by: Potassium Chloride (Potassium Chloride 20 Meq Tab.Er) 40 meq PO ONETIME ONE Stop: 11/12/20 08:31 Last Admin: 11/12/20 09:03 Dose: 40 meq Documented by: - Exam Quality Assessment: No: Supplemental Oxygen General: Alert, Oriented, Cooperative, No Acute Distress Lungs: Normal Respiratory Effort, Crackles Cardiovascular: Regular Rate, Irregular Rhythm GI/Abdominal Exam: Soft, No Distention Extremities: Pedal Edema (trace ankle edema bilaterally ). No: Increased Warmth Skin: Warm, Dry Psy/Mental Status: Alert, Normal Affect - Patient Data Lab Results Last 24 hrs: Laboratory Results - last 24 hr 11/11/20 11/11/20 11/11/20 Range/Units 11:30 16:05 16:30 Sodium (140-148) mmol/L Potassium 3.6 (3.6-5.2) mmol/L Chloride (100-108) mmol/L Carbon Dioxide (21-32) mmol/L Anion Gap (5.0-14.0) mmol/L BUN (7-18) mg/dL Creatinine (0.8-1.3) mg/dL Est Cr Clr Drug Dosing mL/min Estimated GFR (MDRD) (>60) Glucose (74-106) mg/dL POC Glucose 175 H 199 H (74-106) MG/DL Calcium (8.5-10.1) mg/dL 11/11/20 11/12/20 11/12/20 Range/Units 21:05 05:30 07:31 Sodium 137 L (140-148) mmol/L Potassium 3.5 L (3.6-5.2) mmol/L Chloride 96 L (100-108) mmol/L Carbon Dioxide 31 (21-32) mmol/L Anion Gap 13.5 (5.0-14.0) mmol/L BUN 24 H (7-18) mg/dL Creatinine 1.6 H (0.8-1.3) mg/dL Est Cr Clr Drug Dosing 30.62 mL/min Estimated GFR (MDRD) 42 L (>60) Glucose 132 H (74-106) mg/dL POC Glucose 206 H 102 (74-106) MG/DL Calcium 8.8 (8.5-10.1) mg/dL Result Diagrams: 11/11/20 04:10 11/12/20 05:30 Antony Results Last 24 hrs: Microbiology 11/10/20 17:45 Aerobic Blood Culture - Preliminary Blood - Venous - Iv Start NO GROWTH AFTER 1 DAY Anaerobic Blood Culture - Preliminary NO GROWTH AFTER 1 DAY 11/10/20 17:40 Aerobic Blood Culture - Preliminary Blood - Venous - Iv Start NO GROWTH AFTER 1 DAY Anaerobic Blood Culture - Preliminary NO GROWTH AFTER 1 DAY Sepsis Event Note - Evaluation Sepsis Screening Result: Sepsis Risk - Focused Exam Vital Signs: Vital Signs Temp Pulse Resp BP BP Pulse Ox 11/12/20 09:07 149/72 H 11/12/20 09:05 149/72 H 11/12/20 07:45 95 11/12/20 07:24 35.3 C L 90 18 149/89 H 97 11/12/20 03:44 35.8 C L 102 H 18 127/69 97 11/12/20 01:33 96 - Problem List Review Problem List Initiated/Reviewed/Updated: Yes - My Orders Last 24 Hours: My Active Orders 11/11/20 09:52 PT Evaluation and Treatment [CONS] Routine 11/11/20 16:30 glipiZIDE [Glucotrol] 5 mg PO BIDAC 11/12/20 09:00 Escitalopram [Lexapro] 20 mg PO DAILY 11/12/20 10:45 Discontinue Telemetry Monitoring [Cardiac Monitoring Discontinue] [RC] Click to Edit 11/12/20 13:00 Bumetanide [Bumex] 1 mg IVPUSH ONETIME ONE 11/13/20 05:00 BASIC METABOLIC PANEL,BMP [CHEM] Timed - Plan Plan:: ASSESSMENT AND PLAN DIASTOLIC CONGESTIVE HEART FAILURE, suspected-edema better and shortness of breath is better but not back to baseline. Creatinine slightly higher so we will have to reduce diuresis a little bit. -Bumetanide 1 mg IV x1 this afternoon and reassess in the morning -Echo in the morning -Monitor intake and output -saline lock IV -Supplement oxygen if needed TYPE 2 DIABETES MELLITUS-well controlled so far. -Continue usual dose of long-acting insulin -Continue glipizide -before meals and at bedtime glucometers -consistent carb diet HYPOKALEMIA- Potassium improved and is low normal. Planning to replace this morning because of plan for diuresis later. -Supplement potassium this morning -recheck Potassium in am. ELEVATED TROPONIN-this is most likely related to demand ischemia with CHF. Level has trended down. -will recheck in am MAINTENANCE ISSUES -DVT prophylaxis; Lovenox 40 mg subcu daily -GI prophylaxis; continue PPI therapy -Robin catheter; not indicated -Nutrition- consistent carb diet DISPOSITION-anticipate discharge to home possibly with home care after the hospital stay. Abdoulaye Montesinos MD
[2020-11-12] MEDS ORDERED: Bumetanide 1 MG/4 ML MDV IVPUSH ONE (13:00)
[2020-11-12] MEDS: atorvaSTATin 20 MG Tab PO SCH (21:10)
[2020-11-12] MEDS: Zolpidem 5 MG Tab PO SCH (21:10)
[2020-11-12] MEDS: Montelukast 10 MG Tab PO SCH (21:11)
[2020-11-12] MEDS: traZODone 50 MG Tab PO SCH (21:11)
[2020-11-12] MEDS: Enoxaparin 40 MG/0.4 ML Syringe SUBCUT SCH (21:11)
[2020-11-12] MEDS: Pramipexole 0.5 MG Tab PO SCH (21:18)
[2020-11-13] MEDS: Albuterol 0.083% 2.5 MG/3 ML Neb Soln NEB PRN (00:39)
[2020-11-13] MEDS: Tiotropium BR/Olodaterol HCL 4 GM Inhalation Spray 2.5mcg/1 dose; 10 doses INH SCH (07:05)
[2020-11-13] MEDS: Pantoprazole 40 MG Tab.CR PO SCH ×2 (07:06→15:54)
[2020-11-13] MEDS: glipiZIDE 5 MG Tab PO SCH ×2 (07:06→15:54)
[2020-11-13] MEDS: Tamsulosin 0.4 MG Cap.ER PO SCH (08:09)
[2020-11-13] MEDS: Hydrochlorothiazide 25 MG Tab PO SCH (08:10)
[2020-11-13] MEDS: Fluticasone Propionate Nasal Spray 16 GM Bottle NASBOTH SCH (08:10)
[2020-11-13] MEDS: Isosorbide Mononitrate 30 MG Tab.ER PO SCH (08:11)
[2020-11-13] MEDS: Lisinopril 2.5 MG Tab PO SCH (08:14)
[2020-11-13] MEDS: Triamcinolone Acetonide 0.1% Crm 80 GM Tube TOP SCH ×2 (08:14→20:12)
[2020-11-13] MEDS: Escitalopram 20 MG Tab PO SCH (08:14)
[2020-11-13] MEDS: predniSONE 5 MG Tab PO SCH (08:14)
[2020-11-13] MEDS: Trospium 20 MG Tab PO SCH (08:15)
[2020-11-13] MEDS: Acetaminophen/HYDROcodone 325-5 MG Tab PO SCH (08:17)
[2020-11-13] MEDS: Docusate Sodium 100 MG Cap PO PRN ×2 (08:39→20:11)
--- NOTE | 2020-11-13 09:01 | CR ---
CHEST: 2 view CLINICAL HISTORY:SOB COMPARISON:CT 2019 FINDINGS: There is some pleural-based density in the right midlung field laterally. This is similar to prior CT. There is ill-definition of the left heart margin and some left lower lung density on both AP and lateral. There are atherosclerotic changes in the aorta. Impression: Scarring in the right midlung field Airspace disease in the lingula may represent atelectasis or infiltrate. Follow-up recommended until clear
[2020-11-13] MEDS: Insulin Glargine,Human Rec. Analog 100 Units/ML 3 ML Pen SUBCUT SCH ×2 (09:08→22:27)
--- NOTE | 2020-11-13 15:37 | PCM.PN ---
- General Info Date of Service: 11/13/20 Subjective Update: Mr. Corbin has been stable since yesterday. He reports less shortness of breath and improvement in his overall energy level. Functional Status: Reports: Tolerating Diet, Ambulating, Urinating - Review of Systems General: Reports: Weakness, Fatigue. Denies: Fever, Chills Pulmonary: Reports: Shortness of Breath. Denies: Pleuritic Chest Pain, Cough, Sputum, Hemoptysis Cardiovascular: Reports: Dyspnea on Exertion. Denies: Chest Pain, Palpitations, Orthopnea, PND, Edema, Lightheadedness Gastrointestinal: Reports: No Symptoms Genitourinary: Reports: No Symptoms - Patient Data Vitals - Most Recent: Last Vital Signs Temp 96.1 F L 11/13/20 14:54 Pulse 94 11/13/20 14:54 Resp 16 11/13/20 14:54 BP 116/68 11/13/20 14:54 Pulse Ox 98 11/13/20 14:54 Weight - Most Recent: 236 lb I&O - Last 24 Hours: Intake & Output 11/13/20 11/13/20 11/13/20 06:59 14:59 22:59 Intake Total 500 720 Output Total 50 200 Balance 450 520 Lab Results Last 24 Hours: Laboratory Results - last 24 hr 11/12/20 11/12/20 11/13/20 Range/Units 16:30 21:00 06:20 Sodium 136 L (140-148) mmol/L Potassium 3.7 (3.6-5.2) mmol/L Chloride 97 L (100-108) mmol/L Carbon Dioxide 29 (21-32) mmol/L Anion Gap 13.7 (5.0-14.0) mmol/L BUN 30 H (7-18) mg/dL Creatinine 1.9 H (0.8-1.3) mg/dL Est Cr Clr Drug Dosing 25.79 mL/min Estimated GFR (MDRD) 34 L (>60) Glucose 117 H (74-106) mg/dL POC Glucose 296 H 241 H (74-106) MG/DL Calcium 8.7 (8.5-10.1) mg/dL 11/13/20 11/13/20 Range/Units 07:30 11:30 Sodium (140-148) mmol/L Potassium (3.6-5.2) mmol/L Chloride (100-108) mmol/L Carbon Dioxide (21-32) mmol/L Anion Gap (5.0-14.0) mmol/L BUN (7-18) mg/dL Creatinine (0.8-1.3) mg/dL Est Cr Clr Drug Dosing mL/min Estimated GFR (MDRD) (>60) Glucose (74-106) mg/dL POC Glucose 107 H 220 H (74-106) MG/DL Calcium (8.5-10.1) mg/dL Antony Results Last 24 Hours: Microbiology 11/10/20 17:40 Aerobic Blood Culture - Preliminary Blood - Venous - Iv Start NO GROWTH AFTER 2 DAYS Anaerobic Blood Culture - Preliminary NO GROWTH AFTER 2 DAYS 11/10/20 17:45 Aerobic Blood Culture - Preliminary Blood - Venous - Iv Start NO GROWTH AFTER 2 DAYS Anaerobic Blood Culture - Preliminary NO GROWTH AFTER 2 DAYS Med Orders - Current: Current Medications Acetaminophen (Acetaminophen 325 Mg Tab) 650 mg PO Q4H PRN PRN Reason: Pain (Mild 1-3)/fever Hydrocodone Bitart/Acetaminophen (Acetaminophen/Hydrocodone 325-5 Mg Tab) 1 tab PO DAILY [facility] Last Admin: 11/13/20 08:17 Dose: 1 tab Documented by: Albuterol (Albuterol 0.083% 2.5 Mg/3 Ml Neb Soln) 2.5 mg NEB Q4H PRN PRN Reason: Shortness Of Breath/wheezing Last Admin: 11/13/20 00:39 Dose: 2.5 mg Documented by: Albuterol/Ipratropium (Albuterol/Ipratropium 3.0-0.5 Mg/3 Ml Neb Soln) 3 ml NEB QID PRN PRN Reason: Shortness Of Breath/wheezing Last Admin: 11/11/20 10:07 Dose: 3 ml Documented by: Atorvastatin Calcium (Atorvastatin 20 Mg Tab) 20 mg PO BEDTIME [facility] Last Admin: 11/12/20 21:10 Dose: 20 mg Documented by: Bisacodyl (Bisacodyl 5 Mg Tab) 5 mg PO DAILY PRN PRN Reason: Constipation Cyclobenzaprine HCl (Cyclobenzaprine 10 Mg Tab) 10 - 15 mg PO BEDTIME PRN PRN Reason: Muscle Spasm Dextrose/Water (50% Dextrose In Water 50 Ml Syringe) 50 ml IVPUSH ASDIRECTED PRN PRN Reason: Hypoglycemia Docusate Sodium (Docusate Sodium 100 Mg Cap) 100 mg PO BID PRN PRN Reason: Constipation Last Admin: 11/13/20 08:39 Dose: 100 mg Documented by: Enoxaparin Sodium (Enoxaparin 30 Mg/0.3 Ml Syringe) 30 mg SUBCUT BEDTIME [facility] Escitalopram Oxalate (Escitalopram 20 Mg Tab) 20 mg PO DAILY [facility] Last Admin: 11/13/20 08:14 Dose: 20 mg Documented by: Fluticasone Propionate (Fluticasone Propionate Nasal Interior 16 Gm Bottle) 0 gm NASBOTH DAILY [facility] Last Admin: 11/13/20 08:10 Dose: 2 sprays Documented by: Glipizide (Glipizide 5 Mg Tab) 5 mg PO BIDAC [facility] Last Admin: 11/13/20 07:06 Dose: 5 mg Documented by: Glucagon (Glucagon,Human Recombinant 1 Mg Vial) 1 mg IM ASDIRECTED PRN PRN Reason: Hypoglycemia Hydrochlorothiazide (Hydrochlorothiazide 25 Mg Tab) 25 mg PO DAILY [facility] Last Admin: 11/13/20 08:10 Dose: 25 mg Documented by: Insulin Glargine (Insulin Glargine,Human Rec. Analog 100 Units/Ml 3 Ml Pen) 14 units SUBCUT Q12H [facility] Last Admin: 11/13/20 09:08 Dose: 14 units Documented by: Isosorbide Mononitrate (Isosorbide Mononitrate 30 Mg Tab.Er) 30 mg PO DAILY [facility] Last Admin: 11/13/20 08:11 Dose: 30 mg Documented by: Lisinopril (Lisinopril 2.5 Mg Tab) 2.5 mg PO DAILY [facility] Last Admin: 11/13/20 08:14 Dose: 2.5 mg Documented by: Lorazepam (Lorazepam 2 Mg/Ml Sdv) 1 mg IV Q6H PRN PRN Reason: Nausea/Vomiting Montelukast Sodium (Montelukast 10 Mg Tab) 10 mg PO BEDTIME [facility] Last Admin: 11/12/20 21:11 Dose: 10 mg Documented by: Morphine Sulfate (Morphine 2 Mg/Ml Syringe) 2 mg IVPUSH Q2H PRN PRN Reason: Pain (severe 7-10) Nitroglycerin (Nitroglycerin 0.4 Mg Tab.Sl) 0.4 mg SL ASDIRECTED PRN PRN Reason: Chest Pain Ondansetron HCl (Ondansetron 4 Mg Tab.Dis) 4 mg PO Q6H PRN PRN Reason: Nausea able to take PO Oxycodone HCl (Oxycodone 5 Mg Tab) 5 mg PO Q4H PRN PRN Reason: Pain (moderate 4-6) Pantoprazole Sodium (Pantoprazole 40 Mg Tab.Cr) 40 mg PO BIDAC [facility] Last Admin: 11/13/20 07:06 Dose: 40 mg Documented by: Pramipexole Dihydrochloride (Pramipexole 0.5 Mg Tab) 2 mg PO BEDTIME [facility] Last Admin: 11/12/20 21:18 Dose: 2 mg Documented by: Prednisone (Prednisone 5 Mg Tab) 5 mg PO DAILY [facility] Last Admin: 11/13/20 08:14 Dose: 5 mg Documented by: Tamsulosin HCl (Tamsulosin 0.4 Mg Cap.Er) 0.4 mg PO DAILY [facility] Last Admin: 11/13/20 08:09 Dose: 0.4 mg Documented by: Trazodone HCl (Trazodone 50 Mg Tab) 150 mg PO BEDTIME [facility] Last Admin: 11/12/20 21:11 Dose: 150 mg Documented by: Triamcinolone Acetonide (Triamcinolone Acetonide 0.1% Crm 80 Gm Tube) 0 gm TOP BID [facility] Last Admin: 11/13/20 08:14 Dose: 1 applic Documented by: Trospium (Trospium 20 Mg Tab) 20 mg PO DAILY [facility] Last Admin: 11/13/20 08:15 Dose: 20 mg Documented by: Discontinued Medications Bumetanide (Bumetanide 2.5 Mg/10 Ml Mdv) 2 mg IVPUSH ONETIME ONE Stop: 11/10/20 19:49 Last Admin: 11/10/20 20:14 Dose: 2 mg Documented by: Bumetanide (Bumetanide 1 Mg/4 Ml Mdv) 2 mg IVPUSH ONETIME ONE Stop: 11/11/20 10:56 Last Admin: 11/11/20 11:00 Dose: 2 mg Documented by: Bumetanide (Bumetanide 1 Mg/4 Ml Mdv) 1 mg IVPUSH ONETIME ONE Stop: 11/12/20 13:01 Last Admin: 11/12/20 13:09 Dose: 1 mg Documented by: Enoxaparin Sodium (Enoxaparin 40 Mg/0.4 Ml Syringe) 40 mg SUBCUT DAILY [facility] Last Admin: 11/10/20 22:22 Dose: 40 mg Documented by: Enoxaparin Sodium (Enoxaparin 40 Mg/0.4 Ml Syringe) 40 mg SUBCUT BEDTIME [facility] Last Admin: 11/12/20 21:11 Dose: 40 mg Documented by: Escitalopram Oxalate (Escitalopram 10 Mg Tab) 10 mg PO DAILY [facility] Last Admin: 11/11/20 09:12 Dose: 10 mg Documented by: Furosemide (Furosemide 20 Mg Tab) 20 mg PO DAILY [facility] Glipizide (Glipizide 5 Mg Tab) 10 mg PO BID [facility] Last Admin: 11/11/20 09:17 Dose: 5 mg Documented by: Lactated Ringer's (Ringers, Lactated) 1,000 mls @ 500 mls/hr IV ASDIRECTED [facility] Last Admin: 11/10/20 17:49 Dose: 500 mls/hr Documented by: Levofloxacin/Dextrose 750 mg/ (Premix) 150 mls @ 100 mls/hr IV Q24H [facility] Last Admin: 11/10/20 17:50 Dose: 100 mls/hr Documented by: Potassium Chloride 20 meq/ (Premix) 100 mls @ 50 mls/hr IV ONETIME ONE Stop: 11/10/20 21:49 Last Admin: 11/10/20 20:15 Dose: 50 mls/hr Documented by: Potassium Chloride 20 meq/ (Premix) 100 mls @ 50 mls/hr IV ONETIME ONE Stop: 11/11/20 07:39 Last Admin: 11/11/20 06:04 Dose: 50 mls/hr Documented by: Insulin Human Lispro (Insulin Lispro 100 Unit/Ml 3 Ml Kwikpen) 0 unit SUBCUT QIDACANDBED [facility]; Protocol Last Admin: 11/11/20 08:19 Dose: Not Given Documented by: Lidocaine HCl (Lidocaine 1% 5 Ml Sdv) 5 ml INJECT ONETIME ONE Stop: 11/10/20 20:08 Last Admin: 11/10/20 20:16 Dose: 2 ml Documented by: Lidocaine HCl (Lidocaine 1% 5 Ml Sdv) 2 ml INJECT ONETIME ONE Stop: 11/11/20 05:43 Last Admin: 11/11/20 06:05 Dose: 2 ml Documented by: Non-Formulary Medication (Exenatide Microspheres [Bydureon Pen]) 2 mg SQ WEEKLY [facility] Potassium Chloride (Potassium Chloride 20 Meq Tab.Er) 40 meq PO ONETIME ONE Stop: 11/11/20 09:01 Last Admin: 11/11/20 09:11 Dose: 40 meq Documented by: Potassium Chloride (Potassium Chloride 20 Meq Tab.Er) 40 meq PO ONETIME ONE Stop: 11/11/20 18:27 Last Admin: 11/11/20 18:32 Dose: 40 meq Documented by: Potassium Chloride (Potassium Chloride 20 Meq Tab.Er) 40 meq PO ONETIME ONE Stop: 11/12/20 08:31 Last Admin: 11/12/20 09:03 Dose: 40 meq Documented by: Zolpidem Tartrate (Zolpidem 5 Mg Tab) 10 mg PO BEDTIME [facility] Last Admin: 11/12/20 21:10 Dose: 10 mg Documented by: - Exam Quality Assessment: Supplemental Oxygen, DVT Prophylaxis General: Alert, Oriented, Cooperative, Mild Distress Lungs: Clear to Auscultation, Normal Respiratory Effort, Decreased Breath Sounds. No: Rales, Rhonchi, Wheezing Cardiovascular: Regular Rate, Regular Rhythm, No Murmurs GI/Abdominal Exam: Soft, Non-Tender, No Organomegaly, No Distention Extremities: Non-Tender, No Pedal Edema - Patient Data Lab Results Last 24 hrs: Laboratory Results - last 24 hr 11/12/20 11/12/20 11/13/20 Range/Units 16:30 21:00 06:20 Sodium 136 L (140-148) mmol/L Potassium 3.7 (3.6-5.2) mmol/L Chloride 97 L (100-108) mmol/L Carbon Dioxide 29 (21-32) mmol/L Anion Gap 13.7 (5.0-14.0) mmol/L BUN 30 H (7-18) mg/dL Creatinine 1.9 H (0.8-1.3) mg/dL Est Cr Clr Drug Dosing 25.79 mL/min Estimated GFR (MDRD) 34 L (>60) Glucose 117 H (74-106) mg/dL POC Glucose 296 H 241 H (74-106) MG/DL Calcium 8.7 (8.5-10.1) mg/dL 11/13/20 11/13/20 Range/Units 07:30 11:30 Sodium (140-148) mmol/L Potassium (3.6-5.2) mmol/L Chloride (100-108) mmol/L Carbon Dioxide (21-32) mmol/L Anion Gap (5.0-14.0) mmol/L BUN (7-18) mg/dL Creatinine (0.8-1.3) mg/dL Est Cr Clr Drug Dosing mL/min Estimated GFR (MDRD) (>60) Glucose (74-106) mg/dL POC Glucose 107 H 220 H (74-106) MG/DL Calcium (8.5-10.1) mg/dL Result Diagrams: 11/11/20 04:10 11/13/20 06:20 Antony Results Last 24 hrs: Microbiology 11/10/20 17:40 Aerobic Blood Culture - Preliminary Blood - Venous - Iv Start NO GROWTH AFTER 2 DAYS Anaerobic Blood Culture - Preliminary NO GROWTH AFTER 2 DAYS 11/10/20 17:45 Aerobic Blood Culture - Preliminary Blood - Venous - Iv Start NO GROWTH AFTER 2 DAYS Anaerobic Blood Culture - Preliminary NO GROWTH AFTER 2 DAYS Sepsis Event Note - Evaluation Sepsis Screening Result: No Definite Risk - Focused Exam Vital Signs: Vital Signs Temp Pulse Resp BP BP Pulse Ox 11/13/20 14:54 96.1 F L 94 16 116/68 98 11/13/20 11:00 95.4 F L 87 16 99/54 L 93 L 11/13/20 08:14 123/65 11/13/20 08:11 123/65 11/13/20 07:00 96.4 F L 88 16 105/46 L 93 L - Problem List Review Problem List Initiated/Reviewed/Updated: Yes - My Orders Last 24 Hours: My Active Orders 11/14/20 05:00 BASIC METABOLIC PANEL,BMP [CHEM] Timed - Plan Plan:: ASSESSMENT AND PLAN DIASTOLIC CONGESTIVE HEART FAILURE, suspected-edema better and shortness of polina ath is better but not back to baseline. Proved since admission with less shortness of breath. Creatinine increased further over the last 24 hours. Echocardiogram obtained this morning, results pending. -Hold diuretic therapy today -Echo results pending -Monitor intake and output -saline lock IV -Supplement oxygen if needed TYPE 2 DIABETES MELLITUS-well controlled so far. -Continue usual dose of long-acting insulin -Continue glipizide -before meals and at bedtime glucometers -consistent carb diet CHRONIC KIDNEY DISEASE STAGE III-creatinine increased from baseline with diuresis -Hold diuretic therapy today -Reassess kidney function in a.m. HYPOKALEMIA-resolved -recheck Potassium in am. ELEVATED TROPONIN-this is most likely related to demand ischemia with CHF. MAINTENANCE ISSUES -DVT prophylaxis; Lovenox 40 mg subcu daily -GI prophylaxis; continue PPI therapy -Robin catheter; not indicated -Nutrition- consistent carb diet DISPOSITION-anticipate discharge to home possibly with home care after the hospital stay.
[2020-11-13] MEDS: Montelukast 10 MG Tab PO SCH (20:11)
[2020-11-13] MEDS: atorvaSTATin 20 MG Tab PO SCH (20:11)
[2020-11-13] MEDS: traZODone 50 MG Tab PO SCH (20:11)
[2020-11-13] MEDS: Pramipexole 0.5 MG Tab PO SCH (20:26)
[2020-11-13] MEDS ORDERED: Enoxaparin 30 MG/0.3 ML Syringe SUBCUT SCH (21:00)
[2020-11-14] MEDS: glipiZIDE 5 MG Tab PO SCH (07:36)
[2020-11-14] MEDS: Pantoprazole 40 MG Tab.CR PO SCH (07:36)
[2020-11-14] MEDS: Tiotropium BR/Olodaterol HCL 4 GM Inhalation Spray 2.5mcg/1 dose; 10 doses INH SCH (07:38)
[2020-11-14] MEDS: Acetaminophen/HYDROcodone 325-5 MG Tab PO SCH (08:36)
[2020-11-14] MEDS: Trospium 20 MG Tab PO SCH (08:37)
[2020-11-14] MEDS: Isosorbide Mononitrate 30 MG Tab.ER PO SCH (08:37)
[2020-11-14] MEDS: Tamsulosin 0.4 MG Cap.ER PO SCH (08:37)
[2020-11-14] MEDS: Hydrochlorothiazide 25 MG Tab PO SCH (08:37)
[2020-11-14] MEDS: Lisinopril 2.5 MG Tab PO SCH (08:38)
[2020-11-14] MEDS: predniSONE 5 MG Tab PO SCH (08:38)
[2020-11-14] MEDS: Escitalopram 20 MG Tab PO SCH (08:38)
[2020-11-14] MEDS: Insulin Glargine,Human Rec. Analog 100 Units/ML 3 ML Pen SUBCUT SCH ×2 (08:44→09:23)
[2020-11-14] MEDS: Triamcinolone Acetonide 0.1% Crm 80 GM Tube TOP SCH (08:47)
[2020-11-14] MEDS: Fluticasone Propionate Nasal Spray 16 GM Bottle NASBOTH SCH (08:47)
[2020-11-14] MEDS ORDERED: Furosemide 40 MG Tab PO SCH (09:00)
[2020-11-14 10:26] VITALS: BP 129/68; PULSE 84
--- NOTE | 2020-11-14 12:47 | PCM.DCSUM1 ---
Discharge Summary - Hospital Course Brief History: Mr. Corbin is a 80-year-old gentleman who was admitted through the emergency department with progressive shortness of breath, secondary to diastolic congestive heart failure exacerbation. - Discharge Data Discharge Date: 11/14/20 Discharge Disposition: Home, Self-Care 01 Condition: Stable - Referral to Home Health Primary Care Physician: Odell Gloria MD - Discharge Diagnosis/Problem(s) (1) Congestive heart failure (CHF) SNOMED Code(s): 83624499 ICD Code: I50.9 - HEART FAILURE, UNSPECIFIED Status: Acute Priority: High Current Visit: Yes Qualifiers: Heart failure type: unspecified Heart failure chronicity: acute on chronic Qualified Code(s): I50.9 - Heart failure, unspecified (2) CKD (chronic kidney disease) stage 3, GFR 30-59 ml/min SNOMED Code(s): 635357163 ICD Code: N18.30 - CHRONIC KIDNEY DISEASE, STAGE 3 UNSPECIFIED Status: Acute Current Visit: Yes (3) Hypokalemia SNOMED Code(s): 40029855 ICD Code: E87.6 - HYPOKALEMIA Status: Acute Priority: Medium Current Visit: Yes (4) Type 2 diabetes mellitus SNOMED Code(s): 08248436 ICD Code: E11.9 - TYPE 2 DIABETES MELLITUS WITHOUT COMPLICATIONS Status: [facility] Priority: Medium Current Visit: Yes Qualifiers: Diabetes mellitus terminal computer operator insulin use: with terminal computer operator use - Patient Summary/Data Consults: Consultations 11/11/20 09:52 PT Evaluation and Treatment [CONS] Routine Please Evaluate and Treat. PT Reason for Consult: Strengthening This query below is only for informational purposes and is not editable. Admission Diagnosis/Problem: Congestive heart failure Hospital Course: Mr. Corbin is a 80-year-old gentleman who was admitted through the emergency department with progressive shortness of breath secondary to diastolic congestive heart failure exacerbation. He does have a known history of COPD, but does not require home oxygen. He had developed progressive symptoms of shortness of breath and associated with this was some increase in peripheral edema. He presented to the emergency department for further evaluation. There was no evidence of significant underlying pulmonary infection or COPD exacerbation. He was felt to have evidence of pulmonary edema on chest x-ray. He was admitted to the hospital and given IV diuretic therapy and over the next few days had good improvement in his shortness of breath as well as overall strength. Edema was also noted to improve. Echocardiogram was obtained which showed preserved left ventricular systolic function, LVH, and mild . Formal report for the echocardiogram was still pending at the time of discharge. He did experience a transient worsening of his chronic kidney disease with diuretic therapy and on the day prior to discharge diuretics were held. Blood glucose levels were monitored throughout hospital stay and he was continued on his usual medications for diabetes except for Metformin. Sliding scale Humalog was needed for management of glucose levels. He will be discharged home with increased dose of oral furosemide 40 mg p.o. daily. He is encouraged to follow a strict low-sodium diet. Follow-up appointment will be scheduled with his primary care provider within 1 week, BMP should be obtained at the time of follow-up appointment. Activity will be as tolerated and he will be on a consistent carb low-sodium diet. - Patient Instructions Diet: Low Sodium, Diabetic Diet Activity: As Tolerated Other/Special Instructions: Please schedule follow-up appointment with primary care provider within 1 week. BMP should be obtained at the time of follow-up appointment. - Discharge Plan *PRESCRIPTION DRUG MONITORING PROGRAM REVIEWED*: Not Applicable *COPY OF PRESCRIPTION DRUG MONITORING REPORT IN PATIENT DONAVAN: Not Applicable Prescriptions/Med Rec: Furosemide [Lasix] 40 mg PO DAILY #30 tablet Home Medications: Home Meds Albuterol [Ventolin HFA] 2 puff INH Q4H PRN 09/24/13 [History] Cyclobenzaprine [Flexeril] 10 - 15 mg PO BEDTIME PRN 09/24/13 [History] Escitalopram [Lexapro] 20 mg PO DAILY 09/24/13 [History] Isosorbide Mononitrate [Imdur] 30 mg PO DAILY 09/24/13 [History] Lisinopril [Zestril] 2.5 mg PO DAILY 09/24/13 [History] Montelukast [Singulair] 10 mg PO DAILY 09/24/13 [History] Nitroglycerin [Nitrostat] 0.4 mg SL ASDIRECTED PRN 09/24/13 [History] Pramipexole [Mirapex] 2 mg PO BEDTIME 09/24/13 [History] atorvaSTATin [Lipitor] 20 mg PO BEDTIME 09/24/13 [History] hydroCHLOROthiazide [Hydrochlorothiazide] 25 mg PO DAILY 09/24/13 [History] metFORMIN HCl [Glucophage] 1,000 mg PO BIDM 09/24/13 [History] traZODone HCl [Trazodone HCl] 150 mg PO BEDTIME 09/24/13 [History] Aspirin [Low Dose Aspirin EC] 81 mg PO DAILY 09/30/14 [History] Fluticasone Propionate [Flonase] 2 spray NS DAILY 09/30/14 [History] Triamcinolone Acetonide [Kenalog 0.1% Crm] 1 applic TOP BID 09/30/14 [History] Exenatide Microspheres [Bydureon Pen] 2 mg SQ WEEKLY 09/18/16 [History] Insulin Glargine,Hum.Rec.Anlog [Lantus Solostar] 14 units SQ Q12H 11/05/19 [History] Tamsulosin HCl [Flomax] 0.4 mg PO DAILY 11/05/19 [History] Tolterodine Tartrate [Detrol LA] 4 mg PO DAILY 11/05/19 [History] glipiZIDE [Glucotrol] 10 mg PO BID 11/05/19 [History] predniSONE [Prednisone] 5 mg PO DAILY 11/05/19 [History] Albuterol [Proventil Neb Soln] 2.5 mg NEB Q4H PRN #60 neb 11/07/19 [Rx] Acetaminophen/HYDROcodone [[place] 325-5 MG] 1 tab PO DAILY 11/10/20 [History] Omeprazole 40 mg PO BIDAC 11/10/20 [History] Trospium Chloride 20 mg PO DAILY 11/10/20 [History] Umeclidinium Brm/Vilanterol Tr [Anoro Ellipta 62.5-25 MCG] 1 puff IH DAILY 11/10/20 [History] Furosemide [Lasix] 40 mg PO DAILY #30 tablet 11/14/20 [Rx] Patient Handouts: Heart Failure, Self Care, [id number] Referrals: Odell Gloria MD [Primary Care Provider] - 11/23/20 2:00 pm (Your appointment with Dr. Gloria will be at the [facility]. Please arrive 15 minutes early to register.) - Discharge Summary/Plan Comment DC Time >30 min.: No - Patient Data Vitals - Most Recent: Last Vital Signs Temp 95.5 F L 11/14/20 10:23 Pulse 84 11/14/20 10:23 Resp 16 11/14/20 10:23 BP 129/68 11/14/20 10:23 Pulse Ox 96 11/14/20 10:23 Weight - Most Recent: 236 lb I&O - Last 24 hours: Intake & Output 11/13/20 11/14/20 11/14/20 22:59 06:59 14:59 Intake Total 720 890 Output Total 800 Balance -80 890 Lab Results - Last 24 hrs: Laboratory Results - last 24 hr 11/13/20 11/13/20 11/14/20 Range/Units 16:46 21:19 05:30 Sodium 136 L (140-148) mmol/L Potassium 3.7 (3.6-5.2) mmol/L Chloride 97 L (100-108) mmol/L Carbon Dioxide 28 (21-32) mmol/L Anion Gap 14.7 H (5.0-14.0) mmol/L BUN 29 H (7-18) mg/dL Creatinine 1.7 H (0.8-1.3) mg/dL Est Cr Clr Drug Dosing 28.82 mL/min Estimated GFR (MDRD) 39 L (>60) Glucose 73 L (74-106) mg/dL POC Glucose 125 H 119 H (74-106) MG/DL Calcium 8.8 (8.5-10.1) mg/dL CIERRA Results - Last 24 hrs: Microbiology 11/10/20 17:40 Aerobic Blood Culture - Preliminary Blood - Venous - Iv Start NO GROWTH AFTER 3 DAYS Anaerobic Blood Culture - Preliminary NO GROWTH AFTER 3 DAYS 11/10/20 17:45 Aerobic Blood Culture - Preliminary Blood - Venous - Iv Start NO GROWTH AFTER 3 DAYS Anaerobic Blood Culture - Preliminary NO GROWTH AFTER 3 DAYS Med Orders - Current: Current Medications Acetaminophen (Acetaminophen 325 Mg Tab) 650 mg PO Q4H PRN PRN Reason: Pain (Mild 1-3)/fever Hydrocodone Bitart/Acetaminophen (Acetaminophen/Hydrocodone 325-5 Mg Tab) 1 tab PO DAILY [facility]LA Last Admin: 11/14/20 08:36 Dose: 1 tab Documented by: Albuterol (Albuterol 0.083% 2.5 Mg/3 Ml Neb Soln) 2.5 mg NEB Q4H PRN PRN Reason: Shortness Of Breath/wheezing Last Admin: 11/13/20 00:39 Dose: 2.5 mg Documented by: Albuterol/Ipratropium (Albuterol/Ipratropium 3.0-0.5 Mg/3 Ml Neb Soln) 3 ml NEB QID PRN PRN Reason: Shortness Of Breath/wheezing Last Admin: 11/11/20 10:07 Dose: 3 ml Documented by: Atorvastatin Calcium (Atorvastatin 20 Mg Tab) 20 mg PO BEDTIME [facility] Last Admin: 11/13/20 20:11 Dose: 20 mg Documented by: Bisacodyl (Bisacodyl 5 Mg Tab) 5 mg PO DAILY PRN PRN Reason: Constipation Cyclobenzaprine HCl (Cyclobenzaprine 10 Mg Tab) 10 - 15 mg PO BEDTIME PRN PRN Reason: Muscle Spasm Dextrose/Water (50% Dextrose In Water 50 Ml Syringe) 50 ml IVPUSH ASDIRECTED PRN PRN Reason: Hypoglycemia Docusate Sodium (Docusate Sodium 100 Mg Cap) 100 mg PO BID PRN PRN Reason: Constipation Last Admin: 11/13/20 20:11 Dose: 100 mg Documented by: Enoxaparin Sodium (Enoxaparin 30 Mg/0.3 Ml Syringe) 30 mg SUBCUT BEDTIME [facility] Last Admin: 11/13/20 20:12 Dose: 30 mg Documented by: Escitalopram Oxalate (Escitalopram 20 Mg Tab) 20 mg PO DAILY [facility] Last Admin: 11/14/20 08:38 Dose: 20 mg Documented by: Fluticasone Propionate (Fluticasone Propionate Nasal [place] 16 Gm Bottle) 0 gm NASBOTH DAILY [facility] Last Admin: 11/14/20 08:47 Dose: 2 sprays Documented by: Furosemide (Furosemide 40 Mg Tab) 40 mg PO DAILY [facility] Last Admin: 11/14/20 09:00 Dose: 40 mg Documented by: Glipizide (Glipizide 5 Mg Tab) 5 mg PO BIDAC [facility] Last Admin: 11/14/20 07:36 Dose: 5 mg Documented by: Glucagon (Glucagon,Human Recombinant 1 Mg Vial) 1 mg IM ASDIRECTED PRN PRN Reason: Hypoglycemia Hydrochlorothiazide (Hydrochlorothiazide 25 Mg Tab) 25 mg PO DAILY [facility] Last Admin: 11/14/20 08:37 Dose: 25 mg Documented by: Insulin Glargine (Insulin Glargine,Human Rec. Analog 100 Units/Ml 3 Ml Pen) 14 units SUBCUT Q12H [facility] Last Admin: 11/14/20 09:23 Dose: Not Given Documented by: Isosorbide Mononitrate (Isosorbide Mononitrate 30 Mg Tab.Er) 30 mg PO DAILY [facility] Last Admin: 11/14/20 08:37 Dose: 30 mg Documented by: Lisinopril (Lisinopril 2.5 Mg Tab) 2.5 mg PO DAILY [facility] Last Admin: 11/14/20 08:38 Dose: 2.5 mg Documented by: Lorazepam (Lorazepam 2 Mg/Ml Sdv) 1 mg IV Q6H PRN PRN Reason: Nausea/Vomiting Montelukast Sodium (Montelukast 10 Mg Tab) 10 mg PO BEDTIME [facility] Last Admin: 11/13/20 20:11 Dose: 10 mg Documented by: Morphine Sulfate (Morphine 2 Mg/Ml Syringe) 2 mg IVPUSH Q2H PRN PRN Reason: Pain (severe 7-10) Nitroglycerin (Nitroglycerin 0.4 Mg Tab.Sl) 0.4 mg SL ASDIRECTED PRN PRN Reason: Chest Pain Ondansetron HCl (Ondansetron 4 Mg Tab.Dis) 4 mg PO Q6H PRN PRN Reason: Nausea able to take PO Oxycodone HCl (Oxycodone 5 Mg Tab) 5 mg PO Q4H PRN PRN Reason: Pain (moderate 4-6) Pantoprazole Sodium (Pantoprazole 40 Mg Tab.Cr) 40 mg PO BIDAC [facility] Last Admin: 11/14/20 07:36 Dose: 40 mg Documented by: Pramipexole Dihydrochloride (Pramipexole 0.5 Mg Tab) 2 mg PO BEDTIME [facility] Last Admin: 11/13/20 20:26 Dose: 2 mg Documented by: Prednisone (Prednisone 5 Mg Tab) 5 mg PO DAILY [facility] Last Admin: 11/14/20 08:38 Dose: 5 mg Documented by: Tamsulosin HCl (Tamsulosin 0.4 Mg Cap.Er) 0.4 mg PO DAILY [facility] Last Admin: 11/14/20 08:37 Dose: 0.4 mg Documented by: Trazodone HCl (Trazodone 50 Mg Tab) 150 mg PO BEDTIME [facility] Last Admin: 11/13/20 20:11 Dose: 150 mg Documented by: Triamcinolone Acetonide (Triamcinolone Acetonide 0.1% Crm 80 Gm Tube) 0 gm TOP BID [facility] Last Admin: 11/14/20 08:47 Dose: 1 applic Documented by: Trospium (Trospium 20 Mg Tab) 20 mg PO DAILY [facility] Last Admin: 11/14/20 08:37 Dose: 20 mg Documented by: Discontinued Medications Bumetanide (Bumetanide 2.5 Mg/10 Ml Mdv) 2 mg IVPUSH ONETIME ONE Stop: 11/10/20 19:49 Last Admin: 11/10/20 20:14 Dose: 2 mg Documented by: Bumetanide (Bumetanide 1 Mg/4 Ml Mdv) 2 mg IVPUSH ONETIME ONE Stop: 11/11/20 10:56 Last Admin: 11/11/20 11:00 Dose: 2 mg Documented by: Bumetanide (Bumetanide 1 Mg/4 Ml Mdv) 1 mg IVPUSH ONETIME ONE Stop: 11/12/20 13:01 Last Admin: 11/12/20 13:09 Dose: 1 mg Documented by: Enoxaparin Sodium (Enoxaparin 40 Mg/0.4 Ml Syringe) 40 mg SUBCUT DAILY [facility] Last Admin: 11/10/20 22:22 Dose: 40 mg Documented by: Enoxaparin Sodium (Enoxaparin 40 Mg/0.4 Ml Syringe) 40 mg SUBCUT BEDTIME [facility] Last Admin: 11/12/20 21:11 Dose: 40 mg Documented by: Escitalopram Oxalate (Escitalopram 10 Mg Tab) 10 mg PO DAILY [facility] Last Admin: 11/11/20 09:12 Dose: 10 mg Documented by: Furosemide (Furosemide 20 Mg Tab) 20 mg PO DAILY [facility] Glipizide (Glipizide 5 Mg Tab) 10 mg PO BID [facility] Last Admin: 11/11/20 09:17 Dose: 5 mg Documented by: Lactated Ringer's (Ringers, Lactated) 1,000 mls @ 500 mls/hr IV ASDIRECTED [facility] Last Admin: 11/10/20 17:49 Dose: 500 mls/hr Documented by: Levofloxacin/Dextrose 750 mg/ (Premix) 150 mls @ 100 mls/hr IV Q24H [facility] Last Admin: 11/10/20 17:50 Dose: 100 mls/hr Documented by: Potassium Chloride 20 meq/ (Premix) 100 mls @ 50 mls/hr IV ONETIME ONE Stop: 11/10/20 21:49 Last Admin: 11/10/20 20:15 Dose: 50 mls/hr Documented by: Potassium Chloride 20 meq/ (Premix) 100 mls @ 50 mls/hr IV ONETIME ONE Stop: 11/11/20 07:39 Last Admin: 11/11/20 06:04 Dose: 50 mls/hr Documented by: Insulin Human Lispro (Insulin Lispro 100 Unit/Ml 3 Ml Kwikpen) 0 unit SUBCUT QIDACANDBED [facility]; Protocol Last Admin: 11/11/20 08:19 Dose: Not Given Documented by: Lidocaine HCl (Lidocaine 1% 5 Ml Sdv) 5 ml INJECT ONETIME ONE Stop: 11/10/20 20:08 Last Admin: 11/10/20 20:16 Dose: 2 ml Documented by: Lidocaine HCl (Lidocaine 1% 5 Ml Sdv) 2 ml INJECT ONETIME ONE Stop: 11/11/20 05:43 Last Admin: 11/11/20 06:05 Dose: 2 ml Documented by: Non-Formulary Medication (Exenatide Microspheres [Bydureon Pen]) 2 mg SQ WEEKLY [facility] Potassium Chloride (Potassium Chloride 20 Meq Tab.Er) 40 meq PO ONETIME ONE Stop: 11/11/20 09:01 Last Admin: 11/11/20 09:11 Dose: 40 meq Documented by: Potassium Chloride (Potassium Chloride 20 Meq Tab.Er) 40 meq PO ONETIME ONE Stop: 11/11/20 18:27 Last Admin: 11/11/20 18:32 Dose: 40 meq Documented by: Potassium Chloride (Potassium Chloride 20 Meq Tab.Er) 40 meq PO ONETIME ONE Stop: 11/12/20 08:31 Last Admin: 11/12/20 09:03 Dose: 40 meq Documented by: Zolpidem Tartrate (Zolpidem 5 Mg Tab) 10 mg PO BEDTIME [facility] Last Admin: 11/12/20 21:10 Dose: 10 mg Documented by: - Exam Quality Assessment: Reports: DVT Prophylaxis General: Reports: Alert, Cooperative, No Acute Distress Lungs: Reports: Clear to Auscultation, Normal Respiratory Effort Cardiovascular: Reports: Regular Rate, Regular Rhythm, No Murmurs GI/Abdominal Exam: Soft, Non-Tender, No Organomegaly, No Distention Extremities: Non-Tender, No Pedal Edema
== END 2020-11-14 13:00 | disposition home or self-care (01) | DRG 291 ==
LOC: JP.ED 15:54 → JP.MS 21:31
PROVIDERS: ADMIT Internal Medicine; ATTEND Hospitalist
DX: I11.0 Hypertensive heart disease with heart failure (principal); I50.9 Heart failure, unspecified; H54.7 Unspecified visual loss; I13.0 Hypertensive heart and chronic kidney disease with heart failure and stage 1 through stage 4 chronic kidney disease, or unspecified chronic kidney disease; E78.00 Pure hypercholesterolemia, unspecified; I50.33 Acute on chronic diastolic (congestive) heart failure; G47.30 Sleep apnea, unspecified; N18.30 Chronic kidney disease, stage 3 unspecified; G89.29 Other chronic pain; M54.9 Dorsalgia, unspecified; M19.90 Unspecified osteoarthritis, unspecified site; E11.22 Type 2 diabetes mellitus with diabetic chronic kidney disease; F41.9 Anxiety disorder, unspecified; Z87.891 Personal history of nicotine dependence; Z79.82 Long term (current) use of aspirin; Z79.4 Long term (current) use of insulin; Z79.52 Long term (current) use of systemic steroids; Z79.899 Other long term (current) drug therapy; E87.6 Hypokalemia; J44.9 Chronic obstructive pulmonary disease, unspecified; I25.10 Atherosclerotic heart disease of native coronary artery without angina pectoris; E78.5 Hyperlipidemia, unspecified; K21.9 Gastro-esophageal reflux disease without esophagitis; Z86.010 Personal history of colon polyps; G47.33 Obstructive sleep apnea (adult) (pediatric); Z87.440 Personal history of urinary (tract) infections; F32.9 Major depressive disorder, single episode, unspecified; Z98.42 Cataract extraction status, left eye; Z98.41 Cataract extraction status, right eye; Z20.822 Contact with and (suspected) exposure to COVID-19
CPT/HCPCS: 0241U; 36415; 71046; 80048; 80053; 81001; 82962; 83605; 83880; 84132; 84145; 84484; 85025; 86140; 87040; 93005; 93306; 94640; 94762; 96365; 96367; 96375; 97110; 97162; 97530; 99285; 99222; 99231; 99232; 99238; A9270-GY; J1650; J1815; J1815-GY; J1956; J3480; J3490; J7120; J7512; J7620-GY